=== PATIENT | female | born 1945 | race Caucasian/White ===

== ENCOUNTER 2017-02-05 07:47 | Emergency (ER) | payer MEDICARE ==
[2017-02-05 08:06] LABS: Urine Bilirubin Negative (NEGATIVE); Urine Blood 25 /ul (NEGATIVE); Urine Ketone 15 mg/dL (NEGATIVE); Urine Nitrite Negative (NEGATIVE); Urine Protein Negative (NEGATIVE); Urine Urobilinogen Normal (NORMAL); Urine pH 5.5 pH (5.0-7.0)
[2017-02-05 08:24] LABS: Hematocrit 38.2 % (37.0-47.0); Hemoglobin 11.9 gm/dL (12.5-16.0); Mean Cell Volume 82.3 fl (78-100); Mean Corpuscular Hemoglobin 25.6 pg (27-31); Mean Corpuscular Hgb Conc 31.2 g/dl (32-36); Mean Platelet Volume 11.6 fl (6.0-9.5); Neutrophil # 4.6 K/mm3 (1.3-6.0); Neutrophil % 70.7 % (42-75.0); Platelet Count 224 K/mm3 (150-450); Red Blood Count 4.64 M/mm3 (4.2-5.4); Red Cell Distribution Width 14.2 % (11.5-14.0); White Blood Count 6.5 K/mm3 (4.0-10.5)
[2017-02-05 08:29] LABS: Urine Appearance Clear; Urine Bacteria None Seen; Urine Color Yellow; Urine RBC TRACE /hpf (0-5); Urine WBC None Seen /hpf (0-5)
[2017-02-05 08:37] LABS: Albumin * 3.1 gm/dl (3.4-5.0); Anion Gap 17.3 mmol/L (6.8-13.8); BUN/Creatinine Ratio 24.3 (9.0-21.6); Bilirubin, Total 0.5 mg/dL (0.0-1.1); Ca. Corrected For Albumin 9.6 mg/dL (8.4-10.2); Calcium * 9.2 mg/dL (7.9-10.9); Carbon Dioxide 26.4 mmol/L (24-32.6); Magnesium 1.8 mg/dL (1.2-2.8); Potassium 4.7 mmol/L (3.4-4.6); Total Protein 7.8 gm/dL (6.2-8.2)
--- NOTE | 2017-02-05 09:17 | ERNOTE ---
Medical Problem HPI - General Chief Complaint: General Assessment Time Seen by Provider: 02/05/17 08:09 Source: patient, EMS Exam Limitations: no limitations - Immun/Allergies/Home Medications Immunizations: IMMUNIZATION HX Immunizations Up to Date Yes History of Influenza Vaccine No Hx Pneumococcal Vaccination No Allergies/Adverse Reactions: Allergies No Known Allergies Allergy (Verified 02/05/17 08:02) Home Medications: HOME MEDICATIONS Levothyroxine Sodium [Synthroid] 75 mcg PO DAILY@0700 #60 tablet 05/05/16 [Last Taken Unknown] Lisinopril [Zestril] 10 mg PO BID #60 tablet 05/05/16 [Last Taken Unknown] metFORMIN HCL [Metformin HCl ER] 500 mg PO BIDWM #60 [id number] 05/05/16 [Last Taken Unknown] Atenolol [Tenormin] 50 mg PO DAILY 02/05/17 [Last Taken Unknown] Furosemide [Lasix] 40 mg PO BID 02/05/17 [Last Taken Unknown] Insulin Glargine,Hum.rec.anlog [Lantus] 12 units SC DAILY 02/05/17 [Last Taken Unknown] - History of Present History Narrative: Patient states she has a long-standing history of falls and that when she falls she is unable to get up. She went outside today and stepped on uneven ground and fell an ambulance had to come and bring her into the emergency room. Patient states that she will not use a walker or cane because they make her more likely to fall. Patient denies any complaint of any kind. Timing: other - chronic falling Review of Systems - Review of Systems Constitutional: Present: See HPI EYE: Present: no symptoms reported ENT: Present: no symptoms reported Respiratory: Present: no symptoms reported Cardiology: Present: no symptoms reported Gastrointestinal/Abdominal: Present: no symptoms reported Genitourinary: Present: no symptoms reported Musculoskeletal: Present: no symptoms reported Skin: Present: no symptoms reported Neurological: Present: no symptoms reported Endocrine: Present: no symptoms reported Hematologic/Lymphatic: Present: no symptoms reported Psych: Present: no symptoms reported - Patient's Past Medical History Patient History - Medical: Diabetes Type 2, GERD, Hypothyroidism, Other Patient History - Cardiac/Respiratory: CHF, Hypertension Patient History - Surgical Procedures: Cholecystectomy, T & A, Other - Tonsilectomy Patient History - Other: None - Family History Mother Family History - Medical: , Diabetes Type 2 Family History - Cardiac/Respiratory: History Unknown Father Family History - Medical: History Unknown - Social History Living Situations: home Abuse History: No History of abuse Psych History: No pertinent hx Does anyone smoke in the home?: No Alcohol Use: none Drug Use: none - Immunizations Immunizations Up to Date: Yes Hx Pneumococcal Vaccination: No History of Influenza Vaccine: No Physical Exam - Physical Exam General Appearance: Present: wd/wn, alert, no apparent distress Eye Exam: Normal inspection: bilateral, PERRL: bilateral Ears, Nose, Throat: Present: normal ENT inspection Neck: Present: normal inspection, nontender Respiratory: Present: no respiratory distress, normal breath sounds, no accessory muscle use Cardiovascular/Chest: Present: regular rate, rhythm, no murmur, normal peripheral pulses Gastrointestinal/Abdominal: Present: normal bowel sounds, nontender, nondistended, soft, no organomegaly Rectal Exam: Present: deferred Back Exam: Present: normal inspection, normal range of motion Extremity Exam: Present: normal inspection, non-tender, no edema, normal range of motion Neurological Exam: Present: disoriented to situation - I suspect an underlying dementia Skin Exam: Present: normal color, warm/dry Lymphatic Exam: Present: no adenopathy ED Progress - Results and Orders Patient's Lab Results:: I have reviewed the patient's lab results. - Vital Signs Patient's Vital Signs:: I have reviewed the patient's vital signs. Vital Signs: Vital Signs 02/05/17 02/05/17 07:49 08:25 Temperature 36.7 C 36.2 C L Pulse Rate 84 97 Respiratory 12 12 Rate Blood Pressure 155/74 146/59 O2 Sat by Pulse 100 98 Oximetry - CT/Ultrasound CT/Ultrasound Narrative: CT of the head was reviewed by me - Progress/Reassessment Chief Complaint: General Assessment Plan - Plan Plan: We are making attempts to try to raise the son by phone. It would be beneficial if we had more history about the patient so we can make the determination of whether she has dementia or not. Medically she appears to be stable however her underlying mental status needs to be determined. The patient is medically stable to be sent home and recommend a home health evaluation and patient will be referred back to her family physician as well for ongoing care and assessment for possible early dementia. Departure - Departure Clinical Impression: Recurrent falls, Cellulitis of both lower extremities Disposition: Home self-care Condition: Good Instructions: Fall Prevention in the Home, [id number] Additional Instructions: Call Dr. Murillo for an appointment Referrals: Fan Murillo MD [Primary Care Provider] -
[2017-02-05 10:55] VITALS: BP 157/69
== END 2017-02-05 11:45 | disposition home or self-care (01) ==
LOC: ER 07:47
DX: L03.116 Cellulitis of left lower limb (principal); L03.115 Cellulitis of right lower limb; R29.6 Repeated falls; E11.9 Type 2 diabetes mellitus without complications; Z79.4 Long term (current) use of insulin; E03.9 Hypothyroidism, unspecified; I10 Essential (primary) hypertension; I50.9 Heart failure, unspecified

== ENCOUNTER 2017-07-16 20:02 | Inpatient (IN) | payer MEDICARE ==
--- NOTE | 2017-07-16 21:45 | ERNOTE ---
Neuro HPI ER Record Presenting Symptoms: weakness Time Seen by Provider: 07/16/17 21:15 Source: family Exam Limitations: clinical condition Immunizations: IMMUNIZATION HX Immunizations Up to Date Yes History of Influenza Vaccine No Hx Pneumococcal Vaccination No Allergies/Adverse Reactions: Allergies Allergy/AdvReac Type Severity Reaction Status Date / Time No Known Allergies Allergy Verified 07/16/17 20:20 Home Medications: HOME MEDICATIONS Levothyroxine Sodium [Synthroid] 75 mcg PO DAILY@0700 #60 tablet 05/05/16 [Last Taken Unknown] metFORMIN HCL [Metformin HCl ER] 500 mg PO BIDWM #60 [id number] 05/05/16 [Last Taken Unknown] Insulin Glargine,Hum.rec.anlog [Lantus] 12 units SC DAILY 02/05/17 [Last Taken Unknown] Lisinopril [Zestril] 10 mg PO DAILY 05/20/17 [Last Taken Unknown] - History of Present Illness Narrative: Son states that the patient has been declining for the past week and worse the past 2-3 days. Her cognition has become very slow and somewhat confused. He states that she also has multiple right leg/ foot pressure ulcers and the right lateral heel wound has gotten worse. Onset: gradual onset Severity: moderate - Character of Deficits Baseline Cognition: Present: alert but confused Baseline Gait: Present: unable to walk Associated Symptoms: Reports: altered mental status. Denies: fever/chills, sweating Review of Systems - Review of Systems Constitutional: Present: recent illness - cough. Absent: fever, chills EYE: Present: no symptoms reported ENT: Absent: nasal drainage Respiratory: Present: shortness of breath, cough Cardiology: Present: no symptoms reported Gastrointestinal/Abdominal: Absent: nausea, vomiting Genitourinary: Absent: frequency, dysuria Musculoskeletal: Present: no symptoms reported Skin: Present: lesions - right leg Neurological: Present: no symptoms reported Endocrine: Present: no symptoms reported Hematologic/Lymphatic: Present: easy bruising - Patient's Past Medical History Patient History - Medical: Diabetes Type 2, GERD, Hypothyroidism, Other Patient History - Cardiac/Respiratory: CHF, CVA/Stroke, Hypertension Patient History - Cancer: No Hx of Cancer Patient History - Surgical Procedures: Cholecystectomy, T & A, Other, Orthopedic Patient History - Other: None - Family History Mother Family History - Medical: , Diabetes Type 2 Family History - Cardiac/Respiratory: History Unknown Family History - Cancer: History Unknown Father Family History - Medical: History Unknown Family History - Cardiac/Respiratory: History Unknown Family History - Cancer: History Unknown - Social History Living Situations: home Abuse History: No History of abuse Psych History: No pertinent hx Smoking Status: Never smoker Have you smoked in the past 12 months: No Do you dip or chew tobacco: No Alcohol Use: none Drug Use: none - Immunizations Immunizations Up to Date: Yes Hx Pneumococcal Vaccination: No History of Influenza Vaccine: No Physical Exam - Physical Exam General Appearance: Present: wd/wn, alert, no apparent distress Head Exam: Present: normal inspection, no evidence of injury Neck: Present: normal inspection, nontender, supple Respiratory: Present: no respiratory distress, rales - left lung. Cardiovascular/Chest: Present: regular rate, rhythm, no murmur Gastrointestinal/Abdominal: Present: normal bowel sounds, nontender, nondistended Extremity Exam: Present: no edema, other - pressure sores right leg (see skin) Neurological Exam: Present: alert Skin Exam: Present: other - heel 3 cm x 2 cm pressure ulcer with thick dry black eschar. There is a crack above heel slightly anterior 1.5 cm x 1 cm, and another pressure wound in the mid leg lateral that is 4 cm x 2 cm dry with scaly skin surrounding. Bilateral legs are scaly and peeling. Right leg is somewhat red in color from mid tibia to foot. Toes are somewhat deformed and toenails are distrophic and deformed. ED Progress - Results and Orders Patient's Lab Results:: I have reviewed the patient's lab results. Results and Orders: Laboratory Tests 07/16/17 07/16/17 07/16/17 20:12 21:20 21:50 WBC 10.9 H Hgb 9.9 L Hct 31.3 L Plt Count 275 Neutrophils % 89.5 H Sodium Potassium Chloride Carbon Dioxide Anion Gap BUN Creatinine Est GFR (Non-Af Amer) Random Glucose Lactic Acid, Venous Calcium Total Bilirubin AST ALT Alkaline Phosphatase Troponin I 0.125 H* B-Natriuretic [place]ptide [place] [address] H Total Protein Albumin Urine Color Urine Appearance Urine pH Ur Specific Filion Urine Protein Urine Glucose (UA) Urine Ketones Urine Blood Urine Nitrate Urine Bilirubin Prot Sulfosalicylic Acd Urine Urobilinogen Ur Leukocyte Esterase Urine RBC Urine WBC Ur Epithelial Cells Amorphous Sediment Urine Bacteria Coarse Granular Casts Urine Culture Comments Influenza Type A Ag Negative Influenza Type B Ag Negative 07/16/17 07/16/17 07/16/17 21:50 21:50 22:05 WBC Hgb Hct Plt Count Neutrophils % Sodium 139 Potassium 3.7 D Chloride 102 Carbon Dioxide 26.7 Anion Gap 14.0 H BUN 34 H Creatinine 1.75 H D Est GFR (Non-Af Amer) 30 L D Random Glucose 197 H Lactic Acid, Venous 1.9 Calcium 8.4 Total Bilirubin 0.4 AST 30 ALT 17 L Alkaline Phosphatase 74 Troponin I B-Natriuretic Peptide Total Protein 7.2 Albumin 2.0 L Urine Color Kami Urine Appearance Cloudy Urine pH 6.5 Ur Specific Filion 1.025 Urine Protein 100 H Urine Glucose (UA) 100 H Urine Ketones Negative Urine Blood 250 H Urine Nitrate Negative Urine Bilirubin Negative Prot Sulfosalicylic Acd 3+ H Urine Urobilinogen Normal Ur Leukocyte Esterase Negative Urine RBC 25-50 H Urine WBC 0-5 Ur Epithelial Cells None seen Amorphous Sediment Trace Urine Bacteria Trace Coarse Granular Casts Trace Urine Culture Comments No culture indicated Influenza Type A Ag Influenza Type B Ag - Vital Signs Patient's Vital Signs:: I have reviewed the patient's vital signs. Vital Signs: Vital Signs 07/16/17 07/16/17 20:13 20:50 Temperature 37.2 C Pulse Rate 95 91 Respiratory 19 22 H Rate Blood Pressure 146/72 155/65 O2 Sat by Pulse 85 L 92 Oximetry - EKG EKG: NSR, nonspecific ST T wave changes EKG read: Interp. by me EKG Comments: computer reading states "anterior OK probably recent". There is minimal ST elevation in V3 and no significant elevation in V4. Comparison from 05/02/16 reads old anterior OK. - X-Ray X-Ray #1 X-Ray: chest Interpretation: Interp. by me X-ray Comments: patchy infiltrate throughout the right lung and left lower lobe. - CT/Ultrasound CT/Ultrasound Narrative: CT head: generalized volume loss chronic microvascular angiopathy No midline shift or acute hemorrhage no evidence for acute ischemia Inflammitory changes in the paranasal sinuses - Progress/Reassessment Chief Complaint: Altered Mental Status Progress:: Improved Progress Note-Subjective: 07/17/17 00:21 After troponin was found to be slightly elevated hospitalist asked if I would contact the son to inquire if they would want and invasive procedures done if the did have an OK. I spoke to the patients son Neel and he said he would not want invasive procedures done at this time. Hospitalist notified. Departure Clinical Impression: Dehydration, PAD (peripheral artery disease) Pneumonia Qualifiers: Pneumonia type: due to unspecified organism Laterality: bilateral Lung location : unspecified part of lung Qualified Code(s): J18.9 - Pneumonia, unspecified organism Uncontrolled diabetes mellitus Qualifiers: Diabetes mellitus type: type 2 Diabetes mellitus complication status: with circulatory complication Diabetes mellitus complication detail: with peripheral angiopathy without gangrene Diabetes mellitus resource development manager insulin use: with assisted use Qualified Code(s): E11.51 - Type 2 diabetes mellitus with diabetic peripheral angiopathy without gangrene Cellulitis Qualifiers: Site of cellulitis: extremity Site of cellulitis of extremity: lower extremity Laterality: right Qualified Code(s): L03.115 - Cellulitis of right lower limb CHF (congestive heart failure), NYHA class II Qualifiers: Congestive heart failure type: systolic Congestive heart failure chronicity: acute on chronic Qualified Code(s): I50.23 - Acute on chronic systolic ( congestive) heart failure - Departure Disposition: Still a patient Condition: Fair
[2017-07-16 21:49] LABS: Hematocrit 31.3 % (37.0-47.0); Hemoglobin 9.9 gm/dL (12.5-16.0); Mean Cell Volume 78.1 fl (78-100); Mean Corpuscular Hemoglobin 24.7 pg (27-31); Mean Corpuscular Hgb Conc 31.6 g/dl (32-36); Mean Platelet Volume 10.6 fl (6.0-9.5); Neutrophil # 9.8 K/mm3 (1.3-6.0); Neutrophil % 89.5 % (42-75.0); Platelet Count 275 K/mm3 (150-450); Red Blood Count 4.01 M/mm3 (4.2-5.4); Red Cell Distribution Width 16.1 % (11.5-14.0); White Blood Count 10.9 K/mm3 (4.0-10.5)
[2017-07-16 22:03] LABS: BUN/Creatinine Ratio 19.4 (9.0-21.6); Bilirubin, Total 0.4 mg/dL (0.0-1.1); Ca. Corrected For Albumin 9.7 mg/dL (8.4-10.2); Calcium * 8.4 mg/dL (7.9-10.9); Carbon Dioxide 26.7 mmol/L (24-32.6); Potassium 3.7 mmol/L (3.4-4.6); Total Protein 7.2 gm/dL (6.2-8.2)
[2017-07-16] MEDS ORDERED: NORMAL SALINE 1,000 ML IV ONE (22:12)
[2017-07-16 22:16] LABS: Urine Bilirubin Negative (NEGATIVE); Urine Blood 250 /ul (NEGATIVE); Urine Ketone Negative (NEGATIVE); Urine Nitrite Negative (NEGATIVE); Urine Protein 100 mg/dL (NEGATIVE); Urine Specific Gravity 1.025 SP.GR. (1.005-1.010); Urine Urobilinogen Normal (NORMAL); Urine pH 6.5 pH (5.0-7.0)
[2017-07-16 22:28] LABS: Urine Appearance Cloudy; Urine Color Amber
[2017-07-16 22:29] LABS: Urine Amorphous Sediment TRACE (NONE-FEW); Urine Bacteria TRACE; Urine Coarse Granular Cast TRACE /LPF; Urine RBC 25-50 /hpf (0-5); Urine WBC 0-5 /hpf (0-5)
[2017-07-16 23:26] LABS: BNP * Greater than 35000 pg/mL (5-325); Troponin I 0.125 ng/ml (0.00-0.10)
[2017-07-16] MEDS ORDERED: FUROSEMIDE 10 MG/ML VIAL IV ONE (23:56)
[2017-07-16] MEDS ORDERED: FUROSEMIDE 10 MG/ML VIAL ONE (23:58)
[2017-07-17] MEDS ORDERED: AZITHROMYCIN 250 MG TABLET PO ONE (00:39)
[2017-07-17] MEDS ORDERED: ALBUTEROL SULFATE/IPRATROPIUM 3 ML NEBU IH SCH (01:00)
[2017-07-17] MEDS ORDERED: HEPARIN SODIUM,PORCINE 5,000 UNITS/ML VIAL SC SCH (01:00)
--- NOTE | 2017-07-17 01:00 | HP ---
Chief Complaint - Chief Complaint Date of Service: 07/17/17 Time of Service: 00:23 Chief Complaint: "Coughing, Weakness, AMS". Source of HPI- Pt unreliable due to AMS, Pt's son/POA- Logan Young. History of Present Illness: Mrs. Young is a 71-yr-old WF pt of Dr. Adali Murillo with a PMH of: CVA, DM II, GERD, HTN & Osteoathritis. Pt is unable to provide history due to AMS and therefore son, Logan Young who is also POA provided most of the information. He states that for the last 1 week, his mother has been declining. Her thought process does not seem clear and appears not to follow instructions. She has also been very weak and unable to ambulate much due to pain from the ulcer wound on the RT foot. The wound became open 2-3 weeks ago and has been getting worse and black. 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 He finally chose to bring her to the ED as she wasn 't improving. On arrival to ED, POX was found to be 85% RA and required O2 supplementation and was unable to be weaned off as she kept having desaturations. Laboratory studies showed WBC--> 10,900 with a LT shift, ESR--> 104, BUN/CR--> 34/1.75, BNP--> greater than 35,000, Troponin-->0.125. On physical exam, she has non-pitting BLE, with erythema and an ulcer on RT ankle with eschar tissue. The head CT did not have any acute findings. The CXR showed Bilateral infiltrates suggestive of Pneumonia, but Pulmonary edema also could not be excluded. Pt will need to be admitted inpatient for Pneumonia,CHF exacerbation and Cellulitis. - Patient's Past Medical History Patient History - Medical: Diabetes Type 2, GERD, Hypothyroidism, Other Patient History - Cardiac/Respiratory: CHF, CVA/Stroke, Hypertension Patient History - Cancer: No Hx of Cancer Patient History - Surgical Procedures: Cholecystectomy, T & A, Other, Orthopedic Patient History - Other: None - Family History Mother Family History - Medical: , Diabetes Type 2 Family History - Cardiac/Respiratory: History Unknown Family History - Cancer: History Unknown Father Family History - Medical: History Unknown Family History - Cardiac/Respiratory: History Unknown Family History - Cancer: History Unknown - Social History Living Situations: home Abuse History: No History of abuse Psych History: No pertinent hx Smoking Status: Never smoker Have you smoked in the past 12 months: No Do you dip or chew tobacco: No Alcohol Use: none Drug Use: none - Immunizations Immunizations Up to Date: Yes Hx Pneumococcal Vaccination: No History of Influenza Vaccine: No Review Of Systems (GEN) - Review of Systems Additional Comments: ROS unobtainable. Immunizations: IMMUNIZATION HX Immunizations Up to Date Yes History of Influenza Vaccine No Hx Pneumococcal Vaccination No Allergies/Adverse Reactions: Allergies Allergy/AdvReac Type Severity Reaction Status Date / Time No Known Allergies Allergy Verified 07/16/17 20:20 Home Medications: HOME MEDICATIONS Levothyroxine Sodium [Synthroid] 75 mcg PO DAILY@0700 #60 tablet 05/05/16 [Last Taken Unknown] metFORMIN HCL [Metformin HCl ER] 500 mg PO BIDWM #60 [id number] 05/05/16 [Last Taken Unknown] Insulin Glargine,Hum.rec.anlog [Lantus] 12 units SC DAILY 02/05/17 [Last Taken Unknown] Lisinopril [Zestril] 10 mg PO BID 05/20/17 [Last Taken Unknown] Atenolol [Tenormin] 50 mg PO DAILY 07/17/17 [Last Taken Unknown] Furosemide [Lasix] 40 mg PO BID 07/17/17 [Last Taken Unknown] Exam - Exam Vital Signs: Vital Signs - Last Taken Temp 37.4 C 07/16/17 23:45 Pulse 84 07/17/17 00:17 Resp 20 07/17/17 00:17 BP 137/68 07/17/17 00:17 Pulse Ox 96 07/17/17 00:17 Constitutional: Present: Alert, Elderly, Looks Older than stated age ENT Exam: Present: normal ENT inspection, moist mucous membranes. Absent: nasal drainage Eye Exam: bilateral eye: normal inspection, PERRL Neck: Present: non-tender, full range of motion, normal inspection Back Exam: Present: normal inspection Respiratory: Present: crackles, rhonchi Cardiovascular/Chest: Present: normal peripheral pulses, regular rate, rhythm, no chest tenderness Abdomen: Present: Normal bowel sounds, nontender /Rectal: Present: Exam deferred Extremity: Present: lower extremity edema, other Skin Exam: Present: other - Erythema on BLE, warm and tender to touch. Stage pressure ulcer on outer ankle of RT foot. Lymphatic: Present: no adenopathy Neurologic: Present: alert. Absent: aphasia, facial droop Appearance: Present: impaired insight Eye contact: Absent: cooperative, good eye contact Thoughts: Present: no apparent hallucination Diagnostic Studies: Laboratory Results WBC 10.9 K/mm3 (4.0-10.5) H 07/16/17 21:50 RBC 4.01 M/mm3 (4.2-5.4) L 07/16/17 21:50 Hgb 9.9 gm/dL (12.5-16.0) L 07/16/17 21:50 Hct 31.3 % (37.0-47.0) L 07/16/17 21:50 MCV 78.1 fl (78-100) 07/16/17 21:50 MCH 24.7 pg (27-31) L 07/16/17 21:50 MCHC 31.6 g/dl (32-36) L 07/16/17 21:50 RDW 16.1 % (11.5-14.0) H 07/16/17 21:50 Plt Count 275 K/mm3 (150-450) 07/16/17 21:50 MPV 10.6 fl (6.0-9.5) H 07/16/17 21:50 Immature Gran % (Auto) 0.30 % (0.001-0.429) 07/16/17 21:50 Immature Gran # (Auto) 0.03 K/mm3 (0.000-0.0310) 07/16/17 21:50 Neutrophils % 89.5 % (42-75.0) H 07/16/17 21:50 Lymphocytes % 7.9 % (20-51) L 07/16/17 21:50 Monocytes % 2.1 % (0.0-9) 07/16/17 21:50 Eosinophils % 0.0 % (0.0-3.0) 07/16/17 21:50 Basophils % 0.2 % (0.0-1.0) 07/16/17 21:50 Nucleated RBC % 0.0 k/mm3 (0-1) 07/16/17 21:50 Neutrophils # 9.8 K/mm3 (1.3-6.0) H 07/16/17 21:50 Lymphocytes # 0.9 k/mm3 (1.5-3.5) L 07/16/17 21:50 Monocytes # 0.2 k/mm3 (0.0-1.0) 07/16/17 21:50 Eosinophils # 0.0 k/mm3 (0.0-0.7) 07/16/17 21:50 Absolute Basophils 0.0 k/mm3 (0.0-0.1) 07/16/17 21:50 Sodium 139 mmol/L (132-142) 07/16/17 21:50 Plasma Sodium 141 mmol/L (130-142) 07/16/17 21:50 Potassium 3.7 mmol/L (3.4-4.6) D 07/16/17 21:50 Chloride 102 mmol/L (97-106) 07/16/17 21:50 Carbon Dioxide 26.7 mmol/L (24-32.6) 07/16/17 21:50 Anion Gap 14.0 mmol/L (6.8-13.8) H 07/16/17 21:50 BUN 34 mg/dL (3-23) H 07/16/17 21:50 Creatinine 1.75 mg/dL (0.4-1.4) H D 07/16/17 21:50 Est GFR (Non-Af Amer) 30 mL/min (60-130) L D 07/16/17 21:50 BUN/Creatinine Ratio 19.4 (9.0-21.6) 07/16/17 21:50 Random Glucose 197 mg/dL (70-110) H 07/16/17 21:50 Lactic Acid, Venous 1.9 mmol/L (0.4-1.9) 07/16/17 21:50 Calcium 8.4 mg/dL (7.9-10.9) 07/16/17 21:50 Calcium Adj for Albumin 9.7 mg/dL (8.4-10.2) 07/16/17 21:50 Total Bilirubin 0.4 mg/dL (0.0-1.1) 07/16/17 21:50 AST 30 U/L (0-48) 07/16/17 21:50 ALT 17 U/L (19-67) L 07/16/17 21:50 Alkaline Phosphatase 74 U/L (50-170) 07/16/17 21:50 Troponin I 0.125 ng/ml (0.00-0.10) H* 07/16/17 21:20 B-Natriuretic Peptide Greater than 31341 pg/mL (5-325) H 07/16/17 21:20 Total Protein 7.2 gm/dL (6.2-8.2) 07/16/17 21:50 Albumin 2.0 gm/dl (3.4-5.0) L 07/16/17 21:50 Urine Color Kami 07/16/17 22:05 Urine Appearance Cloudy 07/16/17 22:05 Urine pH 6.5 pH (5.0-7.0) 07/16/17 22:05 Ur Specific Victoria 1.025 SP.GR. (1.005-1.010) 07/16/17 22:05 Urine Protein 100 mg/dL (NEGATIVE) H 07/16/17 22:05 Urine Glucose (UA) 100 mg/dL (NEGATIVE) H 07/16/17 22:05 Urine Ketones Negative mg/dL (NEGATIVE) 07/16/17 22:05 Urine Blood 250 /ul (NEGATIVE) H 07/16/17 22:05 Urine Nitrate Negative (NEGATIVE) 07/16/17 22:05 Urine Bilirubin Negative mg/dl (NEGATIVE) 07/16/17 22:05 Prot Sulfosalicylic Acd 3+ mg/dL (0) H 07/16/17 22:05 Urine Urobilinogen Normal EU/dl (NORMAL) 07/16/17 22:05 Ur Leukocyte Esterase Negative /ul (NEGATIVE) 07/16/17 22:05 Urine RBC 25-50 /hpf (0-5) H 07/16/17 22:05 Urine WBC 0-5 /hpf (0-5) 07/16/17 22:05 Ur Epithelial Cells None seen /hpf (0-5) 07/16/17 22:05 Amorphous Sediment Trace (NONE-FEW) 07/16/17 22:05 Urine Bacteria Trace (NONE) 07/16/17 22:05 Coarse Granular Casts Trace /LPF (NONE) 07/16/17 22:05 Urine Culture Comments No culture indicated 07/16/17 22:05 Influenza Type A Ag Negative (NEGATIVE) 07/16/17 20:12 Influenza Type B Ag Negative (NEGATIVE) 07/16/17 20:12 Assessment/Plan - Assessment/Plan (1) Pneumonia Assessment: Pt reported to have a cough and had desaturations to the mid 80's requiring 02 supplementation. The CXR showed galilea. infitrate concerning for pneumonia. LT shift noted on CBC. Influenza screen was negative. will add Strep. Pneumo and Legionella ag to check for other pathogen associated with CAP. Blood and sputum cultures are pending. She has a CURB -65 score of 2 which calls for inpatient care. Firstline option of Antibiotics are Azithromycin& Rocephin and she received these however, due to concern for Cellulitis/osteomyelitis, she will need Vanco and therefore may not need to continue the betalactam and macrolide Ax. Nursing will push Cornet q 2, encourage early ambulation. Monitor CBC in am. Problem: Acute Qualifiers: Pneumonia type: due to unspecified organism Laterality: bilateral Lung location: unspecified part of lung Qualified Code(s): J18.9 - Pneumonia, unspecified organism (2) Cellulitis Assessment: Pt noted to have erythema on BLE, warm and tender to touch. She has a skin breach with an un-stagable ulcer on RT ankle with eschar tissue. ESR is elevated. Will need imaging to determine if there is deep tissue infections/ osteomyletis. Will obtain RT foot X-ray. Will cover with Vancomycin and due to sloughing the skin, there is concern for deep infection and therefore could add Zosyn too. Problem: Acute Qualifiers: Site of cellulitis of extremity: lower extremity (3) Acute exacerbation of CHF (congestive heart failure) Assessment: Pt noted to have fluid overload signs; swelling on BLE, BNP--> greater than 35, 000, Pulm. edema on Xray and Enlarged heart. Given Lasix 40 mg at the ED. Will monitor fluid volume status, kidney function and strict I/O to determine daily diuretic doses. May also need an Echocardiogram to assess left & rt ventricular systolic function and EF Will place on Telemetry monitoring to determine other causes of HF e.g arrythmias.. Problem: Acute Qualifiers: Congestive heart failure type: combined Qualified Code(s): I50.43 - Acute on chronic combined systolic (congestive) and diastolic (congestive) heart failure (4) Acute kidney injury Assessment: Is likely pre-renal due to Acute Heart Failure- has signs of third space shift and will give diuretics to help pull fluid into intravascular space. Monitor BMP in am. She likely has CKD III Laboratory Tests 05/02/16 05/25/16 02/05/17 12:15 13:50 08:20 Est GFR (Non-Af Amer) 41 L 52 L D 49 L 07/16/17 21:50 Est GFR (Non-Af Amer) 30 L D Problem: Acute (5) HTN (hypertension) Assessment: Hold Lisinopril due to JANICE. Problem: Chronic (6) Unstageable pressure ulcer of ankle Assessment: RT ankle has ulcer with Eschar tissue. Will consult Wound care/or surgery as treatment should be aimed toward removing necrotic debris and maintaining moist wound bed to promote healing and formation of granulation tissue. Nursing will promote mobility and reposition q 2 hrs. . Problem: Acute Qualifiers: Laterality: right Qualified Code(s): L89.510 - Pressure ulcer of right ankle, unstageable (7) Elevated troponin Assessment: Noted to have Troponin of 0.125. It is likely due to demand ischemia from Acute Heart failure or CKD. Could also be due to ACS/FL and ERP spoke to the son/LAURYN marsh if that were to be the case and if he wanted to persue invasive treatment vs conservative/medical mgt. He declined the invasive option. Will mgt pt with Aspirin and BB. Problem: Acute (8) Diabetes Assessment: Continue with Lantus, will add start SSI for better control of blood sugars during infection phase .Hold Metformin due to JANICE and in the event of imaging studies req. contrast. Continue accuchcks ACHS and Consistent carb diet. Problem: Chronic Qualifiers: Diabetes mellitus type: type 2 (9) CVA (cerebral vascular accident) Problem: Chronic (10) GERD (gastroesophageal reflux disease) Problem: Chronic
[2017-07-17] MEDS ORDERED: VANCOMYCIN HCL 1 GM in DEXTROSE 5 % IN WATER 250 ML IV SCH ×2 (01:30)
[2017-07-17] MEDS ORDERED: VANCOMYCIN HCL 1 GM in NORMAL SALINE 250 ML IV SCH (02:00)
[2017-07-17] MEDS ORDERED: AZITHROMYCIN 250 MG TABLET ONE (03:19)
[2017-07-17] MEDS ORDERED: ALBUTEROL SULFATE 2.5 MG/0.5 ML VIAL.NEB IH ONE (05:30)
[2017-07-17] MEDS ORDERED: ALBUTEROL SULFATE/IPRATROPIUM 3 ML NEBU IH ONE (05:56)
[2017-07-17] MEDS: ALBUTEROL SULFATE/IPRATROPIUM 3 ML NEBU IH SCH ×3 (05:59→18:12)
[2017-07-17 06:04] LABS: Hematocrit 32.9 % (37.0-47.0); Hemoglobin 10.3 gm/dL (12.5-16.0); Mean Cell Volume 78.3 fl (78-100); Mean Corpuscular Hemoglobin 24.5 pg (27-31); Mean Corpuscular Hgb Conc 31.3 g/dl (32-36); Mean Platelet Volume 10.3 fl (6.0-9.5); Neutrophil # 5.4 K/mm3 (1.3-6.0); Neutrophil % 82.9 % (42-75.0); Platelet Count 270 K/mm3 (150-450); Red Cell Distribution Width 16.2 % (11.5-14.0); White Blood Count 6.6 K/mm3 (4.0-10.5)
[2017-07-17 06:16] LABS: Anion Gap 12.4 mmol/L (6.8-13.8); BUN/Creatinine Ratio 16.8 (9.0-21.6); Calcium * 8.5 mg/dL (7.9-10.9); Carbon Dioxide 29.1 mmol/L (24-32.6); Estimated Creat Clear 20.4; Potassium 3.5 mmol/L (3.4-4.6); Troponin I 0.065 ng/ml (0.00-0.10)
[2017-07-17] MEDS: INSULIN LISPRO 100 UNITS/ML VIAL SC SCH ×4 (07:31→21:07)
[2017-07-17] MEDS ORDERED: FUROSEMIDE 10 MG/ML VIAL IV ONE ×2 (08:39→19:33)
[2017-07-17] MEDS ORDERED: ALBUTEROL SULFATE/IPRATROPIUM 3 ML NEBU IH PRN (08:40)
[2017-07-17 08:58] LABS: Hemoglobin A1C 10.1 % (4.00-6.0)
[2017-07-17] MEDS ORDERED: METFORMIN HCL 500 MG PO SCH (09:00)
[2017-07-17] MEDS ORDERED: VANCOMYCIN HCL 750 MG in NORMAL SALINE 250 ML IV SCH (09:00)
[2017-07-17] MEDS: LEVOTHYROXINE SODIUM 75 MCG TABLET PO SCH (09:39)
[2017-07-17] MEDS: ATENOLOL 50 MG TABLET PO SCH (09:39)
[2017-07-17] MEDS: FUROSEMIDE 40 MG TABLET PO SCH ×2 (09:39→21:03)
[2017-07-17] MEDS: ASPIRIN 81 MG TABLET.DR PO SCH (09:39)
[2017-07-17] MEDS: NYSTATIN 30 APPL TUBE TP SCH ×3 (09:40→17:44)
[2017-07-17] MEDS: LISINOPRIL 10 MG TABLET PO SCH ×2 (09:40→21:04)
[2017-07-17] MEDS: INSULIN GLARGINE,HUM.REC.ANLOG 100 UNITS/ML VIAL SC SCH (09:40)
[2017-07-17] MEDS ORDERED: AZITHROMYCIN 250 MG TABLET PO SCH ×2 (10:30→21:00)
[2017-07-17] MEDS: ENOXAPARIN SODIUM 30 MG/0.3 ML SYRG SC SCH (12:29)
[2017-07-17] MEDS: VANCOMYCIN HCL 750 MG in NORMAL SALINE 250 ML IV SCH (16:24)
[2017-07-17] MEDS: metroNIDAZOLE/SODIUM CHLORIDE 500 MG/100 ML BAG IV SCH (18:49)
[2017-07-17] MEDS: NYSTATIN 15 APPL BTL TP SCH (21:15)
[2017-07-17] MEDS: cefTRIAXone SODIUM 1,000 MG in DEXTROSE 5 % IN WATER 50 ML IV SCH ×2 (22:32)
[2017-07-18] MEDS: ALBUTEROL SULFATE/IPRATROPIUM 3 ML NEBU IH SCH ×4 (01:01→18:15)
[2017-07-18] MEDS ORDERED: ACETAMINOPHEN 325 MG SUPP.RECT RC PRN (01:09)
--- NOTE | 2017-07-18 01:09 | PN ---
Progess Note - Interim Date: 07/18/17 Time: 01:00 Narrative: 07/18/17 01:00 A-fib RVR rate 140-160 sustained, pt had refused her atenolol earlier. Metoprolol 5mg x3 doses and re-eval. pt tolerated only one dose due to drop in blood pressure after first dose BP 64/37 and HR 120's. Hypoxic SPo2-->86-89% on 4 L nasal cannula, neb treatment and switched to venturi mask. On venti mask 50 % at 15L pt Spo2---> 88%-90%. Will obtain ABG for baseline and plan for Bipap. If or when BP improved, may give additional dose of Lasix considering lungs filed with crackles and rhonchi. Pt with history dementia and stated her legs hurt. case was discussed with Dr Roper and agreeable with plan. ABG: PH 7.47. Epd632, PO 67, will hold off on the bipap for now: Spo2 94% on venti-mask Later entry 21:00 Misc: Pt had poor oral intake and total urine output 800ml urine on 1st shift. Per Dr silver give Additional dose Lasix 120mg x1, it was held due to hypotension BP 84/36--->104/43--->107/48. 07/18/17 03:42 A-fib converted to NSR, obtain EKG to confirm.
[2017-07-18] MEDS: METOPROLOL TARTRATE 1 MG/ML AMPUL IV SCH ×4 (01:10→03:21)
[2017-07-18] MEDS: metroNIDAZOLE/SODIUM CHLORIDE 500 MG/100 ML BAG IV SCH ×3 (02:00→19:15)
[2017-07-18 05:59] LABS: Hematocrit 27.2 % (37.0-47.0); Hemoglobin 8.6 gm/dL (12.5-16.0); Mean Cell Volume 76.2 fl (78-100); Mean Corpuscular Hemoglobin 24.1 pg (27-31); Mean Corpuscular Hgb Conc 31.6 g/dl (32-36); Mean Platelet Volume 10.5 fl (6.0-9.5); Neutrophil # 4.1 K/mm3 (1.3-6.0); Platelet Count 249 K/mm3 (150-450); Red Blood Count 3.57 M/mm3 (4.2-5.4); Red Cell Distribution Width 16.1 % (11.5-14.0); White Blood Count 5.3 K/mm3 (4.0-10.5)
[2017-07-18 06:15] LABS: Albumin * 1.5 gm/dl (3.4-5.0); Anion Gap 13.3 mmol/L (6.8-13.8); BUN/Creatinine Ratio 18.8 (9.0-21.6); Bilirubin, Total 0.2 mg/dL (0.0-1.1); Ca. Corrected For Albumin 9.6 mg/dL (8.4-10.2); Calcium * 7.9 mg/dL (7.9-10.9); Carbon Dioxide 29.5 mmol/L (24-32.6); Potassium 2.8 mmol/L (3.4-4.6); Total Protein 5.8 gm/dL (6.2-8.2)
[2017-07-18] MEDS: INSULIN LISPRO 100 UNITS/ML VIAL SC SCH ×4 (06:49→22:09)
[2017-07-18] MEDS: LEVOTHYROXINE SODIUM 75 MCG TABLET PO SCH (06:50)
[2017-07-18] MEDS ORDERED: NORMAL SALINE 1,000 ML IV PRN (08:17)
[2017-07-18] MEDS: NYSTATIN 15 APPL BTL TP SCH ×2 (08:27→21:49)
[2017-07-18] MEDS: ASPIRIN 81 MG TABLET.DR PO SCH (08:27)
[2017-07-18] MEDS: INSULIN GLARGINE,HUM.REC.ANLOG 100 UNITS/ML VIAL SC SCH (08:28)
[2017-07-18] MEDS: ATENOLOL 50 MG TABLET PO SCH (08:29)
[2017-07-18] MEDS: LISINOPRIL 10 MG TABLET PO SCH ×2 (08:29→21:51)
[2017-07-18] MEDS: FUROSEMIDE 40 MG TABLET PO SCH ×2 (08:41→21:51)
--- NOTE | 2017-07-18 08:59 | PN ---
Subjective - Date and Time Seen Date: 07/18/17 Time: 08:48 Subjective Narrative: She is more awake but has been refusing all oral meds and have poor oral intake During the night she went into A. fib with rapid ventricular response. She was given 5 mg IV Lopressor converted; back to sinus but the blood pressure has been low for urine output. And BUN/creatinine has gone up with low K; she is now on Ventimask with O2 sat over 90 Chest x-ray is essentially unchanged showing bilateral lung infiltrates Objective - Review of Systems Generalized/Overall Review: Reports: Weakness Respiratory: Reports: Cough, Shortness of Breath Cardiac: Reports: No Symptoms Reported Abdominal: Reports: No Symptoms Reported Genitourinary Symptoms: Reports: Incontinent - Vitals Vitals: Last Vital Signs Temp 37.4 C 07/18/17 06:56 Pulse 77 07/18/17 08:41 Resp 20 07/18/17 06:56 BP 88/42 07/18/17 08:41 Pulse Ox 96 07/18/17 06:56 - Abnormal Lab Findings Abnormal Lab Findings: Abnormal Lab Results 07/17/17 07/17/17 07/17/17 Range/Units 05:00 05:54 05:54 RBC (4.2-5.4) M/mm3 Hgb (12.5-16.0) gm/dL Hct (37.0-47.0) % MCV (78-100) fl MCH (27-31) pg MCHC (32-36) g/dl RDW (11.5-14.0) % MPV (6.0-9.5) fl Neutrophils % (42-75.0) % Lymphocytes # (1.5-3.5) k/mm3 pO2 (83.0-108.0) mmHg Total CO2 (19.0-24.0) mmol/L ABG pH (7.35-7.45) Sodium (132-142) mmol/L Plasma Sodium (130-142) mmol/L Potassium (3.4-4.6) mmol/L BUN (3-23) mg/dL Creatinine (0.4-1.4) mg/dL Est GFR (Non-Af Amer) (60-130) mL/min Random Glucose (70-110) mg/dL Hemoglobin A1c 10.1 H (4.00-6.0) % ALT (19-67) U/L C-Reactive Prot, Quant 26.7 H (0.0-0.9) mg/dL Total Protein (6.2-8.2) gm/dL Albumin (3.4-5.0) gm/dl Procalcitonin 2.70 H (0.05-0.50) ng/mL 07/18/17 07/18/17 07/18/17 Range/Units 01:45 05:57 05:57 RBC 3.57 L (4.2-5.4) M/mm3 Hgb 8.6 L (12.5-16.0) gm/dL Hct 27.2 L (37.0-47.0) % MCV 76.2 L (78-100) fl MCH 24.1 L (27-31) pg MCHC 31.6 L (32-36) g/dl RDW 16.1 H (11.5-14.0) % MPV 10.5 H (6.0-9.5) fl Neutrophils % 77.0 H (42-75.0) % Lymphocytes # 1.1 L (1.5-3.5) k/mm3 pO2 67.9 L (83.0-108.0) mmHg Total CO2 26.0 H (19.0-24.0) mmol/L ABG pH 7.47 H (7.35-7.45) Sodium 145 H (132-142) mmol/L Plasma Sodium 145 H (130-142) mmol/L Potassium 2.8 L (3.4-4.6) mmol/L BUN 48 H (3-23) mg/dL Creatinine 2.56 H D (0.4-1.4) mg/dL Est GFR (Non-Af Amer) 20 L D (60-130) mL/min Random Glucose 111 H (70-110) mg/dL Hemoglobin A1c (4.00-6.0) % ALT 17 L (19-67) U/L C-Reactive Prot, Quant (0.0-0.9) mg/dL Total Protein 5.8 L (6.2-8.2) gm/dL Albumin 1.5 L (3.4-5.0) gm/dl Procalcitonin (0.05-0.50) ng/mL - Exam Constitutional: Present: Alert, No distress, Somnolent Respiratory: Present: rales Cardiovascular/Chest: Present: regular rate, rhythm Abdomen: Present: soft, nontender Extremity: Present: other - Both lower leg with redness tenderness dry skin and scaling skin Cauti Physician Documentation - Urinary Catheter Management Urethral (June) Date of Insertion: 07/17/17 Time of Insertion: 12:45 Assessment/Plan - Problems/Diagnosis (1) Cellulitis Problem: Acute Qualifiers: Site of cellulitis of extremity: lower extremity (2) Dehydration Problem: Acute Narrative: I will start a slow IV hydration (3) Pneumonia Problem: Acute Qualifiers: Pneumonia type: due to unspecified organism Laterality: bilateral Lung location: unspecified part of lung Qualified Code(s): J18.9 - Pneumonia, unspecified organism (4) Acute exacerbation of CHF (congestive heart failure) Problem: Acute Qualifiers: Congestive heart failure type: combined Qualified Code(s): I50.43 - Acute on chronic combined systolic (congestive) and diastolic (congestive) heart failure
[2017-07-18] MEDS: POTASSIUM CHLORIDE 40 MEQ in NORMAL SALINE 1,000 ML IV SCH ×2 (09:21→21:52)
[2017-07-18] MEDS: ENOXAPARIN SODIUM 30 MG/0.3 ML SYRG SC SCH (10:30)
--- NOTE | 2017-07-18 14:47 | ECHO ---
This report is available in the EMR
[2017-07-18] MEDS: VANCOMYCIN HCL 750 MG in NORMAL SALINE 250 ML IV SCH (16:55)
[2017-07-18 18:13] LABS: Albumin * 1.5 gm/dl (3.4-5.0); Anion Gap 13.8 mmol/L (6.8-13.8); Bilirubin, Total 0.2 mg/dL (0.0-1.1); Ca. Corrected For Albumin 9.2 mg/dL (8.4-10.2); Calcium * 7.5 mg/dL (7.9-10.9); Carbon Dioxide 28.6 mmol/L (24-32.6); Potassium 3.4 mmol/L (3.4-4.6); Total Protein 5.8 gm/dL (6.2-8.2)
[2017-07-18 18:24] LABS: BUN/Creatinine Ratio 22.1 (9.0-21.6)
[2017-07-18] MEDS: cefTRIAXone SODIUM 1,000 MG in DEXTROSE 5 % IN WATER 50 ML IV SCH ×2 (22:20)
[2017-07-19] MEDS: ALBUTEROL SULFATE/IPRATROPIUM 3 ML NEBU IH SCH ×4 (00:08→18:10)
[2017-07-19] MEDS: metroNIDAZOLE/SODIUM CHLORIDE 500 MG/100 ML BAG IV SCH ×3 (03:18→21:21)
[2017-07-19 05:39] LABS: Hematocrit 28.8 % (37.0-47.0); Hemoglobin 8.9 gm/dL (12.5-16.0); Mean Cell Volume 78.3 fl (78-100); Mean Corpuscular Hemoglobin 24.2 pg (27-31); Mean Corpuscular Hgb Conc 30.9 g/dl (32-36); Mean Platelet Volume 10.7 fl (6.0-9.5); Platelet Count 264 K/mm3 (150-450); Red Blood Count 3.68 M/mm3 (4.2-5.4); Red Cell Distribution Width 16.4 % (11.5-14.0); White Blood Count 5.3 K/mm3 (4.0-10.5)
[2017-07-19 05:42] LABS: Total Cells Counted 100
[2017-07-19 05:55] LABS: Albumin * 1.6 gm/dl (3.4-5.0); Anion Gap 10.2 mmol/L (6.8-13.8); BUN/Creatinine Ratio 20.5 (9.0-21.6); Bilirubin, Total 0.2 mg/dL (0.0-1.1); Ca. Corrected For Albumin 9.4 mg/dL (8.4-10.2); Calcium * 7.8 mg/dL (7.9-10.9); Carbon Dioxide 31.3 mmol/L (24-32.6); Potassium 3.5 mmol/L (3.4-4.6); Total Protein 6.4 gm/dL (6.2-8.2)
[2017-07-19 05:57] LABS: Band 5 % (0-2.0); Lymphocyte 13 % (20-51); Monocyte 4 % (0-9); Neutrophil 78 % (42-75); Neutrophil # 4.1 K/mm3 (1.3-6.0)
[2017-07-19 05:58] LABS: Hypochromia 1+; Microcytosis 1+; Platelet Estimate Normal (NORMAL); Target Cells 1+
[2017-07-19] MEDS: INSULIN LISPRO 100 UNITS/ML VIAL SC SCH ×4 (06:44→21:22)
[2017-07-19] MEDS ORDERED: HYDROPHILIC OINTMENT 454 APPL JAR TP SCH (06:45)
[2017-07-19] MEDS: LEVOTHYROXINE SODIUM 75 MCG TABLET PO SCH (06:47)
[2017-07-19] MEDS: ASPIRIN 81 MG TABLET.DR PO SCH (09:18)
[2017-07-19] MEDS: ATENOLOL 50 MG TABLET PO SCH (09:19)
[2017-07-19] MEDS: LISINOPRIL 10 MG TABLET PO SCH ×2 (09:19→21:32)
[2017-07-19] MEDS: INSULIN GLARGINE,HUM.REC.ANLOG 100 UNITS/ML VIAL SC SCH (09:21)
[2017-07-19] MEDS: HYDROPHILIC OINTMENT 454 APPL JAR TP SCH ×2 (09:22→21:11)
--- NOTE | 2017-07-19 09:25 | PN ---
Subjective - Date and Time Seen Date: 07/19/17 Time: 09:09 Subjective Narrative: No new complain deny having any pain comfortable more responsive and not short of breath but continued to have poor oral intake Objective - Review of Systems Generalized/Overall Review: Reports: Weakness EENTM: Reports: No Symptoms Reported Respiratory: Reports: Cough Cardiac: Reports: No Symptoms Reported Abdominal: Reports: No Symptoms Reported Genitourinary Symptoms: Reports: Incontinent Skin: Reports: No Symptoms Reported - Vitals Vitals: Last Vital Signs Temp 36.7 C 07/19/17 06:41 Pulse 84 07/19/17 06:41 Resp 20 07/19/17 06:41 BP 149/61 07/19/17 06:41 Pulse Ox 94 07/19/17 06:41 - Abnormal Lab Findings Abnormal Lab Findings: Abnormal Lab Results 07/18/17 07/19/17 07/19/17 Range/Units 17:58 05:35 05:35 RBC 3.68 L (4.2-5.4) M/mm3 Hgb 8.9 L (12.5-16.0) gm/dL Hct 28.8 L (37.0-47.0) % MCH 24.2 L (27-31) pg MCHC 30.9 L (32-36) g/dl RDW 16.4 H (11.5-14.0) % MPV 10.7 H (6.0-9.5) fl Neutrophils % (Manual) 78 H (42-75) % Band Neuts % (Manual) 5 H (0-2.0) % Lymphocytes % (Manual) 13 L (20-51) % Lymphocytes # (Manual) 0.7 L (1.5-3.5) k/mm3 Sodium 146 H 145 H (132-142) mmol/L Plasma Sodium 147 H 145 H (130-142) mmol/L Chloride 107 H 107 H (97-106) mmol/L BUN 58 H 49 H (3-23) mg/dL Creatinine 2.62 H 2.39 H (0.4-1.4) mg/dL Est GFR (Non-Af Amer) 19 L 21 L (60-130) mL/min BUN/Creatinine Ratio 22.1 H (9.0-21.6) Random Glucose 136 H (70-110) mg/dL Calcium 7.5 L 7.8 L (7.9-10.9) mg/dL AST 53 H 52 H (0-48) U/L Total Protein 5.8 L (6.2-8.2) gm/dL Albumin 1.5 L 1.6 L (3.4-5.0) gm/dl - Exam Constitutional: Present: Alert, Oriented x3 Respiratory: Present: crackles, rales Cardiovascular/Chest: Present: regular rate, rhythm Abdomen: Present: soft, nontender Extremity: Present: other - legs look better less redness Eye contact: Present: good eye contact Cauti Physician Documentation - Urinary Catheter Management Urethral (June) Date of Insertion: 07/18/17 Time of Insertion: 10:10 Assessment/Plan - Problems/Diagnosis (1) Cellulitis Problem: Acute Qualifiers: Site of cellulitis of extremity: lower extremity (2) Dehydration Problem: Acute Narrative: Continue slow hydration with 1/2 saline (3) Pneumonia Problem: Acute Qualifiers: Pneumonia type: due to unspecified organism Laterality: bilateral Lung location: unspecified part of lung Qualified Code(s): J18.9 - Pneumonia, unspecified organism (4) Acute exacerbation of CHF (congestive heart failure) Problem: Acute Qualifiers: Congestive heart failure type: combined Qualified Code(s): I50.43 - Acute on chronic combined systolic (congestive) and diastolic (congestive) heart failure
[2017-07-19 09:30] LABS: CRP 21.7 mg/dL (0.0-0.9)
[2017-07-19] MEDS: NYSTATIN 15 APPL BTL TP SCH ×2 (09:30→21:12)
[2017-07-19] MEDS: ENOXAPARIN SODIUM 30 MG/0.3 ML SYRG SC SCH (10:32)
[2017-07-19] MEDS: POTASSIUM CHLORIDE 20 MEQ in 0.5 NORMAL SALINE 1,000 ML IV SCH (10:53)
[2017-07-19] MEDS: VANCOMYCIN HCL 750 MG in NORMAL SALINE 250 ML IV SCH (16:32)
[2017-07-19] MEDS: cefTRIAXone SODIUM 1,000 MG in DEXTROSE 5 % IN WATER 50 ML IV SCH ×2 (22:29)
[2017-07-20] MEDS: metroNIDAZOLE/SODIUM CHLORIDE 500 MG/100 ML BAG IV SCH ×3 (02:02→20:23)
[2017-07-20 05:06] LABS: Hematocrit 28.7 % (37.0-47.0); Hemoglobin 8.8 gm/dL (12.5-16.0); Mean Cell Volume 78.2 fl (78-100); Mean Corpuscular Hgb Conc 30.7 g/dl (32-36); Mean Platelet Volume 10.7 fl (6.0-9.5); Red Blood Count 3.67 M/mm3 (4.2-5.4); Red Cell Distribution Width 16.5 % (11.5-14.0); White Blood Count 4.8 K/mm3 (4.0-10.5)
[2017-07-20 05:09] LABS: Total Cells Counted 100
[2017-07-20 05:21] LABS: Albumin * 1.6 gm/dl (3.4-5.0); Anion Gap 11.3 mmol/L (6.8-13.8); BUN/Creatinine Ratio 23.1 (9.0-21.6); Bilirubin, Total 0.2 mg/dL (0.0-1.1); Ca. Corrected For Albumin 9.3 mg/dL (8.4-10.2); Calcium * 7.7 mg/dL (7.9-10.9); Carbon Dioxide 27.7 mmol/L (24-32.6); Total Protein 6.2 gm/dL (6.2-8.2)
[2017-07-20 05:25] LABS: Atypical (Reactive) Lymph 2 % (0-2); Lymphocyte 27 % (20-51); Monocyte 6 % (0-9); Neutrophil 65 % (42-75); Neutrophil # 3.1 K/mm3 (1.3-6.0); Target Cells 2+
[2017-07-20 05:26] LABS: Microcytosis 1+
[2017-07-20 05:28] LABS: Platelet Count 250 K/mm3 (150-450)
[2017-07-20] MEDS: ALBUTEROL SULFATE/IPRATROPIUM 3 ML NEBU IH SCH ×4 (06:14→18:12)
[2017-07-20] MEDS: INSULIN LISPRO 100 UNITS/ML VIAL SC SCH ×4 (07:25→21:05)
[2017-07-20] MEDS: LEVOTHYROXINE SODIUM 75 MCG TABLET PO SCH (07:26)
[2017-07-20] MEDS: HYDROPHILIC OINTMENT 454 APPL JAR TP SCH ×2 (08:59→22:40)
[2017-07-20] MEDS: ATENOLOL 50 MG TABLET PO SCH (08:59)
[2017-07-20] MEDS: INSULIN GLARGINE,HUM.REC.ANLOG 100 UNITS/ML VIAL SC SCH (09:00)
[2017-07-20] MEDS: NYSTATIN 15 APPL BTL TP SCH ×2 (09:00→22:40)
[2017-07-20] MEDS: ASPIRIN 81 MG TABLET.DR PO SCH (09:00)
[2017-07-20] MEDS: LISINOPRIL 10 MG TABLET PO SCH ×2 (09:01→20:26)
[2017-07-20] MEDS: POTASSIUM CHLORIDE 20 MEQ in 0.5 NORMAL SALINE 1,000 ML IV SCH (11:47)
[2017-07-20] MEDS: ENOXAPARIN SODIUM 30 MG/0.3 ML SYRG SC SCH (11:47)
[2017-07-20] MEDS ORDERED: VANCOMYCIN HCL LEVEL XX ONE (15:30)
[2017-07-20] MEDS: VANCOMYCIN HCL 750 MG in NORMAL SALINE 250 ML IV SCH (18:30)
[2017-07-20] MEDS: cefTRIAXone SODIUM 1,000 MG in DEXTROSE 5 % IN WATER 50 ML IV SCH ×2 (22:40)
[2017-07-21] MEDS: ALBUTEROL SULFATE/IPRATROPIUM 3 ML NEBU IH SCH ×4 (00:01→19:25)
[2017-07-21] MEDS: metroNIDAZOLE/SODIUM CHLORIDE 500 MG/100 ML BAG IV SCH ×3 (03:06→19:29)
[2017-07-21] MEDS: LEVOTHYROXINE SODIUM 75 MCG TABLET PO SCH (08:07)
[2017-07-21] MEDS: INSULIN LISPRO 100 UNITS/ML VIAL SC SCH ×4 (08:08→21:15)
[2017-07-21] MEDS: HYDROPHILIC OINTMENT 454 APPL JAR TP SCH ×2 (10:10→21:06)
[2017-07-21] MEDS: ATENOLOL 50 MG TABLET PO SCH (10:12)
[2017-07-21] MEDS: ASPIRIN 81 MG TABLET.DR PO SCH (10:12)
[2017-07-21] MEDS: NYSTATIN 15 APPL BTL TP SCH ×2 (10:12→21:07)
[2017-07-21] MEDS: LISINOPRIL 10 MG TABLET PO SCH ×2 (10:12→21:06)
[2017-07-21] MEDS: INSULIN GLARGINE,HUM.REC.ANLOG 100 UNITS/ML VIAL SC SCH (10:13)
[2017-07-21] MEDS: POTASSIUM CHLORIDE 20 MEQ in 0.5 NORMAL SALINE 1,000 ML IV SCH (11:52)
[2017-07-21] MEDS: ENOXAPARIN SODIUM 30 MG/0.3 ML SYRG SC SCH (11:54)
[2017-07-21] MEDS: VANCOMYCIN HCL 750 MG in NORMAL SALINE 250 ML IV SCH (16:56)
[2017-07-21] MEDS: HYDROcodone/ACETAMINOPHEN 1 EACH TABLET PO PRN (21:06)
[2017-07-21] MEDS: cefTRIAXone SODIUM 1,000 MG in DEXTROSE 5 % IN WATER 50 ML IV SCH ×2 (23:55)
[2017-07-22] MEDS: ALBUTEROL SULFATE/IPRATROPIUM 3 ML NEBU IH SCH ×4 (00:01→19:15)
[2017-07-22] MEDS: metroNIDAZOLE/SODIUM CHLORIDE 500 MG/100 ML BAG IV SCH ×3 (03:06→20:18)
[2017-07-22] MEDS: LEVOTHYROXINE SODIUM 75 MCG TABLET PO SCH (07:43)
[2017-07-22] MEDS: INSULIN LISPRO 100 UNITS/ML VIAL SC SCH ×4 (07:44→20:24)
[2017-07-22] MEDS: NYSTATIN 15 APPL BTL TP SCH ×2 (09:46→20:18)
[2017-07-22] MEDS: HYDROPHILIC OINTMENT 454 APPL JAR TP SCH ×2 (09:46→20:18)
[2017-07-22] MEDS: ASPIRIN 81 MG TABLET.DR PO SCH (09:47)
[2017-07-22] MEDS: LISINOPRIL 10 MG TABLET PO SCH ×2 (09:47→20:18)
[2017-07-22] MEDS: INSULIN GLARGINE,HUM.REC.ANLOG 100 UNITS/ML VIAL SC SCH (09:47)
[2017-07-22] MEDS: ATENOLOL 50 MG TABLET PO SCH (09:47)
[2017-07-22] MEDS: POTASSIUM CHLORIDE 20 MEQ in 0.5 NORMAL SALINE 1,000 ML IV SCH (10:37)
[2017-07-22] MEDS: ENOXAPARIN SODIUM 30 MG/0.3 ML SYRG SC SCH (10:39)
[2017-07-22] MEDS: HYDROcodone/ACETAMINOPHEN 1 EACH TABLET PO PRN ×2 (13:41→23:21)
--- NOTE | 2017-07-22 14:14 | PN ---
Subjective - Date and Time Seen Date: 07/20/17 Time: 10:00 Subjective Narrative: Patient looks comfortable, not on oxygen[no complaints as she has a history of dementia]. Does have a June's. History of ulcers on both legs and is currently wearing Tubigrip's. Objective - Review of Systems Generalized/Overall Review: Denies: Weakness, Chills, Fever - Vitals Vitals: Vital Signs 07/20/17 06:59 Temperature 36.4 C L Pulse Rate 78 Respiratory 18 Rate Blood Pressure 126/54 O2 Sat by Pulse 93% Oximetry RA - Abnormal Lab Findings Abnormal Lab Findings: Laboratory Tests 07/20/17 05:03 WBC 4.8 Hgb 8.8 L Hct 28.7 L Plt Count 250 07/20/17 05:03 Plasma Sodium 143 H Potassium 4.0 Chloride 107 H Carbon Dioxide 27.7 BUN 48 H Creatinine 2.08 H Est GFR (Non-Af Amer) 25 L Random Glucose 142 H D Calcium Adj for Albumin 9.3 Total Bilirubin 0.2 AST 41 ALT 18 L Alkaline Phosphatase 60 Total Protein 6.2 Albumin 1.6 L - Exam Constitutional: Present: Elderly, Thin and frail - alert, confused, in NAD. ENT Exam: Present: hearing grossly normal, dry mucous membranes Respiratory: Present: decreased breath sounds - in both bases.. Absent: accessory muscle use Cardiovascular/Chest: Present: regular rate, rhythm, systolic murmur Abdomen: Present: Normal bowel sounds, soft, nontender Extremity: Present: other - multiple wounds on both legs in various stages of healing. Skin Exam: Present: warm/dry, pallor Appearance: Present: impaired insight, impaired recent memory, impaired remote memory Cauti Physician Documentation - Urinary Catheter Management Urethral (June) Date of Insertion: 07/22/17 Time of Insertion: 06:42 Date of Removal: 07/20/17 Time of Removal: 17:35 Assessment/Plan - Problems/Diagnosis (1) Cellulitis Problem: Acute Qualifiers: Site of cellulitis: extremity Site of cellulitis of extremity: lower extremity Laterality: right Qualified Code(s): L03.115 - Cellulitis of right lower limb Narrative: of lower extremities. On CTX IV , vancomycin IVand flagyl IV with gradual improvement. (2) Acute exacerbation of CHF (congestive heart failure) Problem: Acute Qualifiers: Congestive heart failure type: combined Qualified Code(s): I50.43 - Acute on chronic combined systolic (congestive) and diastolic (congestive) heart failure (3) Dehydration Problem: Acute
--- NOTE | 2017-07-22 14:22 | PN ---
Subjective - Date and Time Seen Date: 07/21/17 Time: 11:10 Subjective Narrative: Patient continues to be confused, and alert and in no distress. Has pain while moving her lower extremities. Objective - Review of Systems Generalized/Overall Review: Reports: Weakness Respiratory: Denies: Cough, Shortness of Breath Cardiac: Reports: Edema Musculoskeletal Complaints: Reports: Other - pain in lower extremities. - Vitals Vitals: Vital Signs 07/21/17 06:58 Temperature 36.8 C Pulse Rate 73 Resp. Rate. 18 Blood Pressure 151/78 O2 Sat 95% RA - Exam Constitutional: Present: Elderly - alert, not oriented X3 , in NAD. ENT Exam: Present: hearing grossly normal, dry mucous membranes Neck: Present: supple, trachea midline Respiratory: Present: no accessory muscle use, rales - bilaterally Cardiovascular/Chest: Present: regular rate, rhythm, systolic murmur Abdomen: Present: Normal bowel sounds, soft, nontender, nondistended Extremity: Present: lower extremity edema - 1+, dry skin present, 1 inch ulcer present on right heel, covered by black eschar, painful. Several ulcers present on lower extremities in various stages of healing. Erythema and redness present on both lower extremities. Cauti Physician Documentation - Urinary Catheter Management Urethral (June) Date of Insertion: 07/22/17 Time of Insertion: 06:42 Date of Removal: 07/20/17 Time of Removal: 17:35 Assessment/Plan - Problems/Diagnosis (1) Cellulitis Problem: Acute Qualifiers: Site of cellulitis: extremity Site of cellulitis of extremity: lower extremity Laterality: right Qualified Code(s): L03.115 - Cellulitis of right lower limb Narrative: Cellulitis of both lower extremities: Currently on CTX IV, vancomycin IV and metronidazole IV. (2) Acute exacerbation of CHF (congestive heart failure) Problem: Acute Qualifiers: Congestive heart failure type: combined Qualified Code(s): I50.43 - Acute on chronic combined systolic (congestive) and diastolic (congestive) heart failure Narrative: B UN/CR deteriorated after patient received furosemide. (3) Dehydration Problem: Acute
[2017-07-22] MEDS: VANCOMYCIN HCL 750 MG in NORMAL SALINE 250 ML IV SCH (18:29)
[2017-07-22] MEDS: cefTRIAXone SODIUM 1,000 MG in DEXTROSE 5 % IN WATER 50 ML IV SCH ×2 (23:22)
[2017-07-23] MEDS: ALBUTEROL SULFATE/IPRATROPIUM 3 ML NEBU IH SCH ×4 (00:13→18:26)
[2017-07-23] MEDS: metroNIDAZOLE/SODIUM CHLORIDE 500 MG/100 ML BAG IV SCH ×3 (03:31→19:32)
[2017-07-23 05:56] LABS: Hematocrit 26.5 % (37.0-47.0); Hemoglobin 8.4 gm/dL (12.5-16.0); Mean Cell Volume 76.4 fl (78-100); Mean Corpuscular Hemoglobin 24.2 pg (27-31); Mean Corpuscular Hgb Conc 31.7 g/dl (32-36); Mean Platelet Volume 10.3 fl (6.0-9.5); Platelet Count 319 K/mm3 (150-450); Red Blood Count 3.47 M/mm3 (4.2-5.4); Red Cell Distribution Width 16.8 % (11.5-14.0); White Blood Count 4.9 K/mm3 (4.0-10.5)
[2017-07-23 05:58] LABS: Total Cells Counted 100
[2017-07-23 06:12] LABS: Eosinophil 6 % (0-3); Lymphocyte 27 % (20-51); Monocyte 7 % (0-9); Neutrophil 60 % (42-75); Neutrophil # 2.9 K/mm3 (1.3-6.0)
[2017-07-23 06:15] LABS: Albumin * 1.5 gm/dl (3.4-5.0); Anion Gap 12.6 mmol/L (6.8-13.8); BUN/Creatinine Ratio 17.2 (9.0-21.6); Bilirubin, Total 0.2 mg/dL (0.0-1.1); Ca. Corrected For Albumin 9.1 mg/dL (8.4-10.2); Calcium * 7.4 mg/dL (7.9-10.9); Carbon Dioxide 23.3 mmol/L (24-32.6); Dohle Bodies 1+; Hypochromia Trace; Microcytosis 2+; Platelet Estimate Normal (NORMAL); Potassium 4.9 mmol/L (3.4-4.6); Target Cells Trace; Total Protein 5.7 gm/dL (6.2-8.2)
[2017-07-23] MEDS: INSULIN LISPRO 100 UNITS/ML VIAL SC SCH ×3 (06:48→17:06)
[2017-07-23] MEDS: LEVOTHYROXINE SODIUM 75 MCG TABLET PO SCH (06:49)
[2017-07-23] MEDS: HYDROPHILIC OINTMENT 454 APPL JAR TP SCH ×2 (08:37→22:46)
[2017-07-23] MEDS: INSULIN GLARGINE,HUM.REC.ANLOG 100 UNITS/ML VIAL SC SCH (08:37)
[2017-07-23] MEDS: ASPIRIN 81 MG TABLET.DR PO SCH (08:37)
[2017-07-23] MEDS: NYSTATIN 15 APPL BTL TP SCH ×2 (08:38→22:47)
[2017-07-23] MEDS: LISINOPRIL 10 MG TABLET PO SCH ×2 (08:38→22:49)
[2017-07-23] MEDS: ATENOLOL 50 MG TABLET PO SCH (08:38)
[2017-07-23] MEDS: ENOXAPARIN SODIUM 30 MG/0.3 ML SYRG SC SCH (10:35)
[2017-07-23] MEDS: POTASSIUM CHLORIDE 20 MEQ in 0.5 NORMAL SALINE 1,000 ML IV SCH (10:58)
--- NOTE | 2017-07-23 12:07 | PN ---
Subjective - Date and Time Seen Date: 07/22/17 Time: 12:07 Subjective Narrative: Patient sitting in chair. C/O pain in her lower extremities when moved. Undergoing PT/OT. Able to walk about 4-5 steps. Objective - Review of Systems Respiratory: Denies: Cough, Shortness of Breath Cardiac: Reports: Edema - Vitals Vitals: Vital Signs 07/22/17 07:30 Temperature 36.5 C Pulse Rate 69 Resp Rate. 16 Blood Pressure 150/67 O2 Sat 94% RA This - Exam Constitutional: Present: Elderly - Alert, confused, no acute distress. ENT Exam: Present: hearing grossly normal Neck: Present: supple, trachea midline Respiratory: Present: no accessory muscle use, decreased breath sounds, crackles - bilaterally Cardiovascular/Chest: Present: regular rate, rhythm, systolic murmur Abdomen: Present: Normal bowel sounds, soft, nontender Extremity: Present: other - 1+ edema present; redness and erythema present. One -inch black eschar present on right heel, painful and tender. Other ulcers present on both lower extremities in various stages of healing. Skin Exam: Present: warm/dry, pallor Cauti Physician Documentation - Urinary Catheter Management Urethral (June) Date of Insertion: 07/22/17 Time of Insertion: 06:42 Date of Removal: 07/20/17 Time of Removal: 17:35 Assessment/Plan - Problems/Diagnosis (1) Cellulitis Problem: Acute Qualifiers: Site of cellulitis: extremity Site of cellulitis of extremity: lower extremity Laterality: right Qualified Code(s): L03.115 - Cellulitis of right lower limb Narrative: lower extremities: On CTX IV, vancomycin IV and metronidazole IV. (2) Acute exacerbation of CHF (congestive heart failure) Problem: Acute Qualifiers: Congestive heart failure type: combined Qualified Code(s): I50.43 - Acute on chronic combined systolic (congestive) and diastolic (congestive) heart failure Narrative: Check labs on 07/23/17. Currently patient not requiring O2 and in no respiratory distress. EF approximately 40% on echo done on 06/2017. (3) Dehydration Problem: Acute Narrative: Getting IV fluids at 50 mL an hour. (4) Anemia Problem: Acute Narrative: Obtain serum iron/TIBC and B12 levels in a.m.
[2017-07-23] MEDS: VANCOMYCIN HCL 750 MG in NORMAL SALINE 250 ML IV SCH (15:01)
--- NOTE | 2017-07-23 15:19 | PN ---
Subjective - Date and Time Seen Date: 07/23/17 Objective - Review of Systems Generalized/Overall Review: Denies: Weakness Respiratory: Denies: Cough, Shortness of Breath Cardiac: Reports: Edema Musculoskeletal Complaints: Reports: Other - pain in lower extremities. - Vitals Vitals: Last Vital Signs Temp 36.8 C 07/23/17 11:02 Pulse 73 07/23/17 13:12 Resp 20 07/23/17 13:12 BP 149/78 07/23/17 11:02 Pulse Ox 97 07/23/17 13:02 - Abnormal Lab Findings Abnormal Lab Findings: Laboratory Tests 07/23/17 05:51 WBC 4.9 Hgb 8.4 L Hct 26.5 L Plt Count 319 07/23/17 05:51 Plasma Sodium 140 Potassium 4.9 H D Chloride 108 H Carbon Dioxide 23.3 L BUN 28 H Creatinine 1.63 H D Est GFR (Non-Af Amer) 33 L D Random Glucose 165 H Calcium Adj for Albumin 9.1 Total Bilirubin 0.2 AST 36 ALT 18 L Alkaline Phosphatase 61 B-Natriuretic Peptide 93132 H Total Protein 5.7 L Albumin 1.5 L - Exam Constitutional: Present: Elderly - alert, chronically ill looking, in NAD. ENT Exam: Present: hearing grossly normal, moist mucous membranes Respiratory: Present: no accessory muscle use, crackles - in both lungs. Cardiovascular/Chest: Present: regular rate, rhythm, systolic murmur. Absent: tachycardia Abdomen: Present: Normal bowel sounds, soft, nontender, nondistended Extremity: Present: other - 1+ edema, redness imroving, 1 inch eschar present on the right heel. Eye contact: Present: cooperative, normal speech Cauti Physician Documentation - Urinary Catheter Management Urethral (June) Date of Insertion: 07/22/17 Time of Insertion: 06:42 Date of Removal: 07/20/17 Time of Removal: 17:35 Assessment/Plan Plan Narrative: 1. Cellulitis of lower extremities: On CTX IV daily vancomycin IV daily and metronidazole IV daily. Start multivitamin and vitamin D daily. Continue PT and OT. 2. CHF with EF of 40% [ Echo 06/2017]. Reviewed medications. D/C atenolol. Start metoprolol ER 25 mg PO BID. continue lisinopril 10 mg twice a day. 3. Anemia: Obtain serum iron/TIBC and B12 levels. - Problems/Diagnosis (1) Cellulitis Problem: Acute Qualifiers: Site of cellulitis: extremity Site of cellulitis of extremity: lower extremity Laterality: right Qualified Code(s): L03.115 - Cellulitis of right lower limb (2) Acute exacerbation of CHF (congestive heart failure) Problem: Acute Qualifiers: Congestive heart failure type: combined Qualified Code(s): I50.43 - Acute on chronic combined systolic (congestive) and diastolic (congestive) heart failure (3) Dehydration Problem: Acute (4) Anemia Problem: Acute
[2017-07-23] MEDS: SACCHAROMYCES BOULARDII 250 MG CAPSULE PO SCH ×2 (16:21→22:47)
[2017-07-23] MEDS: HYDROcodone/ACETAMINOPHEN 1 EACH TABLET PO PRN ×2 (16:21→22:44)
[2017-07-23] MEDS: METOPROLOL SUCCINATE 25 MG TABLET.SA PO SCH (22:48)
[2017-07-23] MEDS: cefTRIAXone SODIUM 1,000 MG in DEXTROSE 5 % IN WATER 50 ML IV SCH ×2 (22:56)
[2017-07-24] MEDS: ALBUTEROL SULFATE/IPRATROPIUM 3 ML NEBU IH SCH ×5 (00:36→18:40)
[2017-07-24] MEDS: metroNIDAZOLE/SODIUM CHLORIDE 500 MG/100 ML BAG IV SCH ×2 (03:08→10:04)
[2017-07-24 06:28] LABS: Iron 30 mcg/dL (35-120); Transferrin Sat. (% Sat.) 23 % (15-55)
[2017-07-24] MEDS: INSULIN LISPRO 100 UNITS/ML VIAL SC SCH ×3 (07:42→17:24)
[2017-07-24] MEDS: LEVOTHYROXINE SODIUM 75 MCG TABLET PO SCH (07:43)
[2017-07-24] MEDS ORDERED: FUROSEMIDE 10 MG/ML VIAL IV ONE (09:59)
[2017-07-24] MEDS: LISINOPRIL 10 MG TABLET PO SCH ×2 (10:02→21:31)
[2017-07-24] MEDS: ASPIRIN 81 MG TABLET.DR PO SCH (10:02)
[2017-07-24] MEDS: HYDROPHILIC OINTMENT 454 APPL JAR TP SCH ×2 (10:02→21:30)
[2017-07-24] MEDS: METOPROLOL SUCCINATE 25 MG TABLET.SA PO SCH ×2 (10:03→21:31)
[2017-07-24] MEDS: NYSTATIN 15 APPL BTL TP SCH ×2 (10:03→21:31)
[2017-07-24] MEDS: INSULIN GLARGINE,HUM.REC.ANLOG 100 UNITS/ML VIAL SC SCH (10:12)
[2017-07-24] MEDS: SACCHAROMYCES BOULARDII 250 MG CAPSULE PO SCH ×2 (10:19→21:31)
--- NOTE | 2017-07-24 11:25 | PN ---
Subjective - Date and Time Seen Date: 07/24/17 Time: 11:21 Subjective Narrative: She is not short of breath she is having some leg pain Objective - Review of Systems Generalized/Overall Review: Reports: Weakness EENTM: Reports: No Symptoms Reported Respiratory: Reports: No Symptoms Reported Cardiac: Reports: No Symptoms Reported Abdominal: Reports: No Symptoms Reported Genitourinary Symptoms: Reports: Incontinent - Vitals Vitals: Last Vital Signs Temp 36.8 C 07/24/17 07:36 Pulse 82 07/24/17 10:18 Resp 18 07/24/17 07:36 BP 152/68 07/24/17 10:18 Pulse Ox 94 07/24/17 07:36 - Abnormal Lab Findings Abnormal Lab Findings: Abnormal Lab Results 07/24/17 Range/Units 05:33 Iron 30 L (35-120) mcg/dL TIBC 129 L (260-445) mcg/dL - Exam Constitutional: Present: Alert, Cooperative, No distress Respiratory: Present: rales Cardiovascular/Chest: Present: regular rate, rhythm Abdomen: Present: soft, nontender Extremity: Present: other - Right heel nonstageable pressure ulcer Cauti Physician Documentation - Urinary Catheter Management Urethral (June) Date of Insertion: 07/22/17 Time of Insertion: 06:42 Date of Removal: 07/20/17 Time of Removal: 17:35 Assessment/Plan - Problems/Diagnosis (1) Cellulitis Problem: Acute Qualifiers: Site of cellulitis of extremity: lower extremity (2) Dehydration Problem: Resolved (3) Pneumonia Problem: Acute Qualifiers: Pneumonia type: due to unspecified organism Laterality: bilateral Lung location: unspecified part of lung Qualified Code(s): J18.9 - Pneumonia, unspecified organism (4) Acute exacerbation of CHF (congestive heart failure) Problem: Acute Qualifiers: Congestive heart failure type: combined Qualified Code(s): I50.43 - Acute on chronic combined systolic (congestive) and diastolic (congestive) heart failure Narrative: have been gaing weight and increasing BNP CXR showing worsening of CHF will give IV lasix
[2017-07-24] MEDS: CHOLECALCIFEROL 1,000 UNIT CAPSULE PO SCH (12:02)
[2017-07-24] MEDS: MULTIVITAMIN/IRON/FOLIC ACID 1 TAB TABLET PO SCH (12:02)
[2017-07-24] MEDS: ENOXAPARIN SODIUM 30 MG/0.3 ML SYRG SC SCH (12:02)
[2017-07-25] MEDS: ALBUTEROL SULFATE/IPRATROPIUM 3 ML NEBU IH SCH ×4 (01:11→18:28)
[2017-07-25 06:01] LABS: Hematocrit 26.8 % (37.0-47.0); Hemoglobin 8.4 gm/dL (12.5-16.0); Mean Cell Volume 76.8 fl (78-100); Mean Corpuscular Hemoglobin 24.1 pg (27-31); Mean Corpuscular Hgb Conc 31.3 g/dl (32-36); Mean Platelet Volume 10.7 fl (6.0-9.5); Neutrophil # 2.2 K/mm3 (1.3-6.0); Neutrophil % 48.1 % (42-75.0); Platelet Count 428 K/mm3 (150-450); Red Blood Count 3.49 M/mm3 (4.2-5.4); Red Cell Distribution Width 17.5 % (11.5-14.0); White Blood Count 4.6 K/mm3 (4.0-10.5)
[2017-07-25 06:31] LABS: Albumin * 1.7 gm/dl (3.4-5.0); BUN/Creatinine Ratio 11.7 (9.0-21.6); Bilirubin, Total 0.3 mg/dL (0.0-1.1); Ca. Corrected For Albumin 9.5 mg/dL (8.4-10.2); Carbon Dioxide 26.7 mmol/L (24-32.6); Potassium 4.7 mmol/L (3.4-4.6)
[2017-07-25] MEDS: LEVOTHYROXINE SODIUM 75 MCG TABLET PO SCH (08:05)
[2017-07-25] MEDS ORDERED: FUROSEMIDE 10 MG/ML VIAL IV ONE (08:33)
--- NOTE | 2017-07-25 08:39 | PN ---
Subjective - Date and Time Seen Date: 07/25/17 Time: 08:35 Subjective Narrative: Breathing better more alert eating better; able to walk with help Objective - Review of Systems Generalized/Overall Review: Reports: Weakness EENTM: Reports: No Symptoms Reported Respiratory: Reports: No Symptoms Reported Cardiac: Reports: No Symptoms Reported Abdominal: Reports: No Symptoms Reported Genitourinary Symptoms: Reports: Incontinent - Vitals Vitals: Last Vital Signs Temp 36.3 C L 07/25/17 07:23 Pulse 76 07/25/17 07:23 Resp 16 07/25/17 07:23 BP 158/83 07/25/17 07:23 Pulse Ox 94 07/25/17 07:23 - Abnormal Lab Findings Abnormal Lab Findings: Abnormal Lab Results 07/25/17 07/25/17 Range/Units 05:51 05:51 RBC 3.49 L (4.2-5.4) M/mm3 Hgb 8.4 L (12.5-16.0) gm/dL Hct 26.8 L (37.0-47.0) % MCV 76.8 L (78-100) fl MCH 24.1 L (27-31) pg MCHC 31.3 L (32-36) g/dl RDW 17.5 H (11.5-14.0) % MPV 10.7 H (6.0-9.5) fl Immature Gran % (Auto) 0.90 H (0.001-0.429) % Immature Gran # (Auto) 0.04 H (0.000-0.0310) K/mm3 Monocytes % 14.8 H (0.0-9) % Eosinophils % 7.2 H (0.0-3.0) % Basophils % 1.1 H (0.0-1.0) % Lymphocytes # 1.28 L (1.5-3.5) k/mm3 Potassium 4.7 H (3.4-4.6) mmol/L Chloride 109 H (97-106) mmol/L Creatinine 1.79 H (0.4-1.4) mg/dL Est GFR (Non-Af Amer) 30 L (60-130) mL/min Random Glucose 166 H (70-110) mg/dL ALT 16 L (19-67) U/L B-Natriuretic Peptide 54665 H (5-325) pg/mL Total Protein 6.0 L (6.2-8.2) gm/dL Albumin 1.7 L (3.4-5.0) gm/dl - Exam Constitutional: Present: Alert, Cooperative, No distress Respiratory: Present: no respiratory distress, rales Cardiovascular/Chest: Present: regular rate, rhythm Abdomen: Present: soft, nontender Extremity: Present: no pedal edema, leg pain Cauti Physician Documentation - Urinary Catheter Management Urethral (June) Date of Insertion: 07/22/17 Time of Insertion: 06:42 Date of Removal: 07/20/17 Time of Removal: 17:35 Assessment/Plan - Problems/Diagnosis (1) Cellulitis Problem: Chronic Qualifiers: Site of cellulitis of extremity: lower extremity (2) Dehydration Problem: Resolved (3) Pneumonia Problem: Resolved Qualifiers: Pneumonia type: due to unspecified organism Laterality: bilateral Lung location: unspecified part of lung Qualified Code(s): J18.9 - Pneumonia, unspecified organism (4) Acute exacerbation of CHF (congestive heart failure) Problem: Acute Qualifiers: Congestive heart failure type: combined Qualified Code(s): I50.43 - Acute on chronic combined systolic (congestive) and diastolic (congestive) heart failure Narrative: Pro-calcitonin was very high now down to normal antibiotics were discontinued Chest x-ray showed worsening of CHF and BNP went up to the 12,000 indicating worsening up CHF She had a good urine output with IV Lasix We will continue to give IV Lasix on day-to-day basis and will add Aldactone
[2017-07-25] MEDS ORDERED: FUROSEMIDE 40 MG, FUROSEMIDE 20 MG IV ONE ×2 (08:45)
[2017-07-25] MEDS: INSULIN LISPRO 100 UNITS/ML VIAL SC SCH ×3 (08:51→16:45)
[2017-07-25] MEDS: SPIRONOLACTONE 25 MG TABLET PO SCH ×2 (08:52→09:12)
[2017-07-25] MEDS: SACCHAROMYCES BOULARDII 250 MG CAPSULE PO SCH ×2 (08:53→20:44)
[2017-07-25] MEDS: ASPIRIN 81 MG TABLET.DR PO SCH (08:54)
[2017-07-25] MEDS: METOPROLOL SUCCINATE 25 MG TABLET.SA PO SCH ×2 (08:54→20:44)
[2017-07-25] MEDS: LISINOPRIL 10 MG TABLET PO SCH ×2 (08:54→20:44)
[2017-07-25] MEDS: INSULIN GLARGINE,HUM.REC.ANLOG 100 UNITS/ML VIAL SC SCH (08:55)
[2017-07-25] MEDS: NYSTATIN 15 APPL BTL TP SCH ×2 (08:55→20:46)
[2017-07-25] MEDS: HYDROPHILIC OINTMENT 454 APPL JAR TP SCH ×2 (08:55→20:43)
[2017-07-25] MEDS: ENOXAPARIN SODIUM 30 MG/0.3 ML SYRG SC SCH (11:38)
[2017-07-25] MEDS: MULTIVITAMIN/IRON/FOLIC ACID 1 TAB TABLET PO SCH (11:39)
[2017-07-25] MEDS: CHOLECALCIFEROL 1,000 UNIT CAPSULE PO SCH (11:39)
[2017-07-25] MEDS: HYDROcodone/ACETAMINOPHEN 1 EACH TABLET PO PRN (14:18)
[2017-07-26] MEDS: ALBUTEROL SULFATE/IPRATROPIUM 3 ML NEBU IH SCH ×4 (00:11→18:27)
[2017-07-26 06:02] LABS: Hematocrit 26.2 % (37.0-47.0); Hemoglobin 8.2 gm/dL (12.5-16.0); Mean Cell Volume 77.3 fl (78-100); Mean Corpuscular Hemoglobin 24.2 pg (27-31); Mean Corpuscular Hgb Conc 31.3 g/dl (32-36); Neutrophil % 42.4 % (42-75.0); Platelet Count 462 K/mm3 (150-450); Red Blood Count 3.39 M/mm3 (4.2-5.4); Red Cell Distribution Width 17.7 % (11.5-14.0); White Blood Count 4.8 K/mm3 (4.0-10.5)
[2017-07-26 06:24] LABS: Albumin * 1.8 gm/dl (3.4-5.0); Anion Gap 10.8 mmol/L (6.8-13.8); BUN/Creatinine Ratio 14.7 (9.0-21.6); Bilirubin, Total 0.3 mg/dL (0.0-1.1); Ca. Corrected For Albumin 9.6 mg/dL (8.4-10.2); Calcium * 8.2 mg/dL (7.9-10.9); Carbon Dioxide 26.9 mmol/L (24-32.6); Potassium 4.7 mmol/L (3.4-4.6); Total Protein 6.2 gm/dL (6.2-8.2)
[2017-07-26] MEDS: INSULIN LISPRO 100 UNITS/ML VIAL SC SCH ×3 (07:32→17:43)
[2017-07-26] MEDS: LEVOTHYROXINE SODIUM 75 MCG TABLET PO SCH (07:38)
[2017-07-26] MEDS ORDERED: METOLAZONE 5 MG TABLET PO ONE (08:47)
[2017-07-26] MEDS ORDERED: FUROSEMIDE 10 MG/ML VIAL IV ONE (08:47)
[2017-07-26] MEDS ORDERED: FUROSEMIDE 40 MG TABLET PO SCH (09:00)
[2017-07-26] MEDS: SACCHAROMYCES BOULARDII 250 MG CAPSULE PO SCH ×2 (09:19→21:39)
[2017-07-26] MEDS: LISINOPRIL 10 MG TABLET PO SCH ×2 (09:19→21:40)
[2017-07-26] MEDS: METOPROLOL SUCCINATE 25 MG TABLET.SA PO SCH ×2 (09:20→21:40)
[2017-07-26] MEDS: ASPIRIN 81 MG TABLET.DR PO SCH (09:20)
[2017-07-26] MEDS: SPIRONOLACTONE 25 MG TABLET PO SCH (09:21)
[2017-07-26] MEDS: INSULIN GLARGINE,HUM.REC.ANLOG 100 UNITS/ML VIAL SC SCH (09:21)
[2017-07-26] MEDS: NYSTATIN 15 APPL BTL TP SCH ×2 (09:22→21:41)
[2017-07-26] MEDS: HYDROPHILIC OINTMENT 454 APPL JAR TP SCH ×2 (09:22→21:39)
[2017-07-26] MEDS: IRON SUCROSE COMPLEX 100 MG in NORMAL SALINE 100 ML IV SCH (09:55)
--- NOTE | 2017-07-26 09:57 | PN ---
Subjective - Date and Time Seen Date: 07/26/17 Time: 09:53 Subjective Narrative: She is not short of breath and not coughing Objective - Review of Systems Generalized/Overall Review: Reports: Weakness Respiratory: Reports: No Symptoms Reported Cardiac: Reports: No Symptoms Reported Abdominal: Reports: No Symptoms Reported Genitourinary Symptoms: Reports: Incontinent, Retention Neurological: Reports: No Symptoms Reported - Vitals Vitals: Last Vital Signs Temp 36.9 C 07/26/17 07:07 Pulse 77 07/26/17 09:34 Resp 18 07/26/17 07:07 BP 133/65 07/26/17 09:34 Pulse Ox 94 07/26/17 07:07 - Abnormal Lab Findings Abnormal Lab Findings: Abnormal Lab Results 07/26/17 07/26/17 Range/Units 05:58 05:58 RBC 3.39 L (4.2-5.4) M/mm3 Hgb 8.2 L (12.5-16.0) gm/dL Hct 26.2 L (37.0-47.0) % MCV 77.3 L (78-100) fl MCH 24.2 L (27-31) pg MCHC 31.3 L (32-36) g/dl RDW 17.7 H (11.5-14.0) % Plt Count 462 H (150-450) K/mm3 MPV 10.0 H (6.0-9.5) fl Immature Gran % (Auto) 0.80 H (0.001-0.429) % Immature Gran # (Auto) 0.04 H (0.000-0.0310) K/mm3 Monocytes % 15.3 H (0.0-9) % Eosinophils % 5.3 H (0.0-3.0) % Basophils % 1.5 H (0.0-1.0) % Potassium 4.7 H (3.4-4.6) mmol/L Chloride 107 H (97-106) mmol/L BUN 28 H (3-23) mg/dL Creatinine 1.90 H (0.4-1.4) mg/dL Est GFR (Non-Af Amer) 28 L (60-130) mL/min Random Glucose 125 H (70-110) mg/dL ALT 14 L (19-67) U/L B-Natriuretic Peptide 25613 H (5-325) pg/mL Albumin 1.8 L (3.4-5.0) gm/dl - Exam Constitutional: Present: Alert, Cooperative, No distress, Elderly Respiratory: Present: rales Cardiovascular/Chest: Present: regular rate, rhythm Abdomen: Present: soft, nontender Extremity: Present: no pedal edema Cauti Physician Documentation - Urinary Catheter Management Urethral (June) Date of Insertion: 07/22/17 Time of Insertion: 06:42 Date of Removal: 07/20/17 Time of Removal: 17:35 Assessment/Plan - Problems/Diagnosis (1) Cellulitis Problem: Chronic Qualifiers: Site of cellulitis of extremity: lower extremity (2) Dehydration Problem: Resolved (3) Pneumonia Problem: Resolved Qualifiers: Pneumonia type: due to unspecified organism Laterality: bilateral Lung location: unspecified part of lung Qualified Code(s): J18.9 - Pneumonia, unspecified organism (4) Acute exacerbation of CHF (congestive heart failure) Problem: Acute Qualifiers: Congestive heart failure type: combined Qualified Code(s): I50.43 - Acute on chronic combined systolic (congestive) and diastolic (congestive) heart failure Narrative: Chest x-ray showed improving CHF BNP is still very high but gradually improving Will give more IV diuretic Possible discharge tomorrow
[2017-07-26] MEDS: CHOLECALCIFEROL 1,000 UNIT CAPSULE PO SCH (11:55)
[2017-07-26] MEDS: MULTIVITAMIN/IRON/FOLIC ACID 1 TAB TABLET PO SCH (11:55)
[2017-07-26] MEDS: ENOXAPARIN SODIUM 30 MG/0.3 ML SYRG SC SCH (11:55)
[2017-07-27] MEDS: ALBUTEROL SULFATE/IPRATROPIUM 3 ML NEBU IH SCH ×2 (02:01→06:09)
[2017-07-27] MEDS: HYDROcodone/ACETAMINOPHEN 1 EACH TABLET PO PRN (04:42)
[2017-07-27 05:56] LABS: Hematocrit 27.1 % (37.0-47.0); Hemoglobin 8.4 gm/dL (12.5-16.0); Mean Cell Volume 77.4 fl (78-100); Mean Platelet Volume 9.9 fl (6.0-9.5); Neutrophil # 2.4 K/mm3 (1.3-6.0); Neutrophil % 46.4 % (42-75.0); Platelet Count 476 K/mm3 (150-450); Red Cell Distribution Width 18.3 % (11.5-14.0); White Blood Count 5.1 K/mm3 (4.0-10.5)
[2017-07-27 06:19] LABS: Anion Gap 9.9 mmol/L (6.8-13.8); BUN/Creatinine Ratio 14.4 (9.0-21.6); Ca. Corrected For Albumin 9.8 mg/dL (8.4-10.2); Carbon Dioxide 30.6 mmol/L (24-32.6); Potassium 4.5 mmol/L (3.4-4.6)
[2017-07-27 06:20] LABS: Bilirubin, Total 0.3 mg/dL (0.0-1.1); Calcium * 8.5 mg/dL (7.9-10.9); Total Protein 6.6 gm/dL (6.2-8.2)
[2017-07-27] MEDS: INSULIN LISPRO 100 UNITS/ML VIAL SC SCH ×2 (06:30→11:38)
[2017-07-27] MEDS: LEVOTHYROXINE SODIUM 75 MCG TABLET PO SCH (06:31)
--- NOTE | 2017-07-27 08:04 | DS ---
(1) Cellulitis Problem: Chronic Qualifiers: Site of cellulitis of extremity: lower extremity (2) Dehydration Problem: Resolved (3) Pneumonia Problem: Resolved Qualifiers: Pneumonia type: due to unspecified organism Laterality: bilateral Lung location: unspecified part of lung Qualified Code(s): J18.9 - Pneumonia, unspecified organism (4) Acute exacerbation of CHF (congestive heart failure) Problem: Acute Qualifiers: Congestive heart failure type: combined Qualified Code(s): I50.43 - Acute on chronic combined systolic (congestive) and diastolic (congestive) heart failure Description of Stay: 71-year-old white female chronically ill patient was admitted because of weakness and shortness of breath chest x-ray show pneumonia and congestive heart failure with markedly elevated BNP and markedly elevated pro-calcitonin. All culture was negative. Nasal swab tested positive for MRSA. She was treated with vancomycin and Rocephin and Flagyl IV. She was septic looking with bilateral leg cellulitis and bilateral pneumonia she was initially treated also with some IV Lasix. She became hypotensive and BUN/creatinine went up. She was rehydrated slowly and became more stable she gradually improved with pro -calcitonin down to normal and chest x-ray show improvement of the pneumonic infiltrate but it also showed worsening of the CHF with markedly elevated BNP. I gave more IV Lasix and Aldactone and Zaroxolyn she diuresis well and chest x- ray show marked improvement of the CHF and significant weight loss and urine output. On the day of discharge she is more alert breathing better. She would be referred to urologist because of the urinary retention. She will follow-up with me at the wound clinic in 1 week Procedures Performed: none Discharge Location: Home Disposition: Home self-care Condition: Fair Discharge Activity: Activity as tolerated Discharge Diet: Consistent carbs, Low salt Additional Patient Instructions (free text): -Please make TCM appointment unless skilled nursing discharge. Thank you! Brianna @ [phone]. [facility], please call and fax discharge orders to them. Follow up with Dr. Murillo in one week at the wound clinic Prescriptions (Any new or edited meds): Spironolactone [Aldactone] 25 mg PO DAILY #30 tablet Complete Home Medications List: Complete Home Medication List: Levothyroxine Sodium [Synthroid] 75 mcg PO DAILY@0700 #60 tablet 05/05/16 Insulin Glargine,Hum.rec.anlog [Lantus] 12 units SC DAILY 02/05/17 Lisinopril [Zestril] 10 mg PO BID 05/20/17 Aspirin [Aspirin Enteric Coated] 81 mg PO DAILY tablet. 07/27/17 Multivitamin/Iron/Folic Acid [Certagen] 1 tab PO DAILY@1200 tablet 07/27/17 Saccharomyces Boulardii [Florastor] 250 mg PO BID capsule 07/27/17 Spironolactone [Aldactone] 25 mg PO DAILY #30 tablet 07/27/17
[2017-07-27] MEDS: SPIRONOLACTONE 25 MG TABLET PO SCH (08:45)
[2017-07-27] MEDS: HYDROPHILIC OINTMENT 454 APPL JAR TP SCH (08:45)
[2017-07-27] MEDS: SACCHAROMYCES BOULARDII 250 MG CAPSULE PO SCH (08:46)
[2017-07-27] MEDS: ASPIRIN 81 MG TABLET.DR PO SCH (08:46)
[2017-07-27] MEDS: INSULIN GLARGINE,HUM.REC.ANLOG 100 UNITS/ML VIAL SC SCH (08:46)
[2017-07-27] MEDS: NYSTATIN 15 APPL BTL TP SCH (08:47)
[2017-07-27] MEDS: LISINOPRIL 10 MG TABLET PO SCH (08:47)
[2017-07-27] MEDS: METOPROLOL SUCCINATE 25 MG TABLET.SA PO SCH (08:47)
[2017-07-27] MEDS: IRON SUCROSE COMPLEX 100 MG in NORMAL SALINE 100 ML IV SCH (08:48)
[2017-07-27 11:20] VITALS: BP 127/54
[2017-07-27] MEDS: ENOXAPARIN SODIUM 30 MG/0.3 ML SYRG SC SCH (11:31)
[2017-07-27] MEDS: CHOLECALCIFEROL 1,000 UNIT CAPSULE PO SCH (11:31)
[2017-07-27] MEDS: MULTIVITAMIN/IRON/FOLIC ACID 1 TAB TABLET PO SCH (11:31)
== END 2017-07-27 12:00 | disposition home health service (06) | DRG 291 ==
LOC: ER 20:02 → MS 23:20
PROVIDERS: ADMIT Nurse Practitioner; ATTEND Internal Medicine
PROC: 4A033R1 Measurement of Arterial Saturation, Peripheral, Percutaneous Approach (ICD-10-PCS; principal; 2017-07-16)
PROC: B246ZZZ Ultrasonography of Right and Left Heart (ICD-10-PCS; 2017-07-17)
DX: I50.43 Acute on chronic combined systolic (congestive) and diastolic (congestive) heart failure (principal); J18.9 Pneumonia, unspecified organism; I42.9 Cardiomyopathy, unspecified; L03.115 Cellulitis of right lower limb; L03.116 Cellulitis of left lower limb; L89.510 Pressure ulcer of right ankle, unstageable; E86.0 Dehydration; R33.9 Retention of urine, unspecified; R32 Unspecified urinary incontinence; I10 Essential (primary) hypertension; E03.9 Hypothyroidism, unspecified; E11.9 Type 2 diabetes mellitus without complications; R74.8 Abnormal levels of other serum enzymes; E11.628 Type 2 diabetes mellitus with other skin complications; Z79.84 Long term (current) use of oral hypoglycemic drugs
CPT/HCPCS: 36415; 36600; 70450; 71045; 73630; 80048; 80053; 80202; 81001; 82607; 82803; 83036; 83540; 83550; 83605; 83880; 84145; 84484; 85007; 85025; 85652; 86140; 87040; 87081; 87400; 87449; 93005; 93306; 93923; 94640; 94762; 96361; 96365; 96375; 97110; 97116; 97163; 97530; 99285; J1756

== ENCOUNTER 2018-01-13 09:39 | Inpatient (IN) ==
--- NOTE | 2018-01-13 10:09 | ERNOTE ---
Trauma/Assault HPI - Narrative Date of Service: 01/13/18 - General Stated Complaint: fall/hip injury Time Seen by Provider: 01/13/18 10:05 Source: patient Exam Limitations: dementia - Immun/Allergies/Home Medications Immunizations: IMMUNIZATION HX Immunizations Up to Date Yes History of Influenza Vaccine No Hx Pneumococcal Vaccination No Allergies/Adverse Reactions: Allergies Influenza Virus Vaccines Adverse Reaction (Intermediate, Verified 12/12/17 13:50 ) arm swelling, nausea, abd cramping Home Medications: HOME MEDICATIONS Levothyroxine Sodium [Synthroid] 75 mcg PO DAILY@0700 #60 tab 05/05/16 [Last Taken Unknown] Insulin Glargine,Hum.rec.anlog [Lantus] 12 units SC DAILY 02/05/17 [Last Taken Unknown] Aspirin [Aspirin Enteric Coated] 81 mg PO DAILY tablet. 07/27/17 [Last Taken Unknown] Metoprolol Succinate [Toprol Xl] 50 mg PO DAILY #30 tab 07/27/17 [Last Taken Unknown] Multivitamin/Iron/Folic Acid [Certagen] 1 tab PO DAILY@1200 tab 07/27/17 [Last Taken Unknown] blood sugar diagnostic strips See Dose Instructions .ROUTE .MEDSUPPLY #20 ea [Last Taken Unknown] citalopram 10 mg tablet 10 mg PO DAILY 12/07/17 [Last Taken Unknown] furosemide 40 mg tablet 80 mg PO DAILY tab 12/07/17 [Last Taken Unknown] insulin syringe with safety needle 1 mL 31 gauge x 5/16" See Dose Instructions .ROUTE .MEDSUPPLY #100 ea 12/07/17 [Last Taken Unknown] lisinopril 10 mg tablet 10 mg PO DAILY 12/07/17 [Last Taken Unknown] - Pain Pain Score #1 Pain Score: 5 - History of Present Illness Narrative: The patient is a 72 year old female who presents for left hip pain which has been present since 0500 this am. There are associated symptoms of left yarsani contusion from striking head during fall. The patient reports pain to left hip, 5/10. There are alleviating factors of rest. There are aggravating factors of movement. Previous treatments have included: none. The past medical history includes: CVA, DM type II, GERD, HTN, osteoarthritis and AFib. The social history is positive for past smoking. The patient has had no ill contacts. Patient presents to ER with son who reports patient was walking outside of her home this am and attempted to go around a small kid pool. Patient lost her step and fell landing primarily to left hip on the grass. Patient did strike her head but son denies LOC. Patient has been ambulatory since fall without difficulty per son. Son also reports that patient has been awake and alert to her normal since fall and striking head. Location Occurred: Reports: home Pain Location: Reports: head, pelvis, other - left hip Method of Injury: Reports: fall Modifying Factors - (Improves): Reports: rest Modifying Factors - (Worsens): Reports: movement Loss of Consciousness: Reports: no loss of consciousness Associated Symptoms - Trauma: Reports: headache. Denies: neck pain, nausea, vomiting Review of Systems - Review of Systems Constitutional: Present: no symptoms reported. Absent: fever, fatigue EYE: Present: no symptoms reported ENT: Present: no symptoms reported. Absent: ear pain, nasal drainage, sore throat Respiratory: Present: no symptoms reported. Absent: shortness of breath, cough Cardiology: Present: no symptoms reported. Absent: chest pain Gastrointestinal/Abdominal: Present: no symptoms reported. Absent: nausea, vomiting, diarrhea Genitourinary: Present: no symptoms reported Musculoskeletal: Present: joint pain - left hip Skin: Present: other - contusion over left yarsani Neurological: Present: headache - left frontal Endocrine: Present: no symptoms reported Hematologic/Lymphatic: Present: no symptoms reported Psych: Present: no symptoms reported All Other Systems: All systems neg except as marked Medical History (Last Updated 01/13/18 @ 09:54 by Duyen Lopez RN) GERD (gastroesophageal reflux disease) (Chronic) Onset Date: ~01/29/12 Diabetes mellitus type 2, controlled, without complications (Chronic) Onset Date: ~1993 History of pneumonia Hx of atrial fibrillation, no current medication HTN (hypertension) Onset Date: Unknown Osteoarthritis involving multiple joints on both sides of body Onset Date: ~ Ankle fracture Onset Date: ~1992 Cerebrovascular disease Onset Date: ~2003 Deficient knowledge of cholecystectomy Onset Date: ~1991 H/O echocardiogram Onset Date: ~07/17/17 Surgical History: Surgical History (Last Reviewed 01/13/18 @ 09:54 by Duyen Lopez RN) Cataract Onset Date: ~2011 H/O lumpectomy Onset Date: Unknown History of tonsillectomy Onset Date: Unknown Family History: Family History (Last Reviewed 01/13/18 @ 09:54 by Duyen Lopez RN) Father No problems noted. Mother Cancer Social History: Preferred Language Tongan Do you have any scientologist or No cultural preference? Smoking Status Never smoker Abuse History No History of abuse Psych History No pertinent hx Alcohol Use none Drug Use none Physical Exam - Physical Exam General Appearance: Present: wd/wn, alert, no apparent distress Head Exam: Present: no tenderness w palpation, contusions - left yarsani Eye Exam: Normal inspection: bilateral, PERRL: bilateral Ears, Nose, Throat: Present: other - pain has poor mouth control from previous CVA Neck: Present: normal inspection, nontender, full range of motion Respiratory: Present: no respiratory distress, normal breath sounds, no accessory muscle use, lungs clear Cardiovascular/Chest: Present: regular rate, rhythm, no murmur, normal peripheral pulses Peripheral Pulses: N=norm/S=strong/W=weak/B=bound/A=absent: Femoral (L): Normal , Dorsalis-pedis (L): Normal Gastrointestinal/Abdominal: Present: normal bowel sounds, nontender, soft, no organomegaly Back Exam: Present: normal inspection, no vertebral tenderness, vertebral tenderness Extremity Exam: Present: no edema, pelvis stable, bony tenderness - over lateral hip proximal femur, extremity edema - right lower extremity 3+ pitting, other - mild shortening no rotation Neurological Exam: Present: alert, normal mood/affect, motor weakness, disoriented to time Skin Exam: Present: normal color, warm/dry ED Progress - Results and Orders Patient's Lab Results:: I have reviewed the patient's lab results. - Vital Signs Patient's Vital Signs:: I have reviewed the patient's vital signs. Vital Signs: Vital Signs 01/13/18 09:54 Temperature 36.8 C Pulse Rate 75 Respiratory Rate 16 Blood Pressure 188/88 H O2 Sat by Pulse Oximetry 98 - EKG EKG: NSR EKG read: Reviewed by me - X-Ray X-Ray #1 X-Ray: chest Interpretation: Reviewed by me X-ray Comments: No acute cardiopulmonary abnormalities. Reviewed with . X-Ray #2 X-Ray: hip Interpretation: Reviewed by me X-ray Comments: Left intertrochanteric fracture mildly displaced X-Ray #3 X-Ray: pelvis Interpretation: Reviewed by me X-ray Comments: No acute osseous abnormality of pelvis. left hip fx seen on dedicated hip film. - CT/Ultrasound CT/Ultrasound Narrative: X-RAY REPORT ~[id number] CT/CT Head W/O *~ Exam Date: 01/13/2018 10:48 Ordering Physician: Yoanna Mcduffie CT Head W/O * Date: 01/13/2018 10:48 AM Clinical Indication: fall, left yarsani contusion. Comparison: Head CT dated 07/16/2017. Technique: 5 mm axial tomographic images were obtained of the head without contrast. These were viewed on brain and bone windows. Individualized dose optimization technique was used for the performed procedure including automated exposure control, adjustment of the mA and/or kV according to patient size and/ or the iterative reconstruction technique. Findings: Mild generalized cerebral and cerebellar volume loss. Mild nonspecific periventricular hypoattenuation, most commonly seen with chronic small vessel ischemic disease. Calcified atherosclerosis of the bilateral cavernous and paraclinoid internal carotid arteries and intracranial vertebral arteries. No intra- or extra-axial mass or fluid collection. No acute hemorrhage. The ventricles are normal in size, shape, and morphology. The dunn-white matter junction is normal. The basilar cisterns are patent. The visualized paranasal sinuses are normal. The visualized portions of the orbits and globes are normal. The mastoid air cells are clear. No aggressive osseous lesion or fracture. Right posterior scalp swelling. Impression: No acute intracranial process. Right posterior scalp swelling. Mild cerebral volume loss. Mild chronic small vessel ischemic disease. Electronically signed by Milli Austin D.O.. - Progress/Reassessment Chief Complaint: Fall Departure Clinical Impression: Intertrochanteric fracture of left hip Qualifiers: Encounter type: initial encounter Fracture type: closed Fracture alignment: displaced Qualified Code(s): S72.142A - Displaced intertrochanteric fracture of left femur, initial encounter for closed fracture - Departure Disposition: Still a patient Condition: Fair Critical Care Time - Critical Care Critical Time Spent:: No
[2018-01-13 11:29] LABS: INR 1.01 INR (0.90-1.10); Partial Thrombolplastin Time 24.3 Seconds (24-32); Prothrombin Time (Patient) 10.1 Seconds (9.0-11.0)
[2018-01-13 11:31] LABS: Albumin * 3.1 gm/dl (3.4-5.0); Anion Gap 16.1 mmol/L (6.8-13.8); BUN/Creatinine Ratio 19.4 (9.0-21.6); Bilirubin, Total 0.3 mg/dL (0.0-1.1); Ca. Corrected For Albumin 8.9 mg/dL (8.4-10.2); Calcium * 8.5 mg/dL (7.9-10.9); Carbon Dioxide 23.4 mmol/L (24-32.6); Potassium 4.5 mmol/L (3.4-4.6)
[2018-01-13 11:32] LABS: Hematocrit 25.4 % (37.0-47.0); Mean Cell Volume 87.3 fl (78-100); Mean Corpuscular Hemoglobin 27.1 pg (27-31); Mean Corpuscular Hgb Conc 31.1 g/dl (32-36); Mean Platelet Volume 11.6 fl (8-12.5); Neutrophil % 65.9 % (42-75.0); Platelet Count 214 K/mm3 (150-450); Red Blood Count 2.91 M/mm3 (4.2-5.4); Red Cell Distribution Width 14.7 % (11.5-14.0); White Blood Count 7.6 K/mm3 (4.0-10.5)
[2018-01-13] MEDS ORDERED: NORMAL SALINE 1,000 ML IV PRN ×2 (11:41→11:56)
[2018-01-13] MEDS ORDERED: MORPHINE SULFATE 10 MG/ML SYRG IV ONE (12:26)
[2018-01-13] MEDS ORDERED: MORPHINE SULFATE 2 MG/ML DISP.SYRIN ONE (12:27)
[2018-01-13] MEDS ORDERED: MORPHINE SULFATE 2 MG/ML DISP.SYRIN IV ONE (12:28)
[2018-01-13 13:05] LABS: Urine Appearance Clear (CLEAR); Urine Bilirubin Negative (NEGATIVE); Urine Color Yellow
[2018-01-13 13:12] LABS: Urine Bacteria None Seen; Urine Blood 50 /ul (NEGATIVE); Urine Ketone Negative (NEGATIVE); Urine Nitrite Negative (NEGATIVE); Urine Protein 30 mg/dL (NEGATIVE); Urine RBC 0-5 /hpf (0-5); Urine Specific Gravity 1.015 SP.GR. (1.005-1.010); Urine Urobilinogen Normal (NORMAL); Urine WBC 0-5 /hpf (0-5)
[2018-01-13] MEDS ORDERED: oxyCODONE HCL/ACETAMINOPHEN 1 TAB TABLET PO PRN (13:46)
[2018-01-13] MEDS ORDERED: ACETAMINOPHEN 325 MG TABLET PO PRN (13:46)
[2018-01-13] MEDS: oxyCODONE HCL/ACETAMINOPHEN 1 TAB TABLET PO PRN ×2 (14:36→18:41)
[2018-01-13] MEDS: INSULIN LISPRO 100 UNITS/ML VIAL SC SCH (18:21)
[2018-01-13] MEDS ORDERED: FUROSEMIDE 10 MG/ML VIAL IV ONE (19:59)
--- NOTE | 2018-01-13 20:43 | HP ---
Chief Complaint - Chief Complaint Date of Service: 01/13/18 Time of Service: 17:55 Chief Complaint: Fall, left hip pain History of Present Illness: The patient presented to the ED after having what sounds to be a mechanical fall at her home in the yard. She is an extremely poor historian at the time of my exam but she was quite sleepy but easily arousable when I saw her. I am unsure what her baseline mental status is and unfortunately, there is no family available at the time of my exam. The patient states she lives at home with her son. She is not able to tell my the circumstances surrounding the fall other than she was in the yard and fell. She denies any light headedness or dizziness before falling. She denies any chest pain, palpitiations or shortness of breath preceding the fall. She states she has both a cane and walker that she is supposed to use when she ambulates and she states she sometimes does use them but she was not using them at the time of her fall. Medical History (Last Updated 01/13/18 @ 09:54 by Duyen Lopez RN) GERD (gastroesophageal reflux disease) (Chronic) Onset Date: ~01/29/12 Diabetes mellitus type 2, controlled, without complications (Chronic) Onset Date: ~1993 History of pneumonia Hx of atrial fibrillation, no current medication HTN (hypertension) Onset Date: Unknown Osteoarthritis involving multiple joints on both sides of body Onset Date: ~ Ankle fracture Onset Date: ~1992 Cerebrovascular disease Onset Date: ~2003 Deficient knowledge of cholecystectomy Onset Date: ~1991 H/O echocardiogram Onset Date: ~07/17/17 Surgical History: Surgical History (Last Reviewed 01/13/18 @ 09:54 by Duyen Lopez RN) Cataract Onset Date: ~2011 H/O lumpectomy Onset Date: Unknown History of tonsillectomy Onset Date: Unknown Family History: Family History (Last Reviewed 01/13/18 @ 09:54 by Duyen Lopez RN) Father No problems noted. 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 Smoking Status Former smoker Have you smoked in the past 12 No months Do you dip or chew tobacco No Abuse History No History of abuse Psych History No pertinent hx Alcohol Use none Drug Use none Review Of Systems (GEN) - Review of Systems Respiratory: Absent: Shortness of Breath Cardiac: Present: Edema. Absent: Chest Pain, Palpitations, Syncope Musculoskeletal: Present: Joint Pain Neurological: Absent: Numbness, Tingling Skin: Present: Other - wounds to lower extremities right>left Misc: All systems neg except as marked Immunizations: IMMUNIZATION HX Immunizations Up to Date Yes History of Influenza Vaccine No Hx Pneumococcal Vaccination No Allergies/Adverse Reactions: Allergies Allergy/AdvReac Type Severity Reaction Status Date / Time Influenza Virus Vaccines AdvReac Intermediate arm Verified 12/12/17 13:50 swelling, nausea, abd cramping Home Medications: HOME MEDICATIONS Levothyroxine Sodium [Synthroid] 75 mcg PO DAILY@0700 #60 tab 05/05/16 [Last Taken Unknown] Insulin Glargine,Hum.rec.anlog [Lantus] 12 units SC DAILY 02/05/17 [Last Taken Unknown] Aspirin [Aspirin Enteric Coated] 81 mg PO DAILY tablet. 07/27/17 [Last Taken Unknown] Metoprolol Succinate [Toprol Xl] 50 mg PO DAILY #30 tab 07/27/17 [Last Taken Unknown] Multivitamin/Iron/Folic Acid [Certagen] 1 tab PO DAILY@1200 tab 07/27/17 [Last Taken Unknown] blood sugar diagnostic strips See Dose Instructions .ROUTE .MEDSUPPLY #20 ea [Last Taken Unknown] citalopram 10 mg tablet 10 mg PO DAILY 12/07/17 [Last Taken Unknown] furosemide 40 mg tablet 80 mg PO DAILY tab 12/07/17 [Last Taken Unknown] insulin syringe with safety needle 1 mL 31 gauge x 5/16" See Dose Instructions .ROUTE .MEDSUPPLY #100 ea 12/07/17 [Last Taken Unknown] lisinopril 10 mg tablet 10 mg PO DAILY 12/07/17 [Last Taken Unknown] Exam - Exam Vital Signs: Vital Signs - Last Taken Temp 36.3 C 01/13/18 18:28 Pulse 75 01/13/18 18:28 Resp 20 01/13/18 18:28 BP 160/77 H 01/13/18 18:28 Pulse Ox 95 01/13/18 18:28 Constitutional: Present: Lethargic - easily arousable but quickly falls back asleep, Other - Patient smells and looks like she has not bathed in a while and she has dirt bulit up in her skin folds on her neck among other locations, Elderly, Looks Older than stated age ENT Exam: Present: dry mucous membranes Respiratory: Present: lungs clear, normal breath sounds, no respiratory distress , no accessory muscle use Cardiovascular/Chest: Present: regular rate, rhythm, other - loud S2, edema - 1 + edema in left lower extremity, marked likely 3+ edema in the right lower extremity but unable to fully evaluate secondary to severe TTP Abdomen: Present: soft, nontender, nondistended Extremity: Present: lower extremity edema Skin Exam: Present: warm/dry, pallor, other - Bilateral lower extremity wounds with open sores secondary to marked edema and weeping with associated erythema; right LE much worse than left LE Neurologic: Present: other - Possibe tardive dyskinesia vs. abnormal oral (mouth , lips and tounge) movements secondary to the patient be edentulous Appearance: Present: disheveled Diagnostic Studies: Abnormal Lab Results 01/13/18 01/13/18 01/13/18 Range/Units 11:11 11:11 12:12 RBC 2.91 L (4.2-5.4) M/mm3 Hgb 8.0 L (12.5-16.0) gm/dL Hct 25.4 L (37.0-47.0) % MCHC 31.1 L (32-36) g/dl RDW 14.7 H (11.5-14.0) % Monocytes % 9.2 H (0.0-9) % Sodium 143 H (132-142) mmol/L Plasma Sodium 144 H (130-142) mmol/L Chloride 108 H (97-106) mmol/L Carbon Dioxide 23.4 L (24-32.6) mmol/L Anion Gap 16.1 H (6.8-13.8) mmol/L BUN 41 H (3-23) mg/dL Creatinine 2.11 H (0.4-1.4) mg/dL Est GFR (Non-Af Amer) 24 L (60-130) mL/min Random Glucose 144 H (70-110) mg/dL Albumin 3.1 L (3.4-5.0) gm/dl Urine Protein (NEGATIVE) mg/dL Urine Blood (NEGATIVE) /ul Crossmatch See Detail 01/13/18 Range/Units 12:22 RBC (4.2-5.4) M/mm3 Hgb (12.5-16.0) gm/dL Hct (37.0-47.0) % MCHC (32-36) g/dl RDW (11.5-14.0) % Monocytes % (0.0-9) % Sodium (132-142) mmol/L Plasma Sodium (130-142) mmol/L Chloride (97-106) mmol/L Carbon Dioxide (24-32.6) mmol/L Anion Gap (6.8-13.8) mmol/L BUN (3-23) mg/dL Creatinine (0.4-1.4) mg/dL Est GFR (Non-Af Amer) (60-130) mL/min Random Glucose (70-110) mg/dL Albumin (3.4-5.0) gm/dl Urine Protein 30 H (NEGATIVE) mg/dL Urine Blood 50 H (NEGATIVE) /ul Crossmatch Laboratory Results WBC 7.6 K/mm3 (4.0-10.5) 01/13/18 11:11 RBC 2.91 M/mm3 (4.2-5.4) L 01/13/18 11:11 Hgb 8.0 gm/dL (12.5-16.0) L 01/13/18 11:11 Hct 25.4 % (37.0-47.0) L 01/13/18 11:11 MCV 87.3 fl (78-100) 01/13/18 11:11 MCH 27.1 pg (27-31) 01/13/18 11:11 MCHC 31.1 g/dl (32-36) L 01/13/18 11:11 RDW 14.7 % (11.5-14.0) H 01/13/18 11:11 Plt Count 214 K/mm3 (150-450) 01/13/18 11:11 MPV 11.6 fl (8-12.5) 01/13/18 11:11 Immature Gran % (Auto) 0.40 % (0.001-0.429) 01/13/18 11:11 Immature Gran # (Auto) 0.03 K/mm3 (0.000-0.0310) 01/13/18 11:11 Neutrophils % 65.9 % (42-75.0) 01/13/18 11:11 Lymphocytes % 22.2 % (20-51) 01/13/18 11:11 Monocytes % 9.2 % (0.0-9) H 01/13/18 11:11 Eosinophils % 1.8 % (0.0-3.0) 01/13/18 11:11 Basophils % 0.5 % (0.0-1.0) 01/13/18 11:11 Nucleated RBC % 0.0 k/mm3 (0-1) 01/13/18 11:11 Neutrophils # 5.0 K/mm3 (1.3-6.0) 01/13/18 11:11 Lymphocytes # 1.69 k/mm3 (1.5-3.5) 01/13/18 11:11 Monocytes # 0.7 k/mm3 (0.0-1.0) 01/13/18 11:11 Eosinophils # 0.1 k/mm3 (0.0-0.7) 01/13/18 11:11 Absolute Basophils 0.0 k/mm3 (0.0-0.1) 01/13/18 11:11 PT 10.1 Seconds (9.0-11.0) 01/13/18 11:11 INR (Anticoag Therapy) 1.01 INR (0.90-1.10) 01/13/18 11:11 PTT ([place]) 24.3 Seconds (24-32) 01/13/18 11:11 Sodium 143 mmol/L (132-142) H 01/13/18 11:11 Plasma Sodium 144 mmol/L (130-142) H 01/13/18 11:11 Potassium 4.5 mmol/L (3.4-4.6) 01/13/18 11:11 Chloride 108 mmol/L (97-106) H 01/13/18 11:11 Carbon Dioxide 23.4 mmol/L (24-32.6) L 01/13/18 11:11 Anion Gap 16.1 mmol/L (6.8-13.8) H 01/13/18 11:11 BUN 41 mg/dL (3-23) H 01/13/18 11:11 Creatinine 2.11 mg/dL (0.4-1.4) H 01/13/18 11:11 Est GFR (Non-Af Amer) 24 mL/min (60-130) L 01/13/18 11:11 BUN/Creatinine Ratio 19.4 (9.0-21.6) 01/13/18 11:11 Random Glucose 144 mg/dL (70-110) H 01/13/18 11:11 Calcium 8.5 mg/dL (7.9-10.9) 01/13/18 11:11 Calcium Adj for Albumin 8.9 mg/dL (8.4-10.2) 01/13/18 11:11 Total Bilirubin 0.3 mg/dL (0.0-1.1) 01/13/18 11:11 AST 18 U/L (0-48) 01/13/18 11:11 ALT 21 U/L (19-67) 01/13/18 11:11 Alkaline Phosphatase 112 U/L (50-170) 01/13/18 11:11 Total Protein 7.0 gm/dL (6.2-8.2) 01/13/18 11:11 Albumin 3.1 gm/dl (3.4-5.0) L 01/13/18 11:11 Urine Color Yellow 01/13/18 12:22 Urine Appearance Clear (CLEAR) 01/13/18 12:22 Urine pH 7.0 pH (5.0-7.0) 01/13/18 12:22 Ur Specific [place] 1.015 SP.GR. (1.005-1.010) 01/13/18 12:22 Urine Protein 30 mg/dL (NEGATIVE) H 01/13/18 12:22 Urine Glucose (UA) Negative mg/dL (NEGATIVE) 01/13/18 12:22 Urine Ketones Negative mg/dL (NEGATIVE) 01/13/18 12:22 Urine Blood 50 /ul (NEGATIVE) H 01/13/18 12:22 Urine Nitrate Negative (NEGATIVE) 01/13/18 12:22 Urine Bilirubin Negative mg/dl (NEGATIVE) 01/13/18 12:22 Prot Sulfosalicylic Acd 1+ mg/dL (0) 01/13/18 12:22 Urine Urobilinogen Normal EU/dl (NORMAL) 01/13/18 12:22 Ur Leukocyte Esterase Negative /ul (NEGATIVE) 01/13/18 12:22 Urine RBC 0-5 /hpf (0-5) 01/13/18 12:22 Urine WBC 0-5 /hpf (0-5) 01/13/18 12:22 Ur Epithelial Cells None seen /hpf (0-5) 01/13/18 12:22 Urine Bacteria None seen (NONE) 01/13/18 12:22 Urine Culture Comments No culture indicated 01/13/18 12:22 Blood Type A Positive 01/13/18 12:12 Antibody Screen Negative 01/13/18 12:12 Crossmatch See Detail 01/13/18 12:12 Assessment/Plan - Narrative Narrative: Patient found to have an "acute, mildly displaced and minimally impacted left subcapital femoral neck fracture." Per Carlos Soler, the likely plan is for a theresa-arthroplasty tomorrow (01/14/2018) afternoon. Patient at elevated risk given pre-operative comorbidities so we will transfuse 2 units PRBCs. Right lower extremity significantly more swollen and edematous and it is difficult to fully assess her leg secondary to the patient's severe TTP so we will get a right LE venous US to make sure the patient does not have a DVT. Recheck labs in AM. Repeat CXR and EKG in AM to reassess preoperative risk. I will plan to complete a preoperative evaluation tomorrow prior to surgery after reviewing her AM labs, EKG and CXR. NPO after midnight. Pain medications as needed with goal to keep patient comfortable but not over sedated. Wound care team consulted for patient's lower extremity wounds. Appreciate their assistance in the care of this patient. Consistent carb diet until midnight and then following surgery. Monitor BG ACHS and PRN. Continue home Lantus. Medium dose SSI. Start VTE ppx per ortho's recommendations following surgery. PT/OT evaluation and treatment following surgery. Encourage IS. It is quite likely the patient will need SNF placement at discharge. Case workers will discuss further with the patient and her son tomorrow. - Assessment/Plan (1) Intertrochanteric fracture of left hip Problem: Acute Qualifiers: Encounter type: initial encounter Fracture type: closed Fracture alignment: displaced Qualified Code(s): S72.142A - Displaced intertrochanteric fracture of left femur, initial encounter for closed fracture (2) Fall at home Problem: Acute (3) Wound of lower extremity Problem: Chronic Qualifiers: Laterality: right (4) Hypothyroidism Problem: Chronic Qualifiers: (5) PAD (peripheral artery disease) Problem: Chronic (6) CHF (congestive heart failure) Problem: Chronic Qualifiers: Heart failure type: combined systolic and diastolic Heart failure chronicity: chronic Qualified Code(s): I50.42 - Chronic combined systolic ( congestive) and diastolic (congestive) heart failure (7) HTN (hypertension) Problem: Chronic Qualifiers: Hypertension type: essential hypertension Qualified Code(s): I10 - Essential (primary) hypertension (8) CVA (cerebral vascular accident) Problem: Chronic (9) T2DM (type 2 diabetes mellitus) Problem: Chronic Qualifiers: 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
[2018-01-13] MEDS: NYSTATIN 15 APPL BTL TP SCH (20:54)
[2018-01-14] MEDS: oxyCODONE HCL/ACETAMINOPHEN 1 TAB TABLET PO PRN (00:38)
[2018-01-14 04:10] LABS: Hematocrit 32.5 % (37.0-47.0); Hemoglobin 10.5 gm/dL (12.5-16.0)
[2018-01-14 05:25] LABS: Hematocrit 36.2 % (37.0-47.0); Hemoglobin 11.4 gm/dL (12.5-16.0); Mean Cell Volume 87.4 fl (78-100); Mean Corpuscular Hemoglobin 27.5 pg (27-31); Mean Corpuscular Hgb Conc 31.5 g/dl (32-36); Mean Platelet Volume 11.4 fl (8-12.5); Platelet Count 188 K/mm3 (150-450); Red Blood Count 4.14 M/mm3 (4.2-5.4); Red Cell Distribution Width 14.6 % (11.5-14.0)
[2018-01-14 06:14] LABS: Anion Gap 12.9 mmol/L (6.8-13.8); BUN/Creatinine Ratio 17.7 (9.0-21.6); Calcium * 8.3 mg/dL (7.9-10.9); Carbon Dioxide 27.1 mmol/L (24-32.6); Estimated Creat Clear 14.7
[2018-01-14] MEDS: LEVOTHYROXINE SODIUM 75 MCG TABLET PO SCH (06:23)
[2018-01-14] MEDS: INSULIN LISPRO 100 UNITS/ML VIAL SC SCH ×3 (06:23→16:48)
[2018-01-14] MEDS ORDERED: MORPHINE SULFATE 2 MG/ML DISP.SYRIN IV PRN (06:31)
[2018-01-14] MEDS: NYSTATIN 15 APPL BTL TP SCH ×2 (08:15→22:23)
--- NOTE | 2018-01-14 08:47 | ANES ---
Anesthesia Pre Procedure Eval Vitals/Labs: Last Vital Signs Temp 36.9 C 01/14/18 07:54 Pulse 68 01/14/18 07:54 Resp 12 01/14/18 07:54 BP 164/73 H 01/14/18 07:54 Pulse Ox 100 01/14/18 07:54 HOME MEDICATIONS Levothyroxine Sodium [Synthroid] 75 mcg PO DAILY@0700 #60 tab 05/05/16 [Last Taken Unknown] Insulin Glargine,Hum.rec.anlog [Lantus] 12 units SC DAILY 02/05/17 [Last Taken Unknown] Aspirin [Aspirin Enteric Coated] 81 mg PO DAILY tablet. 07/27/17 [Last Taken Unknown] Metoprolol Succinate [Toprol Xl] 50 mg PO DAILY #30 tab 07/27/17 [Last Taken Unknown] Multivitamin/Iron/Folic Acid [Certagen] 1 tab PO DAILY@1200 tab 07/27/17 [Last Taken Unknown] blood sugar diagnostic strips See Dose Instructions .ROUTE .MEDSUPPLY #20 ea [Last Taken Unknown] citalopram 10 mg tablet 10 mg PO DAILY 12/07/17 [Last Taken Unknown] furosemide 40 mg tablet 80 mg PO DAILY tab 12/07/17 [Last Taken Unknown] insulin syringe with safety needle 1 mL 31 gauge x 5/16" See Dose Instructions .ROUTE .MEDSUPPLY #100 ea 12/07/17 [Last Taken Unknown] lisinopril 10 mg tablet 10 mg PO DAILY 12/07/17 [Last Taken Unknown] Allergies/Adverse Reactions: Allergies Allergy/AdvReac Type Severity Reaction Status Date / Time Influenza Virus Vaccines AdvReac Intermediate arm Verified 12/12/17 13:50 swelling, nausea, abd cramping - Planned Procedure Planned Procedure: L HIP FX,DM2,HTN,HX AFIB Medication List Reviewed:: Yes Allergies Verified: Yes Medical History (Last Reviewed 01/14/18 @ 08:39 by Carlito Rose CRNA) GERD (gastroesophageal reflux disease) (Chronic) Onset Date: ~01/29/12 Diabetes mellitus type 2, controlled, without complications (Chronic) Onset Date: ~1993 History of pneumonia Hx of atrial fibrillation, no current medication HTN (hypertension) Onset Date: Unknown Osteoarthritis involving multiple joints on both sides of body Onset Date: ~ Ankle fracture Onset Date: ~1992 Cerebrovascular disease Onset Date: ~2003 Deficient knowledge of cholecystectomy Onset Date: ~1991 H/O echocardiogram Onset Date: ~07/17/17 Surgical History (Last Reviewed 01/14/18 @ 08:39 by Carlito Rose CRNA) Cataract Onset Date: ~2011 H/O lumpectomy Onset Date: Unknown History of tonsillectomy Onset Date: Unknown Family History (Last Reviewed 01/14/18 @ 08:39 by Carlito Rose CRNA) Father No problems noted. Mother Cancer - Family Anesthesia History Family History:: no untoward family reactions to anesthesia, no familial bleeding tendencies, no family history of clotting disorders, no family history of premature - Airway/Neck/Teeth Within Normal Limits:: Yes Teeth Condition: None Denture Type: None Neck Exam: non-tender, limited range of motion Mallampatti Score: 3 Thyromental (T-M) distance: > 6 cm Mandibulo Hyoid distance: > 3 cm - Respiratory Respiratory: chest non-tender, lungs clear Smoking Status: Never smoker Sleep Apnea currently treated: No Sleep Apnea by current assessment: No - Cardiovascular Patient History - Cardiac/Respiratory: Atrial Fibrillation, Arrhythmias, CVA/ Stroke - Hx cardiac arrest, hospitalized for pneumonia late last year Tolerates Activity: Fair Heart Sounds: S1 & S2, Regular - Anesthesia Assessment and Plan ASA Class: PS, III Anesthesia Type Plan: Spinal - Discussed DNR with pt and family, wish to continue DNR through surgery
--- NOTE | 2018-01-14 09:18 | CONS ---
HPI - General Date of Service: 01/13/18 Narrative: Patient is a 72-year-old female presents after a fall outside of her home where she lives with her son. She noted acute left hip pain at the time of the fall. She is brought to the ER and evaluated. She currently is mild to moderately sedated due to pain medication. She otherwise appears to be resting comfortably. Source: patient, RN/MD - History of Present Illness Allergies/Adverse Reactions: Allergies Influenza Virus Vaccines Adverse Reaction (Intermediate, Verified 12/12/17 13:50 ) arm swelling, nausea, abd cramping Home Medications: Home Medications Medication Instructions Recorded Last Taken Levothyroxine Sodium [Synthroid] 75 mcg PO DAILY@0700 #60 tab 05/05/16 Unknown Insulin Glargine,Hum.rec.anlog 12 units SC DAILY 02/05/17 Unknown [Lantus] Aspirin [Aspirin Enteric Coated] 81 mg PO DAILY tablet. 07/27/17 Unknown Metoprolol Succinate [Toprol Xl] 50 mg PO DAILY #30 tab 07/27/17 Unknown Multivitamin/Iron/Folic Acid 1 tab PO DAILY@1200 tab 07/27/17 Unknown [Certagen] blood sugar diagnostic strips See Dose Instructions .ROUTE 12/07/17 Unknown .MEDSUPPLY #20 ea citalopram 10 mg tablet 10 mg PO DAILY 12/07/17 Unknown furosemide 40 mg tablet 80 mg PO DAILY tab 12/07/17 Unknown insulin syringe with safety needle See Dose Instructions .ROUTE 12/07/17 Unknown 1 mL 31 gauge x 5/16" .MEDSUPPLY #100 ea lisinopril 10 mg tablet 10 mg PO DAILY 12/07/17 Unknown Procedures Drainage of Bladder with Drainage Device, Via Natural or Artificial Opening () Insertion of intraocular lens prosthesis at time of cataract extraction, one- stage (06/12/11) Measurement of Arterial Saturation, Peripheral, Percutaneous Approach (07/16/17) Measurement of systemic arterial blood gases (01/04/11) Phacoemulsification and aspiration of cataract (06/12/11) Ultrasonography of Right and Left Heart (07/16/17) Medications - Medications Current Medications: Current Medications Insulin Human Lispro (Humalog) 0 units SC ACINS [facility]; Protocol Stop: 02/12/18 17:01 Last Admin: 01/14/18 06:23 Dose: Not Given Levothyroxine Sodium (Synthroid) 75 mcg PO DAILY@0700 [facility] Stop: 02/13/18 07:01 Last Admin: 01/14/18 06:23 Dose: Not Given Morphine Sulfate (Morphine Sulfate) 1 mg IV Q2H PRN PRN Reason: Moderate Pain (pain scale 4-6) Stop: 02/13/18 06:32 Last Admin: 01/14/18 06:53 Dose: 1 mg Nystatin (Mycostatin Powder) 1 appl TP BID [facility] Stop: 02/12/18 21:01 Last Admin: 01/13/18 20:54 Dose: 1 appl Oxycodone/Acetaminophen (Percocet 5 Mg/325 Mg) 2 tab PO Q4H PRN PRN Reason: Severe Pain (pain scale 7-10) Stop: 02/12/18 13:47 Last Admin: 01/14/18 00:38 Dose: 2 tab Physical Examination - Exam Vital Signs: Vital Signs - Last Taken Temp 36.9 C 01/14/18 07:54 Pulse 68 01/14/18 07:54 Resp 12 01/14/18 07:54 BP 164/73 H 01/14/18 07:54 Pulse Ox 100 01/14/18 07:54 O2 Oxygen Delivery Method Room Air Constitutional: Present: No distress Respiratory: Present: no respiratory distress Extremity: Present: other - LLE--> painful with motion, sensation intact light touch, Refill brisk, spontaneous motion of toes and ankle, no significant wounds RLE--> erythema and mild edema of the foot and ankle to just below the knee Thoughts: Present: other - Appears sedated nursing notes this is due to recent pain medication - Results and Findings: Narrative: -72-year-old female status post fall presented to the ER with a left subcapital femoral neck fracture -Discussed with son who is the POA conservative versus surgical treatment and the risks versus benefits involved including risks of further complications, infection, bleeding, DVT, paralysis, heart attack, stroke. Son states they wish to move forward with surgical intervention. Patient was consented for a left hip cemented hemiarthroplasty versus total hip arthroplasty with Dr. Osorio on 01/14/2018. Discussed care after surgical intervention, will depend on patient's progression with PT and postsurgical status. -N.p.o. -June in place will maintain until patient is weightbearing as tolerated -Pain control with morphine, oral pain meds as needed -Chronic medical conditions per medicine -Discussed with Dr. Pringle clearance for surgery, will proceed with surgery when cleared per medicine -DVT prophylaxis SIERRA hose -Nonweightbearing Lab/Microbiology results last 24 hrs: Abnormal/Pending Laboratory Last 24 HRS 01/14/18 01/14/18 01/14/18 05:20 05:20 00:35 RBC 4.14 L Hgb 11.4 L 10.5 L Hct 36.2 L 32.5 L MCHC 31.5 L RDW 14.6 H Monocytes % Sodium 145 H Plasma Sodium 145 H Potassium 5.0 H Chloride 110 H Carbon Dioxide Anion Gap BUN 41 H Creatinine 2.32 H Est GFR (Non-Af Amer) 22 L Random Glucose 124 H Albumin Urine Protein Urine Blood Crossmatch 01/13/18 01/13/18 01/13/18 12:22 12:12 11:11 RBC Hgb Hct MCHC RDW Monocytes % Sodium 143 H Plasma Sodium 144 H Potassium Chloride 108 H Carbon Dioxide 23.4 L Anion Gap 16.1 H BUN 41 H Creatinine 2.11 H Est GFR (Non-Af Amer) 24 L Random Glucose 144 H Albumin 3.1 L Urine Protein 30 H Urine Blood 50 H Crossmatch See Detail 01/13/18 11:11 RBC 2.91 L Hgb 8.0 L Hct 25.4 L MCHC 31.1 L RDW 14.7 H Monocytes % 9.2 H Sodium Plasma Sodium Potassium Chloride Carbon Dioxide Anion Gap BUN Creatinine Est GFR (Non-Af Amer) Random Glucose Albumin Urine Protein Urine Blood Crossmatch Culture 01/13/18 19:00 - Final Nares MRSA Positive - Assessments/Findings (1) Closed subcapital fracture of left femur Problem: Acute Qualifiers: Encounter type: initial encounter Qualified Code(s): S72.012A - Unspecified intracapsular fracture of left femur, initial encounter for closed fracture
[2018-01-14] MEDS: CITALOPRAM HYDROBROMIDE 10 MG TABLET PO SCH (10:22)
[2018-01-14] MEDS: INSULIN GLARGINE,HUM.REC.ANLOG 100 UNITS/ML VIAL SC SCH (10:22)
[2018-01-14] MEDS: METOPROLOL SUCCINATE 50 MG TABLET.SA PO SCH (10:24)
[2018-01-14] MEDS: MORPHINE SULFATE 2 MG/ML DISP.SYRIN IV PRN ×2 (10:28→14:39)
[2018-01-14] MEDS: MULTIVITAMIN/IRON/FOLIC ACID 1 TAB TABLET PO SCH (11:41)
--- NOTE | 2018-01-14 13:37 | PN ---
Subjective - Date and Time Seen Date: 01/14/18 Time: 09:45 Subjective Narrative: Patient seen and examined at bedside. No acute issues overnight. Patient much more alert and talkative this AM. Pain adequately controlled at the time of my exam. The patient's son had already left this AM so he was not available to discuss the plan of care with but he did meet with the ortho team already this AM. Objective - Review of Systems Respiratory: Denies: Shortness of Breath Cardiac: Reports: Edema - chronic. Denies: Chest Pain Musculoskeletal Complaints: Reports: Joint Pain Skin: Reports: Other - wounds to lower extremities right>left Misc: All systems neg except as marked - Vitals Vitals: Last Vital Signs Temp 36.8 C 01/14/18 11:54 Pulse 73 01/14/18 11:54 Resp 16 01/14/18 11:54 BP 179/93 H 01/14/18 11:54 Pulse Ox 95 01/14/18 11:54 - Abnormal Lab Findings Abnormal Lab Findings: Abnormal Lab Results 01/13/18 01/13/18 01/14/18 Range/Units 12:12 12:22 00:35 RBC (4.2-5.4) M/mm3 Hgb 10.5 L (12.5-16.0) gm/dL Hct 32.5 L (37.0-47.0) % MCHC (32-36) g/dl RDW (11.5-14.0) % Sodium (132-142) mmol/L Plasma Sodium (130-142) mmol/L Potassium (3.4-4.6) mmol/L Chloride (97-106) mmol/L BUN (3-23) mg/dL Creatinine (0.4-1.4) mg/dL Est GFR (Non-Af Amer) (60-130) mL/min Random Glucose (70-110) mg/dL Urine Protein 30 H (NEGATIVE) mg/dL Urine Blood 50 H (NEGATIVE) /ul Crossmatch See Detail 01/14/18 01/14/18 Range/Units 05:20 05:20 RBC 4.14 L (4.2-5.4) M/mm3 Hgb 11.4 L (12.5-16.0) gm/dL Hct 36.2 L (37.0-47.0) % MCHC 31.5 L (32-36) g/dl RDW 14.6 H (11.5-14.0) % Sodium 145 H (132-142) mmol/L Plasma Sodium 145 H (130-142) mmol/L Potassium 5.0 H (3.4-4.6) mmol/L Chloride 110 H (97-106) mmol/L BUN 41 H (3-23) mg/dL Creatinine 2.32 H (0.4-1.4) mg/dL Est GFR (Non-Af Amer) 22 L (60-130) mL/min Random Glucose 124 H (70-110) mg/dL Urine Protein (NEGATIVE) mg/dL Urine Blood (NEGATIVE) /ul Crossmatch - Exam Constitutional: Present: Alert, Cooperative, No distress, Elderly, Looks Older than stated age ENT Exam: Present: hearing grossly normal, dry mucous membranes Respiratory: Present: lungs clear, normal breath sounds, no respiratory distress , no accessory muscle use, other - Crackles noted at the bases bilaterally left> right. However, after having the patient take some deep breaths and cough a few times, the crackles resolved most likely indicating atelectasis. Cardiovascular/Chest: Present: regular rate, rhythm, other - loud S2, edema - Trace edema left LE, 1 to 2+ edema in right lower extremity Abdomen: Present: soft, nontender Extremity: Present: lower extremity edema Skin Exam: Present: warm/dry, other - Bilateral lower extremity wounds with open sores secondary to chronic edema and weeping with associated erythema; right LE worse than left LE Neurologic: Present: alert, other - Possible tardive dyskinesia vs. abnormal oral (mouth, lips and tongue) movements secondary to the patient be edentulous Eye contact: Present: cooperative Thoughts: Present: normal thought pattern, no apparent hallucination Cauti Physician Documentation - Urinary Catheter Management Urethral (June) Date of Insertion: 01/13/18 Time of Insertion: 11:45 Assessment/Plan Plan Narrative: Patient admitted to the hospital for a left femoral neck fracture. Per x-ray report while in the ED: "acute, mildly displaced and minimally impacted left subcapital femoral neck fracture." Plan is for a left theresa-arthroplasty later this afternoon. The patient has chronic normocytic anemia with a baseline hemoglobin between 8- 9. The patient was transfused 2 units of PRBCs on admission with improved hemoglobin. Monitor levels post-operatively. Right lower extremity significantly more swollen and edematous and it is difficult to fully assess her leg secondary to the patient's severe TTP. US showed no DVT. The patient has a history of combined diastolic and systolic heart failure as well as stage 4 CKD with a baseline creatinine between 2-2.5 so we will need to continue to monitor her fluid status very closely perioperatively. Daily weight. Strict I&O. NPO until after surgery and then resume consistent carb diet. Pain medications as needed with goal to keep patient comfortable but not over sedated. Monitor BG ACHS and PRN. Continue home Lantus. Medium dose SSI. Wound care team consulted for patient's lower extremity wounds. Appreciate their assistance in the care of this patient. Start VTE ppx per ortho's recommendations following surgery. PT/OT evaluation and treatment following surgery. Encourage IS. It is quite likely the patient will need SNF placement at discharge. Case workers will discuss further with the patient and her son after surgery. PREOPERATIVE EVALUATION: The patient denies any known history of ischemic heart disease - she denies history of IN and denies history of a positive cardiac stress test. She denies any chest pain and does not use nitrate therapy. There are no pathologic Q waves seen on her EKG which I personally reviewed and overall, her EKG actually looks much better than prior EKGs which had T-wave inversions and demonstrated likely ischemia. The patient is not scheduled for a high risk procedure. The patient has a history of combined diastolic and systolic heart failure. The patient has a history of stroke. The patient is diabetic and does use insulin. The patient's pre-operative labs were personally reviewed and her creatinine this AM was 2.32. The patient denies any chest pain but she has chronic RENTERIA, SOB and LE edema. She is unable to walk 2+ blocks or up 2+ flights of stairs secondary to deconditioning and relatively sedentary lifestyle but states that her activity has NOT been limited due to chest pain. The patient is scheduled to receive the following procedure: Left hip theresa- arthroplasty. The patient has at least 4 of the 6 independent risk factors for major cardiac events, predicting a risk of 5.4%. She is scheduled to have an intermediate risk procedure with a reported risk of cardiac or nonfatal IN of 1-5%. These potential risks were discussed with the patient and she wishes to proceed with surgery. Given her multiple comorbidities, especially her history of CHF and CKD, and a functional capacity of less than 4 METS her overall risk is ELEVATED. However, there is no further testing required prior to proceeding with surgery. Patient will need to be monitored closely perioperatively as she is at a significantly elevated risk of perioperative complications. - Problems/Diagnosis (1) Intertrochanteric fracture of left hip Problem: Acute Qualifiers: Encounter type: initial encounter Fracture type: closed Fracture alignment: displaced Qualified Code(s): S72.142A - Displaced intertrochanteric fracture of left femur, initial encounter for closed fracture (2) Fall at home Problem: Acute (3) Wound of lower extremity Problem: Chronic Qualifiers: Laterality: right (4) Hypothyroidism Problem: Chronic Qualifiers: (5) PAD (peripheral artery disease) Problem: Chronic (6) CHF (congestive heart failure) Problem: Chronic Qualifiers: Heart failure type: combined systolic and diastolic Heart failure chronicity: chronic Qualified Code(s): I50.42 - Chronic combined systolic ( congestive) and diastolic (congestive) heart failure (7) HTN (hypertension) Problem: Chronic Qualifiers: Hypertension type: essential hypertension Qualified Code(s): I10 - Essential (primary) hypertension (8) CVA (cerebral vascular accident) Problem: Chronic (9) T2DM (type 2 diabetes mellitus) Problem: Chronic Qualifiers: Diabetes mellitus correction insulin use: with er nurse use Diabetes mellitus complication status: with unspecified complications Qualified Code(s) : E11.8 - Type 2 diabetes mellitus with unspecified complications; Z79.4 - custodial (current) use of insulin (10) Anemia Problem: Chronic Qualifiers: Anemia type: due to chronic kidney disease Chronic kidney disease stage: stage 4 (severe) Qualified Code(s): N18.4 - Chronic kidney disease, stage 4 ( severe); D63.1 - Anemia in chronic kidney disease (11) Chronic renal failure, stage 4 (severe) Problem: Chronic
[2018-01-14] MEDS: RINGER'S SOLUTION,LACTATED 1,000 ML IV PRN ×2 (14:44→19:20)
--- NOTE | 2018-01-14 15:07 | CONS ---
[facility] - General Date of Service: 01/14/18 Source: patient Exam Limitations: clinical condition - History of Present Illness Initial Comments: Patient is a 72 year old female, recently admitted to the hospital after a fall at home that resulted in a hip fracture. It was also noted that she has edema, dry flaky skin and open areas on the lower extremities. She has been a patient in the [facility] in the past, due to non-healing ulcers. The patient appears groggy, and does answer questions vaguely. She states that she might have had wounds to her legs for a long period of time. She cannot recall any treatment. Timing/Duration: unsure Allergies/Adverse Reactions: Allergies Influenza Virus Vaccines Adverse Reaction (Intermediate, Verified 12/12/17 13:50 ) arm swelling, nausea, abd cramping Home Medications: Home Medications Medication Instructions Recorded Last Taken Levothyroxine Sodium [Synthroid] 75 mcg PO DAILY@0700 #60 tab 05/05/16 Unknown Insulin Glargine,Hum.rec.anlog 12 units SC DAILY 02/05/17 Unknown [Lantus] Aspirin [Aspirin Enteric Coated] 81 mg PO DAILY tablet. 07/27/17 Unknown Metoprolol Succinate [Toprol Xl] 50 mg PO DAILY #30 tab 07/27/17 Unknown Multivitamin/Iron/Folic Acid 1 tab PO DAILY@1200 tab 07/27/17 Unknown [Certagen] blood sugar diagnostic strips See Dose Instructions .ROUTE 12/07/17 Unknown .MEDSUPPLY #20 ea citalopram 10 mg tablet 10 mg PO DAILY 12/07/17 Unknown furosemide 40 mg tablet 80 mg PO DAILY tab 12/07/17 Unknown insulin syringe with safety needle See Dose Instructions .ROUTE 12/07/17 Unknown 1 mL 31 gauge x 5/16" .MEDSUPPLY #100 ea lisinopril 10 mg tablet 10 mg PO DAILY 12/07/17 Unknown Procedures Drainage of Bladder with Drainage Device, Via Natural or Artificial Opening () Insertion of intraocular lens prosthesis at time of cataract extraction, one- stage (06/12/11) Measurement of Arterial Saturation, Peripheral, Percutaneous Approach (07/16/17) Measurement of systemic arterial blood gases (01/04/11) Phacoemulsification and aspiration of cataract (06/12/11) Ultrasonography of Right and Left Heart (07/16/17) Medications - Medications Current Medications: Current Medications Citalopram Hydrobromide (Celexa) 10 mg PO DAILY [facility] Stop: 02/13/18 09:01 Last Admin: 01/14/18 10:22 Dose: Not Given Lactated Ringer's (Lactated Ringers) 1,000 mls @ 175 mls/hr IV .Q5H43M PRN PRN Reason: HYDRATION Stop: 01/15/18 23:59 Last Admin: 01/14/18 14:44 Dose: 175 mls/hr Insulin Glargine (Lantus) 12 units SC DAILY [facility] Stop: 02/13/18 09:01 Last Admin: 01/14/18 10:22 Dose: Not Given Insulin Human Lispro (Humalog) 0 units SC ACINS [facility]; Protocol Stop: 02/12/18 17:01 Last Admin: 01/14/18 11:41 Dose: Not Given Levothyroxine Sodium (Synthroid) 75 mcg PO DAILY@0700 [facility] Stop: 02/13/18 07:01 Last Admin: 01/14/18 06:23 Dose: Not Given Metoprolol Succinate (Toprol Xl) 50 mg PO DAILY [facility] Stop: 02/13/18 09:01 Last Admin: 01/14/18 10:24 Dose: 50 mg Morphine Sulfate (Morphine Sulfate) 1 mg IV Q2H PRN PRN Reason: Moderate Pain (pain scale 4-6) Stop: 02/13/18 06:32 Last Admin: 01/14/18 06:53 Dose: 1 mg Morphine Sulfate (Morphine Sulfate) 2 mg IV Q2H PRN PRN Reason: Severe Pain (pain scale 7-10) Stop: 02/13/18 06:32 Last Admin: 01/14/18 14:39 Dose: 2 mg Multivitamins/Minerals (Certagen) 1 tab PO DAILY@1200 [facility] Stop: 02/13/18 12:01 Last Admin: 01/14/18 11:41 Dose: Not Given Nystatin (Mycostatin Powder) 1 appl TP BID [facility] Stop: 02/12/18 21:01 Last Admin: 01/14/18 08:15 Dose: 1 appl Oxycodone/Acetaminophen (Percocet 5 Mg/325 Mg) 2 tab PO Q4H PRN PRN Reason: Severe Pain (pain scale 7-10) Stop: 02/12/18 13:47 Last Admin: 01/14/18 00:38 Dose: 2 tab Review of Systems - Review of Systems Narrative: unable to obtain due to patient condition Skin: Present: Lesions Physical Examination - Exam Vital Signs: Vital Signs - Last Taken Temp 36.8 C 01/14/18 11:54 Pulse 73 01/14/18 11:54 Resp 16 01/14/18 11:54 BP 179/93 H 01/14/18 11:54 Pulse Ox 95 01/14/18 11:54 O2 Oxygen Delivery Method Room Air Constitutional: Present: Mild distress, Elderly, Thin and frail ENT Exam: Present: hard of hearing Skin Exam: Present: other - there are no open, draining areas on bilateral lower extremities. she does have edema and dry, flaky skin is present. the right lower leg is reddened and warm. - Results and Findings: Lab/Microbiology results last 24 hrs: Abnormal/Pending Laboratory Last 24 HRS 01/14/18 01/14/18 01/14/18 05:20 05:20 00:35 RBC 4.14 L Hgb 11.4 L 10.5 L Hct 36.2 L 32.5 L MCHC 31.5 L RDW 14.6 H Sodium 145 H Plasma Sodium 145 H Potassium 5.0 H Chloride 110 H BUN 41 H Creatinine 2.32 H Est GFR (Non-Af Amer) 22 L Random Glucose 124 H Crossmatch 01/13/18 12:12 RBC Hgb Hct MCHC RDW Sodium Plasma Sodium Potassium Chloride BUN Creatinine Est GFR (Non-Af Amer) Random Glucose Crossmatch See Detail Culture 01/13/18 19:00 - Final Nares MRSA Positive - Assessments/Findings (1) Wound of lower extremity Problem: Chronic Qualifiers: Laterality: right (2) Stasis dermatitis Diagnosis(s): There are no open areas at this time, however the nursing staff shared that they had recently washed the legs thoroughly. This was very beneficial to the patient. Recommend using mometasone cream to bilateral lower legs, applied daily. She may also benefit from tubigrip bilaterally. She should have her legs elevated and washed daily with soap and water. Will continue to monitor for additional open areas. Thank you for this consult. Problem: Acute
[2018-01-14] MEDS: VANCOMYCIN HCL 1 GM in DEXTROSE 5 % IN WATER 250 ML IV PRN ×4 (15:58→16:08)
[2018-01-14] MEDS ORDERED: TRANEXAMIC ACID 1,000 MG in NORMAL SALINE 100 ML IV PRN (16:00)
[2018-01-14] MEDS ORDERED: VANCOMYCIN HCL 1 GM VIAL TP ONE (18:15)
[2018-01-14] MEDS ORDERED: MAG HYDROX/ALUMINUM HYD/SIMETH 30 ML UDC PO PRN (19:08)
[2018-01-14] MEDS ORDERED: ACETAMINOPHEN 500 MG TABLET PO PRN (19:08)
[2018-01-14] MEDS ORDERED: ONDANSETRON HCL/PF 2 MG/ML VIAL IV PRN (19:08)
[2018-01-14] MEDS ORDERED: MAGNESIUM HYDROXIDE 30 ML UDC PO PRN (19:08)
[2018-01-14] MEDS ORDERED: diphenhydrAMINE HCL 50 MG/ML VIAL IV PRN (19:08)
[2018-01-14] MEDS ORDERED: MORPHINE SULFATE 4 MG/ML SYRG IV PRN (19:08)
--- NOTE | 2018-01-14 19:15 | OR ---
Operative Report - Dictated Report Narrative: Date: 01/14/2018 Preoperative diagnosis: Closed left hip displaced femoral neck fracture. Postoperative diagnosis: Closed left hip displaced femoral neck fracture Procedure: Left hip cemented theresa-arthroplasty. Surgeon: Geovanny Osorio M.D. Medicaid Nurse: Carlos Soler PA-C Anesthesia: Spinal. Complications: None Specimens: Bone for disposal. Estimated blood loss: 250 milliliters. Retained implants: Depuy [place] size 2 basic cemented femoral stem. Size 43 millimeter ouside diameter self-centering bipolar head with + 1.5 millimeter cobalt chromium 28 mm femoral head. Indications: Vianey is a 72-year-old female with type 2 diabetes, congestive heart failure, and chronic kidney disease who lives at home with her son and ambulates around her house. This patient was evaluated on the floor and found to have sustained a displaced femoral neck fracture. The risks and benefits were discussed with the patient as well as any power of insurance defense attorney. Patient wished to proceed with surgical treatment. The risks, benefits, and alternatives discussed were , blood clots, bleeding, infection, nerve/ tendon blood vessel/ injury, malposition of components, dislocation and/or instability of joint, intraoperative fracture, postoperative limited range of motion, persistent pain, failure of components, and need for additional procedures. Patient wished to proceed. Consent was obtained after answering all questions. Procedure: After marking the correct extremity on the floor, the patient was taken to the operating room. A timeout was performed. IV antibiotics consisting of 1 g of vancomycin due to MRSA positive nares was administered prior to the procedure. A spinal anesthetic was induced by anesthesia. A June catheter was inserted if not are in place. The patient was then transitioned to a lateral position on a well-padded pegboard. And an axillary roll was placed. The head was in neutral position. The non-operative down leg was well-padded with SCD and SIERRA hose in place. The arms were supported and padded to protect from any undue pressure on the bony prominences and nerves. Well-padded anterior and posterior pelvic and chest posts were secured in order to maintain a stable position of the pelvis. This was placed so that the pelvis was perpendicular to the floor. The body was in line with the pelvis. Once it was felt that we had protected all the bony prominences and the patient was well secured with a safety belt as well, the leg was pre-scrubbed with alcohol, prepped and draped in a standard sterile fashion. A standard anterior lateral hip incision was marked out over the greater trochanter. Ioban drapes were then placed. The skin incision was then made. Sharp dissection with a scalpel utilizing cautery for hemostasis was carried out down to the gluteus and iliotibial band fascia. This was split in line with the skin incision. The greater trochanter bursa was excised. The anterior and posterior margins of the abductor tendon were identified. The anterior 1/3 of the tendon was tagged and reflected off the greater trochanter leaving a sleeve of tendon for repair at the completion of the case. This exposed the underlying hip joint capsule. An inverted T-type capsulotomy was made extending this up to the brim of the acetabulum. We encountered a hematoma at this point confirming an acute fracture as well as noted displacement of the femoral neck fracture. Using Justin retractors to assist with elevation of the soft tissues off the anterior, superior, and inferior aspects of the femoral neck, the hip was then placed in a figure 4 position and the femoral neck cleanup cut was then made. With the leg in an externally rotated and adducted position, the cutting flag was utilized in order to olga for a standard femoral neck cut approximately a fingerbreadth above the level of the lesser trochanter. This was done while protecting the surrounding soft tissues with Justin retractors. The femoral head was then removed and sized for guidance on the size of the bipolar head. It was noted that there was no significant loss of articular cartilage on both the femoral head and weightbearing portions of the acetabulum. We then returned the leg to the table and turned our attention to the acetabulum. While protecting the surrounding soft tissues, the labrum and remaining tissue in the fovea were excised using a scalpel and cautery. This was then protected with a sponge while we returned our attention to the femur. With the leg in a figure 4 position utilizing Justin retractors for soft tissue protection, a box cutting osteotome, followed by Sabrina awbettie, followed by serial broaches were utilized in order to prepare the femur. It was found that a size 2 broach gave good axial and rotational stability. The proximal femur was visualized to ensure that there were no signs of fracture. A series of heads were trialed. It was found that a 43 mm + 1.5 mm femoral head gave good overall stability. There is minimal longitudinal instability. With the leg in the position of sleep the femoral head was well covered. Hip range of motion was able to reach full extension and external rotation to greater than 75 degrees prior to impingement along the posterior acetabulum. The hip was able to be flexed to greater than 90 degrees with internal rotation greater than 60 degrees prior to anterior impingement. The limb lengths were near equal based on comparison to the contralateral side. At this point was felt this was the appropriately sized femoral components as well as neck and femoral head. The trial implants were removed. A canal cement plug was placed distally and the canal was thoroughly irrigated using pulsatile vacuum brush device. The canal was then thoroughly dried with a suction device and canal sponge. Cement was vacuum mixed per the airworthiness safety inspector' s instructions and placed into a cement gun. Cement was then placed in a dry irrigated femur and a moderate cementing technique using a pressurizing device. The stem was then placed in the appropriate version compared to her [place] anatomy and held in place while the cement cured and the extruded cement was removed. Once the cement was fully cured we ensured that the stem was stable and that there were no signs of fracture. The extruded cement was removed, and the joint and the capsule were thoroughly evaluated to ensure there are no cement fragments. Once was felt that we adequately removed the extra cement and that the joint was prepared for final implants, the final femoral bipolar head was then impacted in the place. The hip was then reduced and seated completely. The capsule was repaired with interrupted #1 Vicryl. The abductor tendon was repaired to the greater trochanter utilizing #5 Ethibond through drill holes. This was oversewn with #1 Vicryl. The fascia was closed with interrupted #1 Vicryl. The wounds were thoroughly irrigated as we closed in layers. The deep fat layers were closed with 0 Vicryl and the dermis was approximated with interrupted 3-0 Vicryl. The skin was closed with a running subcuticular 4-0 monocryl and kasandra. All sponge, needle, blade, and instrument counts were correct prior to closing the wounds. Sterile dressings consisting of Xeroform, 4 x 4's, ABD, and tape were applied. The patient was awoken and transferred to her hospital bed and then to the postanesthesia care unit in stable condition. Postoperative condition: The plan is to return to the medical/surgical inpatient floor postoperatively. Postoperatively 24 hours of IV antibiotics, pain control, physical therapy, occupational therapy, and medical comanagement will be utilized. Patient will be weightbearing as tolerated with anterior hip precautions. Postoperative films will be obtained in the recovery room.
--- NOTE | 2018-01-14 19:35 | ANES ---
Post Anesthesia Discharge - Transfer of Care Transfer of Care handoff given to nurse: Yes - Discharge from PACU Discharge from PACU when meets criteria: Yes - Awake and comfortable - Anesthesia Post Op Note Anesthesia Post Op Note: On O2, SaO2 room air 80s, 90s on O2.
[2018-01-14] MEDS: NORMAL SALINE 1,000 ML IV PRN (20:32)
--- NOTE | 2018-01-14 21:39 | ANES ---
Post Anesthesia Assessment - Vital Signs Vitals: Last Vital Signs Temp 38.0 C 01/14/18 19:30 Pulse 59 L 01/14/18 20:00 Resp 14 01/14/18 20:00 BP 179/86 H 01/14/18 20:00 Pulse Ox 97 01/14/18 20:00 Airway Patency: Normal - Mental Status Level Of Consciousness: Awake - Pain Level Pain Score: 0 - N/V Assessment Nausea/Vomiting Presence: None Dehydration:: No
[2018-01-14] MEDS: SENNOSIDES/DOCUSATE SODIUM 1 TAB TABLET PO SCH (22:30)
[2018-01-15] MEDS: MORPHINE SULFATE 2 MG/ML DISP.SYRIN IV PRN (00:50)
[2018-01-15] MEDS ORDERED: VANCOMYCIN HCL 1 GM in DEXTROSE 5 % IN WATER 250 ML IV PRN ×2 (04:00)
[2018-01-15] MEDS: oxyCODONE HCL/ACETAMINOPHEN 1 TAB TABLET PO PRN ×3 (04:18→20:24)
[2018-01-15 05:38] LABS: Hematocrit 32.6 % (37.0-47.0); Hemoglobin 10.3 gm/dL (12.5-16.0); Mean Cell Volume 87.9 fl (78-100); Mean Corpuscular Hemoglobin 27.8 pg (27-31); Mean Corpuscular Hgb Conc 31.6 g/dl (32-36); Mean Platelet Volume 11.7 fl (8-12.5); Platelet Count 172 K/mm3 (150-450); Red Blood Count 3.71 M/mm3 (4.2-5.4); Red Cell Distribution Width 14.2 % (11.5-14.0); White Blood Count 8.5 K/mm3 (4.0-10.5)
[2018-01-15 05:42] LABS: Anion Gap 13.4 mmol/L (6.8-13.8); Calcium * 7.9 mg/dL (7.9-10.9); Carbon Dioxide 24.1 mmol/L (24-32.6); Estimated Creat Clear 17.1; Potassium 4.5 mmol/L (3.4-4.6)
[2018-01-15] MEDS: NORMAL SALINE 1,000 ML IV PRN (06:17)
[2018-01-15] MEDS: LEVOTHYROXINE SODIUM 75 MCG TABLET PO SCH (07:56)
[2018-01-15] MEDS: INSULIN LISPRO 100 UNITS/ML VIAL SC SCH ×3 (08:02→17:10)
[2018-01-15] MEDS: CITALOPRAM HYDROBROMIDE 10 MG TABLET PO SCH (09:10)
[2018-01-15] MEDS: METOPROLOL SUCCINATE 50 MG TABLET.SA PO SCH (09:10)
[2018-01-15] MEDS: NYSTATIN 15 APPL BTL TP SCH ×2 (09:11→20:16)
[2018-01-15] MEDS: INSULIN GLARGINE,HUM.REC.ANLOG 100 UNITS/ML VIAL SC SCH (09:16)
[2018-01-15] MEDS: MULTIVITAMIN/IRON/FOLIC ACID 1 TAB TABLET PO SCH (11:59)
--- NOTE | 2018-01-15 13:12 | PN ---
Subjective - Date and Time Seen Date: 01/15/18 Time: 07:35 Subjective Narrative: No acute events reported. Patient states she is still having significant pain. She has not had PT yet at this time. Objective - Vitals Vitals: Last Vital Signs Temp 37 C 01/15/18 11:14 Pulse 60 01/15/18 11:14 Resp 20 01/15/18 11:14 BP 144/75 01/15/18 11:14 Pulse Ox 96 01/15/18 11:14 - Abnormal Lab Findings Abnormal Lab Findings: Abnormal Lab Results 01/15/18 01/15/18 Range/Units 05:31 05:31 RBC 3.71 L (4.2-5.4) M/mm3 Hgb 10.3 L (12.5-16.0) gm/dL Hct 32.6 L (37.0-47.0) % MCHC 31.6 L (32-36) g/dl RDW 14.2 H (11.5-14.0) % Chloride 107 H (97-106) mmol/L BUN 34 H (3-23) mg/dL Creatinine 2.00 H (0.4-1.4) mg/dL Est GFR (Non-Af Amer) 26 L (60-130) mL/min Random Glucose 155 H (70-110) mg/dL - Exam Constitutional: Present: Alert, Mild distress Respiratory: Present: no respiratory distress Extremity: Present: other - LLE--> bandages c/d/i, SILT, 4+/5 toe flex/ext, ttp diffusely over left hip Cauti Physician Documentation - Urinary Catheter Management Urethral (June) Date of Insertion: 01/13/18 Time of Insertion: 11:45 Assessment/Plan Plan Narrative: -72 y/o female post-op day #1 s/p left hip hemiarthroplasty - WBAT with assistance PRN, anterior precautions - PT/OT progress as tolerated - PO diet as tolerated - PO pain medication PRN - DVT prophy: osbaldo irizarry, SCDs in bed, lovenox - Hgb 10.3 continue to monitor - Chronic medical conditions per medicine - Problems/Diagnosis (1) Closed subcapital fracture of left femur Problem: Acute Qualifiers: Encounter type: initial encounter Qualified Code(s): S72.012A - Unspecified intracapsular fracture of left femur, initial encounter for closed fracture
--- NOTE | 2018-01-15 14:16 | PN ---
Subjective - Date and Time Seen Date: 01/15/18 Time: 14:15 Subjective Narrative: No fever, chills, nausea, or vomiting. Objective - Vitals Vitals: Last Vital Signs Temp 37 C 01/15/18 11:14 Pulse 60 01/15/18 11:14 Resp 20 01/15/18 11:14 BP 144/75 01/15/18 11:14 Pulse Ox 96 01/15/18 11:14 - Abnormal Lab Findings Abnormal Lab Findings: Abnormal Lab Results 01/15/18 01/15/18 Range/Units 05:31 05:31 RBC 3.71 L (4.2-5.4) M/mm3 Hgb 10.3 L (12.5-16.0) gm/dL Hct 32.6 L (37.0-47.0) % MCHC 31.6 L (32-36) g/dl RDW 14.2 H (11.5-14.0) % Chloride 107 H (97-106) mmol/L BUN 34 H (3-23) mg/dL Creatinine 2.00 H (0.4-1.4) mg/dL Est GFR (Non-Af Amer) 26 L (60-130) mL/min Random Glucose 155 H (70-110) mg/dL - Exam Constitutional: Present: Alert Respiratory: Present: lungs clear, normal breath sounds Cardiovascular/Chest: Present: regular rate, rhythm Abdomen: Present: Normal bowel sounds, soft, nontender, nondistended Cauti Physician Documentation - Urinary Catheter Management Urethral (June) Date of Insertion: 01/13/18 Time of Insertion: 11:45 Assessment/Plan Plan Narrative: Doing well medically. No concerns. Hip fracture treatment per orthopedics. - Problems/Diagnosis (1) Subcapital fracture of neck of femur Problem: Acute Qualifiers: Fracture type: closed Laterality: left (2) CHF (congestive heart failure), NYHA class II Problem: Chronic Qualifiers: Congestive heart failure type: systolic Congestive heart failure chronicity : chronic Qualified Code(s): I50.22 - Chronic systolic (congestive) heart failure (3) Diabetes mellitus type 2, controlled, without complications Problem: Chronic Qualifiers: Diabetes mellitus mcc insulin use: with predatory animal exterminator use Qualified Code( s): E11.9 - Type 2 diabetes mellitus without complications; Z79.4 - termite technician ( current) use of insulin (4) Hypertension Problem: Chronic Qualifiers: Hypertension type: essential hypertension Qualified Code(s): I10 - Essential (primary) hypertension
[2018-01-15] MEDS: ENOXAPARIN SODIUM 30 MG/0.3 ML SYRG SC SCH (17:34)
[2018-01-15] MEDS: SENNOSIDES/DOCUSATE SODIUM 1 TAB TABLET PO SCH (20:16)
[2018-01-16 05:53] LABS: Hematocrit 30.6 % (37.0-47.0); Hemoglobin 9.7 gm/dL (12.5-16.0); Mean Cell Volume 87.9 fl (78-100); Mean Corpuscular Hemoglobin 27.9 pg (27-31); Mean Corpuscular Hgb Conc 31.7 g/dl (32-36); Mean Platelet Volume 11.8 fl (8-12.5); Platelet Count 161 K/mm3 (150-450); Red Blood Count 3.48 M/mm3 (4.2-5.4); Red Cell Distribution Width 14.3 % (11.5-14.0); White Blood Count 6.9 K/mm3 (4.0-10.5)
[2018-01-16 05:58] LABS: Anion Gap 10.9 mmol/L (6.8-13.8); BUN/Creatinine Ratio 17.1 (9.0-21.6); Carbon Dioxide 23.3 mmol/L (24-32.6); Estimated Creat Clear 16.3; Potassium 4.2 mmol/L (3.4-4.6)
[2018-01-16] MEDS: INSULIN LISPRO 100 UNITS/ML VIAL SC SCH ×3 (06:19→16:55)
[2018-01-16] MEDS: LEVOTHYROXINE SODIUM 75 MCG TABLET PO SCH (06:34)
[2018-01-16] MEDS: NYSTATIN 15 APPL BTL TP SCH ×2 (08:32→23:01)
[2018-01-16] MEDS: CITALOPRAM HYDROBROMIDE 10 MG TABLET PO SCH (08:32)
[2018-01-16] MEDS: METOPROLOL SUCCINATE 50 MG TABLET.SA PO SCH (08:33)
[2018-01-16] MEDS: INSULIN GLARGINE,HUM.REC.ANLOG 100 UNITS/ML VIAL SC SCH (08:33)
--- NOTE | 2018-01-16 09:00 | PN ---
Progess Note - Interim Date: 01/16/18 Time: 08:10 Narrative: Patient is sitting up in the chair, appears to be more comfortable than previously. She states she still has left hip pain. She states she wishes to go home. Patient is unable to give a pain scale score. Her son is not in the room to discuss further treatment. Previously have discussed transition to SNF for recovery. Exam today reveals bandages clean, dry, intact, sensation intact light touch of distal extremity, cap refill brisk, 4+/5 ankle plantarflexion and dorsiflexion. PT has had patient up and walked a few steps patient requires maximum lift with 2 people. Discharge recommendations include: -72 y/o female post-op day #2 s/p left hip hemiarthroplasty - WBAT with assistance PRN, anterior precautions - PT/OT progress as tolerated - PO diet as tolerated - PO pain medication PRN, percocet 1-2 tabs every 4-6 hours PO PRN - DVT prophy: Hollis watson in bed, lovenox for 4 weeks followed by 4 weeks of 325mg aspirin daily - maintain dressing in place, can change dressing every 3-5 days PRN, replace with sterile gauze and tape - Chronic medical conditions per medicine 01/16/18 09:00
--- NOTE | 2018-01-16 12:10 | PN ---
Subjective - Date and Time Seen Date: 01/16/18 Subjective Narrative: The patient is resting comfortably in a chair. She is drowsy, and answers questions vaguely. The tubigrip is in place as directed. Objective Objective Narrative: Unable to obtain review of systems due to patient condition. - Vitals Vitals: Last Vital Signs Temp 36.7 C 01/16/18 11:48 Pulse 82 01/16/18 11:48 Resp 18 01/16/18 11:48 BP 158/76 H 01/16/18 11:48 Pulse Ox 98 01/16/18 11:48 - Abnormal Lab Findings Abnormal Lab Findings: Abnormal Lab Results 01/16/18 01/16/18 Range/Units 05:46 05:46 RBC 3.48 L (4.2-5.4) M/mm3 Hgb 9.7 L (12.5-16.0) gm/dL Hct 30.6 L (37.0-47.0) % MCHC 31.7 L (32-36) g/dl RDW 14.3 H (11.5-14.0) % Carbon Dioxide 23.3 L (24-32.6) mmol/L BUN 36 H (3-23) mg/dL Creatinine 2.10 H (0.4-1.4) mg/dL Est GFR (Non-Af Amer) 25 L (60-130) mL/min - Exam Constitutional: Present: No distress, Lethargic, Thin and frail Skin Exam: Present: normal color, warm/dry, other - there are currently no open , or draining wounds. Cauti Physician Documentation - Urinary Catheter Management Urethral (June) Date of Insertion: 01/13/18 Time of Insertion: 11:45 Assessment/Plan - Problems/Diagnosis (1) Wound of lower extremity Problem: Chronic Qualifiers: Laterality: right (2) Stasis dermatitis Problem: Acute Narrative: The tubigrip and elevation have been very beneficial to the patient. The dry, flaky skin has resolved. The patient does not require the mometasone at this time. Recommend continuing with current care, including washing the legs with soap and water daily.
[2018-01-16] MEDS: MULTIVITAMIN/IRON/FOLIC ACID 1 TAB TABLET PO SCH (12:19)
[2018-01-16] MEDS: ENOXAPARIN SODIUM 30 MG/0.3 ML SYRG SC SCH (17:16)
[2018-01-16] MEDS: SENNOSIDES/DOCUSATE SODIUM 1 TAB TABLET PO SCH (23:02)
[2018-01-16] MEDS: oxyCODONE HCL/ACETAMINOPHEN 1 TAB TABLET PO PRN (23:03)
[2018-01-17] MEDS ORDERED: LORazepam 2 MG/ML DISP.SYRIN IM ONE (08:05)
[2018-01-17] MEDS: INSULIN LISPRO 100 UNITS/ML VIAL SC SCH (08:05)
--- NOTE | 2018-01-17 09:09 | DS ---
(1) Intertrochanteric fracture of left hip Problem: Acute Qualifiers: Encounter type: initial encounter Fracture type: closed Fracture alignment: displaced Qualified Code(s): S72.142A - Displaced intertrochanteric fracture of left femur, initial encounter for closed fracture (2) Fall at home Problem: Acute (3) Wound of lower extremity Problem: Chronic Qualifiers: Laterality: right (4) Hypothyroidism Problem: Chronic Qualifiers: (5) PAD (peripheral artery disease) Problem: Chronic (6) CHF (congestive heart failure) Problem: Chronic Qualifiers: Heart failure type: combined systolic and diastolic Heart failure chronicity: chronic Qualified Code(s): I50.42 - Chronic combined systolic ( congestive) and diastolic (congestive) heart failure (7) HTN (hypertension) Problem: Chronic Qualifiers: Hypertension type: essential hypertension Qualified Code(s): I10 - Essential (primary) hypertension (8) CVA (cerebral vascular accident) Problem: Chronic (9) T2DM (type 2 diabetes mellitus) Problem: Chronic Qualifiers: Diabetes mellitus terminal clerk insulin use: with detention use Diabetes mellitus complication status: with unspecified complications Qualified Code(s) : E11.8 - Type 2 diabetes mellitus with unspecified complications; Z79.4 - terminal clerk (current) use of insulin (10) Anemia Problem: Chronic Qualifiers: Anemia type: due to chronic kidney disease Chronic kidney disease stage: stage 4 (severe) Qualified Code(s): N18.4 - Chronic kidney disease, stage 4 ( severe); D63.1 - Anemia in chronic kidney disease (11) Chronic renal failure, stage 4 (severe) Problem: Chronic Description of Stay: HOSPITAL COURSE: The patient was admitted for a left hip fracture after a fall at home and she underwent a left cemented theresa-arthroplasty during her admission. Overall, her admission was uneventful and she was discharged to SNF in stable condition. Procedures Performed: see notes below List Procedures: Date: 01/14/2018 Preoperative diagnosis: Closed left hip displaced femoral neck fracture. Postoperative diagnosis: Closed left hip displaced femoral neck fracture Procedure: Left hip cemented theresa-arthroplasty. Surgeon: Geovanny Osorio M.D. Inspector Multifocal Lens: Carlos Soler PA-C Anesthesia: Spinal. Complications: None Specimens: Bone for disposal. Estimated blood loss: 250 milliliters. Retained implants: Depuy [place] size 2 basic cemented femoral stem. Size 43 millimeter ouside diameter self-centering bipolar head with + 1.5 millimeter cobalt chromium 28 mm femoral head. Indications: Vianey is a 72-year-old female with type 2 diabetes, congestive heart failure, and chronic kidney disease who lives at home with her son and ambulates around her house. This patient was evaluated on the floor and found to have sustained a displaced femoral neck fracture. The risks and benefits were discussed with the patient as well as any power of claim attorney. Patient wished to proceed with surgical treatment. The risks, benefits, and alternatives discussed were , blood clots, bleeding, infection, nerve/ tendon blood vessel/ injury, malposition of components, dislocation and/or instability of joint, intraoperative fracture, postoperative limited range of motion, persistent pain, failure of components, and need for additional procedures. Patient wished to proceed. Consent was obtained after answering all questions. Procedure: After marking the correct extremity on the floor, the patient was taken to the operating room. A timeout was performed. IV antibiotics consisting of 1 g of vancomycin due to MRSA positive nares was administered prior to the procedure. A spinal anesthetic was induced by anesthesia. A June catheter was inserted if not are in place. The patient was then transitioned to a lateral position on a well-padded pegboard. And an axillary roll was placed. The head was in neutral position. The non-operative down leg was well-padded with SCD and SIERRA hose in place. The arms were supported and padded to protect from any undue pressure on the bony prominences and nerves. Well-padded anterior and posterior pelvic and chest posts were secured in order to maintain a stable position of the pelvis. This was placed so that the pelvis was perpendicular to the floor. The body was in line with the pelvis. Once it was felt that we had protected all the bony prominences and the patient was well secured with a safety belt as well, the leg was pre-scrubbed with alcohol, prepped and draped in a standard sterile fashion. A standard anterior lateral hip incision was marked out over the greater trochanter. Ioban drapes were then placed. The skin incision was then made. Sharp dissection with a scalpel utilizing cautery for hemostasis was carried out down to the gluteus and iliotibial band fascia. This was split in line with the skin incision. The greater trochanter bursa was excised. The anterior and posterior margins of the abductor tendon were identified. The anterior 1/3 of the tendon was tagged and reflected off the greater trochanter leaving a sleeve of tendon for repair at the completion of the case. This exposed the underlying hip joint capsule. An inverted T-type capsulotomy was made extending this up to the brim of the acetabulum. We encountered a hematoma at this point confirming an acute fracture as well as noted displacement of the femoral neck fracture. Using Justin retractors to assist with elevation of the soft tissues off the anterior, superior, and inferior aspects of the femoral neck, the hip was then placed in a figure 4 position and the femoral neck cleanup cut was then made. With the leg in an externally rotated and adducted position, the cutting flag was utilized in order to olga for a standard femoral neck cut approximately a fingerbreadth above the level of the lesser trochanter. This was done while protecting the surrounding soft tissues with Justin retractors. The femoral head was then removed and sized for guidance on the size of the bipolar head. It was noted that there was no significant loss of articular cartilage on both the femoral head and weightbearing portions of the acetabulum. We then returned the leg to the table and turned our attention to the acetabulum. While protecting the surrounding soft tissues, the labrum and remaining tissue in the fovea were excised using a scalpel and cautery. This was then protected with a sponge while we returned our attention to the femur. With the leg in a figure 4 position utilizing Justin retractors for soft tissue protection, a box cutting osteotome, followed by Charnley awl, followed by serial broaches were utilized in order to prepare the femur. It was found that a size 2 broach gave good axial and rotational stability. The proximal femur was visualized to ensure that there were no signs of fracture. A series of heads were trialed. It was found that a 43 mm + 1.5 mm femoral head gave good overall stability. There is minimal longitudinal instability. With the leg in the position of sleep the femoral head was well covered. Hip range of motion was able to reach full extension and external rotation to greater than 75 degrees prior to impingement along the posterior acetabulum. The hip was able to be flexed to greater than 90 degrees with internal rotation greater than 60 degrees prior to anterior impingement. The limb lengths were near equal based on comparison to the contralateral side. At this point was felt this was the appropriately sized femoral components as well as neck and femoral head. The trial implants were removed. A canal cement plug was placed distally and the canal was thoroughly irrigated using pulsatile vacuum brush device. The canal was then thoroughly dried with a suction device and canal sponge. Cement was vacuum mixed per the in service education teacher' s instructions and placed into a cement gun. Cement was then placed in a dry irrigated femur and a moderate cementing technique using a pressurizing device. The stem was then placed in the appropriate version compared to her [place] anatomy and held in place while the cement cured and the extruded cement was removed. Once the cement was fully cured we ensured that the stem was stable and that there were no signs of fracture. The extruded cement was removed, and the joint and the capsule were thoroughly evaluated to ensure there are no cement fragments. Once was felt that we adequately removed the extra cement and that the joint was prepared for final implants, the final femoral bipolar head was then impacted in the place. The hip was then reduced and seated completely. The capsule was repaired with interrupted #1 Vicryl. The abductor tendon was repaired to the greater trochanter utilizing #5 Ethibond through drill holes. This was oversewn with #1 Vicryl. The fascia was closed with interrupted #1 Vicryl. The wounds were thoroughly irrigated as we closed in layers. The deep fat layers were closed with 0 Vicryl and the dermis was approximated with interrupted 3-0 Vicryl. The skin was closed with a running subcuticular 4-0 monocryl and kasandra. All sponge, needle, blade, and instrument counts were correct prior to closing the wounds. Sterile dressings consisting of Xeroform, 4 x 4's, ABD, and tape were applied. The patient was awoken and transferred to her hospital bed and then to the postanesthesia care unit in stable condition. Postoperative condition: The plan is to return to the medical/surgical inpatient floor postoperatively. Postoperatively 24 hours of IV antibiotics, pain control, physical therapy, occupational therapy, and medical comanagement will be utilized. Patient will be weightbearing as tolerated with anterior hip precautions. Postoperative films will be obtained in the recovery room. Results and Findings: Lab Pending Results 01/13/18 00:37: WBC Cancelled, Corrected WBC (auto) Cancelled, RBC Cancelled, Hgb Cancelled, Hct Cancelled, MCV Cancelled, MCH Cancelled, MCHC Cancelled, RDW Cancelled, Plt Count Cancelled, MPV Cancelled 01/13/18 11:11: WBC 7.6, RBC 2.91 L, Hgb 8.0 L, Hct 25.4 L, MCV 87.3, MCH 27.1, MCHC 31.1 L, RDW 14.7 H, Plt Count 214, MPV 11.6, Immature Gran % (Auto) 0.40, Immature Gran # (Auto) 0.03, Neutrophils % 65.9, Lymphocytes % 22.2, Monocytes % 9.2 H, Eosinophils % 1.8, Basophils % 0.5, Nucleated RBC % 0.0, Neutrophils # 5.0, Lymphocytes # 1.69, Monocytes # 0.7, Eosinophils # 0.1, Absolute Basophils 0.0 01/13/18 11:11: PT 10.1, INR (Anticoag Therapy) 1.01, PTT (Giorgio) 24.3 01/13/18 11:11: Sodium 143 H, Plasma Sodium 144 H, Potassium 4.5, Chloride 108 H , Carbon Dioxide 23.4 L, Anion Gap 16.1 H, BUN 41 H, Creatinine 2.11 H, Est GFR (Non-Af Amer) 24 L, BUN/Creatinine Ratio 19.4, Random Glucose 144 H, Calcium 8.5 , Calcium Adj for Albumin 8.9, Total Bilirubin 0.3, AST 18, ALT 21, Alkaline Phosphatase 112, Total Protein 7.0, Albumin 3.1 L 01/13/18 12:12: Blood Type A Positive, Antibody Screen Negative, Crossmatch See Detail 01/13/18 12:22: Urine Color Yellow, Urine Appearance Clear, Urine pH 7.0, Ur Specific [place] 1.015, Urine Protein 30 H, Urine Glucose (UA) Negative, Urine Ketones Negative, Urine Blood 50 H, Urine Nitrate Negative, Urine Bilirubin Negative, Prot Sulfosalicylic Acd 1+, Urine Urobilinogen Normal, Ur Leukocyte Esterase Negative, Urine RBC 0-5, Urine WBC 0-5, Ur Epithelial Cells None seen, Urine Bacteria None seen, Urine Culture Comments No culture indicated 01/14/18 00:35: Hgb 10.5 L, Hct 32.5 L 01/14/18 05:20: WBC 7.0, RBC 4.14 L, Hgb 11.4 L, Hct 36.2 L, MCV 87.4, MCH 27.5 , MCHC 31.5 L, RDW 14.6 H, Plt Count 188, MPV 11.4 01/14/18 05:20: Sodium 145 H, Plasma Sodium 145 H, Potassium 5.0 H, Chloride 110 H, Carbon Dioxide 27.1, Anion Gap 12.9, BUN 41 H, Creatinine 2.32 H, Est GFR (Non-Af Amer) 22 L, BUN/Creatinine Ratio 17.7, Random Glucose 124 H, Calcium 8.3 01/15/18 05:31: WBC 8.5 D, RBC 3.71 L, Hgb 10.3 L, Hct 32.6 L, MCV 87.9, MCH 27.8, MCHC 31.6 L, RDW 14.2 H, Plt Count 172, MPV 11.7 01/15/18 05:31: Sodium 140, Plasma Sodium 141, Potassium 4.5, Chloride 107 H, Carbon Dioxide 24.1, Anion Gap 13.4, BUN 34 H, Creatinine 2.00 H, Est GFR (Non- Af Amer) 26 L, BUN/Creatinine Ratio 17.0, Random Glucose 155 H, Calcium 7.9 01/16/18 05:46: WBC 6.9, RBC 3.48 L, Hgb 9.7 L, Hct 30.6 L, MCV 87.9, MCH 27.9, MCHC 31.7 L, RDW 14.3 H, Plt Count 161, MPV 11.8 01/16/18 05:46: Sodium 136, Plasma Sodium 136, Potassium 4.2, Chloride 106, Carbon Dioxide 23.3 L, Anion Gap 10.9, BUN 36 H, Creatinine 2.10 H, Est GFR (Non -Af Amer) 25 L, BUN/Creatinine Ratio 17.1, Random Glucose 106 D, Calcium 8.0 Discharge Location: Other - [facility] Disposition: SNF Condition: Stable Level of Care: SNF Discharge Activity: Weight bearing - with anterior hip precautions Discharge Diet: Consistent carbs, Low salt Prison Therapy: Physicial Therapy, Occupation Therapy Referrals: Fan Murillo MD [Primary Care Provider] - Additional Patient Instructions (free text): -Please make TCM appointment unless intermediate discharge. Thank you! Brianna @ [phone]. Dr Peck to follow at intermediate. Maintain dressing in place, can change dressing every 3-5 days PRN, replace with sterile gauze and tape Wash the legs with soap and water daily and place tubigrips and keep elevated while not ambulating. WBAT with assistance PRN, anterior precautions PT/OT progress as tolerated F/U with ortho in 10-14 days Lovenox for 4 weeks, followed by 325mg ASA for 4 weeks. Prescriptions (Any new or edited meds): Aspirin [Aspirin Enteric Coated] 81 mg PO DAILY #30 tablet. Aspirin 325 mg PO DAILY 28 Days #28 tablet oxyCODONE HCL/ACETAMINOPHEN [Percocet 5 MG/325 MG] 1 - 2 tab PO Q4H PRN #50 tab PRN Reason: Severe Pain (Pain Scale 7-10) Complete Home Medications List: Complete Home Medication List: Levothyroxine Sodium [Synthroid] 75 mcg PO DAILY@0700 #60 tab 05/05/16 Insulin Glargine,Hum.rec.anlog [Lantus] 12 units SC DAILY 02/05/17 Metoprolol Succinate [Toprol Xl] 50 mg PO DAILY #30 tab 07/27/17 Multivitamin/Iron/Folic Acid [Certagen] 1 tab PO DAILY@1200 tab 07/27/17 blood sugar diagnostic strips See Dose Instructions .ROUTE .MEDSUPPLY #20 ea citalopram 10 mg tablet 10 mg PO DAILY 12/07/17 furosemide 40 mg tablet 80 mg PO DAILY tab 12/07/17 insulin syringe with safety needle 1 mL 31 gauge x 16" See Dose Instructions .ROUTE .MEDSUPPLY #100 ea 12/07/17 lisinopril 10 mg tablet 10 mg PO DAILY 12/07/17 Acetaminophen [Tylenol] 1,000 mg PO Q6H PRN tablet 01/17/18 Aspirin 325 mg PO DAILY 28 Days #28 tablet 01/17/18 Aspirin [Aspirin Enteric Coated] 81 mg PO DAILY #30 tablet. 01/17/18 Enoxaparin Sodium [Lovenox] 30 mg SC Q24H 28 Days #28 disp.syrin 01/17/18 Nystatin [Mycostatin Powder] 1 appl TP BID btl 01/17/18 Sennosides/Docusate Sodium [Senokot-S] 2 tab PO HS tablet 01/17/18 oxyCODONE HCL/ACETAMINOPHEN [Percocet 5 MG/325 MG] 1 - 2 tab PO Q4H PRN #50 tab 01/17/18
[2018-01-17] MEDS: CITALOPRAM HYDROBROMIDE 10 MG TABLET PO SCH (09:23)
[2018-01-17] MEDS: METOPROLOL SUCCINATE 50 MG TABLET.SA PO SCH (09:23)
[2018-01-17] MEDS: LEVOTHYROXINE SODIUM 75 MCG TABLET PO SCH (09:24)
[2018-01-17] MEDS: NYSTATIN 15 APPL BTL TP SCH (09:24)
[2018-01-17] MEDS: INSULIN GLARGINE,HUM.REC.ANLOG 100 UNITS/ML VIAL SC SCH (09:29)
[2018-01-17] MEDS ORDERED: MORPHINE SULFATE 2 MG/ML DISP.SYRIN IV PRN (09:45)
[2018-01-17 10:06] VITALS: BP 170/62
== END 2018-01-17 11:20 | DRG 470 ==
LOC: ER 09:39 → MS 11:52
PROVIDERS: ADMIT Internal Medicine; ATTEND Internal Medicine
CPT/HCPCS: 36415; 51702; 70450; 71010; 71045; 73502; 80048; 80053; 81001; 85014; 85018; 85025; 85027; 85610; 85730; 86850; 86900; 87081; 93005; 93971; 96374; 97110; 97116; 97161; 97166; 97530; 97535; 99212; 99214; 99285; J2405; P9016

== ENCOUNTER 2018-06-30 17:41 | Inpatient (IN) ==
[2018-06-30] MEDS ORDERED: ONDANSETRON HCL/PF 2 MG/ML VIAL IV ONE (19:45)
--- NOTE | 2018-06-30 19:54 | ERNOTE ---
<Bill Pastrana - Last Filed: 06/30/18 19:48> Medical Problem HPI - Narrative Date of Service: 06/30/18 - General Chief Complaint: Nausea/Vomiting Time Seen by Provider: 06/30/18 19:34 Source: patient, family - Immun/Allergies/Home Medications Immunizations: IMMUNIZATION HX Immunizations Up to Date Yes History of Influenza Vaccine No Hx Pneumococcal Vaccination No Allergies/Adverse Reactions: Allergies No Known Allergies Allergy (Unverified 06/10/18 17:38) Home Medications: HOME MEDICATIONS Levothyroxine Sodium [Synthroid] 75 mcg PO DAILY@0700 #60 tab 05/05/16 [Last Taken Unknown] Insulin Glargine,Hum.rec.anlog [Lantus] 12 units SC DAILY 02/05/17 [Last Taken Unknown] Metoprolol Succinate [Toprol Xl] 50 mg PO DAILY #30 tab 07/27/17 [Last Taken Unknown] Multivitamin/Iron/Folic Acid [Certagen] 1 tab PO DAILY@1200 tab 07/27/17 [Last Taken Unknown] blood sugar diagnostic strips See Dose Instructions .ROUTE .MEDSUPPLY #20 ea 12/07/17 [Last Taken Unknown] citalopram 10 mg tablet 10 mg PO DAILY 12/07/17 [Last Taken Unknown] furosemide 40 mg tablet 80 mg PO DAILY tab 12/07/17 [Last Taken Unknown] lisinopril 10 mg tablet 10 mg PO DAILY 12/07/17 [Last Taken Unknown] Acetaminophen [Tylenol] 1,000 mg PO Q6H PRN tab 01/17/18 [Last Taken Unknown] Aspirin [Aspirin Enteric Coated] 81 mg PO DAILY #30 tablet. 01/17/18 [Last Taken Unknown] Nystatin [Mycostatin Powder] 1 appl TOPICAL BID btl 01/17/18 [Last Taken Unknown] Sennosides/Docusate Sodium [Senokot-S] 2 tab PO HS tab 01/17/18 [Last Taken Unknown] insulin syringe with safety needle 1 mL 31 gauge x 10/03" See Dose Instructions .ROUTE .MEDSUPPLY #100 ea 06/11/18 [Last Taken Unknown] hydrocodone 5 mg-acetaminophen 325 mg tablet 2 tab PO Q6H PRN #60 tab 06/26/18 [Last Taken Unknown] - History of Present History Narrative: This patient is a 72-year-old female who is here with her son, who is her silver brazer, for vomiting. She began vomiting about noon yesterday. She has thrown up 5 or 10 times. Her son said that she has not had a good appetite for couple days before that. She is having upper abdominal pain. She has had no fever. She has had no diarrhea. Her last bowel movement was yesterday. She had a recent hip replacement and pelvic fracture. Her tongue is black. Her son has given her some Pepto-Bismol. Review of Systems - Review of Systems Constitutional: Absent: fever, weight loss EYE: Absent: blurred vision, double vision ENT: Present: nasal drainage. Absent: ear pain, nose congestion, sore throat Respiratory: Absent: shortness of breath, cough Cardiology: Absent: chest pain, palpitations, syncope Gastrointestinal/Abdominal: Present: See HPI Genitourinary: Absent: frequency, pain, dysuria, hematuria Musculoskeletal: Present: See HPI, joint pain Skin: Absent: rash Neurological: Present: anxiety. Absent: depressed, headache, dizziness/light-headedness Endocrine: Present: no symptoms reported Hematologic/Lymphatic: Present: other - No active bleeding Psych: Present: anxiety. Absent: depressed Medical History (Last Reviewed 06/30/18 @ 19:51 by Bill Pastrana MD) GERD (gastroesophageal reflux disease) (Chronic) Onset Date: ~01/29/12 Diabetes mellitus type 2, controlled, without complications (Chronic) Onset Date: ~1993 Hip fracture Onset Date: 01/13/18 left History of pneumonia Hx of atrial fibrillation, no current medication HTN (hypertension) Onset Date: Unknown Osteoarthritis involving multiple joints on both sides of body Onset Date: ~01/29/12 Ankle fracture Onset Date: ~1992 RT Cerebrovascular disease Onset Date: ~2003 expressive aphasia Deficient knowledge of cholecystectomy Onset Date: ~1991 H/O echocardiogram Onset Date: ~07/17/17 mild global hypokinesis LV: EF 40% moderate concentric LVH; Pulmonary htn; trace tricuspid regurgitation; RV systolic pressure elevated at 47mmhg Surgical History: Surgical History (Last Reviewed 06/30/18 @ 19:51 by Bill Pastrana MD) S/P hip hemiarthroplasty Onset Date: ~01/14/18 l Cataract Onset Date: ~[address] Yang H/O lumpectomy Onset Date: Unknown LT breast History of tonsillectomy Onset Date: Unknown as child Family History: Family History (Last Reviewed 06/10/18 @ 18:44 by Kelsie Shrestha NP) Father No problems noted. Mother , 77- breast CA Cancer Social History: Preferred Language Mozambican Smoking Status Never smoker Abuse History No History of abuse Psych History No pertinent hx (Last Updated 03/26/18 @ 13:56 by Fan Murillo MD) No Social History Section defined Physical Exam - Physical Exam General Appearance: Present: alert, no apparent distress, cachetic Head Exam: Present: normal inspection, no evidence of injury Eye Exam: Normal inspection: bilateral Ears, Nose, Throat: Present: normal ENT inspection, other - Dry oropharynx with black tongue. Absent: abnormal TM (R), abnormal TM (L), cerumen impaction Neck: Present: normal inspection, nontender, supple. Absent: lymphadenopathy (R), lymphadenopathy (L) Respiratory: Present: no respiratory distress, normal breath sounds, no accessory muscle use, lungs clear Cardiovascular/Chest: Present: regular rate, rhythm, no murmur Gastrointestinal/Abdominal: Present: normal bowel sounds, nondistended, soft, no organomegaly, tenderness - Upper abdominal tenderness to palpation.. Absent: guarding, rebound Back Exam: Present: normal inspection Extremity Exam: Present: normal inspection, normal range of motion Neurological Exam: Present: alert, other - Choreiform movements. Labile affect. Skin Exam: Present: normal color, warm/dry Progress - Vital Signs Patient's Vital Signs:: I have reviewed the patient's vital signs. Vital Signs: Vital Signs 06/30/18 17:47 06/30/18 19:27 Temperature 36.1 C Pulse Rate 95 87 Respiratory Rate 18 14 Blood Pressure 163/52 H 170/61 H O2 Sat by Pulse Oximetry 93 100 - Progress/Reassessment Chief Complaint: Nausea/Vomiting - Transfer of Care Physician Sign Out: Bill Pastrana Receiving Physician: Carlito Terry Pending Results: CT/MRI results, Labs Expected Disposition: Discharge Departure Clinical Impression: Vomiting, Abdominal pain, Hyperglycemia due to type 2 diabetes mellitus, Acute hyperkalemia, Urinary tract infection - Departure Disposition: Still a patient Condition: Serious Referrals: Fan Murillo MD [Primary Care Provider] - <Carlito Terry - Last Filed: 06/30/18 23:56> Medical Problem HPI - Immun/Allergies/Home Medications Immunizations: IMMUNIZATION HX Immunizations Up to Date Yes History of Influenza Vaccine Yes Hx Pneumococcal Vaccination No Medical History (Last Reviewed 06/30/18 @ 19:51 by Bill Pastrana MD) GERD (gastroesophageal reflux disease) (Chronic) Onset Date: ~01/29/12 Diabetes mellitus type 2, controlled, without complications (Chronic) Onset Date: ~1993 Hip fracture Onset Date: 01/13/18 left History of pneumonia Hx of atrial fibrillation, no current medication HTN (hypertension) Onset Date: Unknown Osteoarthritis involving multiple joints on both sides of body Onset Date: ~01/29/12 Ankle fracture Onset Date: ~1992 RT Cerebrovascular disease Onset Date: ~2003 expressive aphasia Deficient knowledge of cholecystectomy Onset Date: ~1991 H/O echocardiogram Onset Date: ~07/17/17 mild global hypokinesis LV: EF 40% moderate concentric LVH; Pulmonary htn; trace tricuspid regurgitation; RV systolic pressure elevated at 47mmhg Surgical History: Surgical History (Last Reviewed 06/30/18 @ 19:51 by Bill Pastrana MD) S/P hip hemiarthroplasty Onset Date: ~01/14/18 l Cataract Onset Date: ~2011 [address] Yang H/O lumpectomy Onset Date: Unknown LT breast History of tonsillectomy Onset Date: Unknown as child Family History: Family History (Last Reviewed 06/10/18 @ 18:44 by Kelsie Shrestha NP) Father No problems noted. Mother , 77- breast CA Cancer Social History: Preferred Language Mozambican Do you have any temple or No cultural preference? Smoking Status Never smoker Abuse History No History of abuse Psych History No pertinent hx Alcohol Use none Drug Use none (Last Updated 03/26/18 @ 13:56 by Fan Murillo MD) No Social History Section defined Progress - Date and Time Seen: Date and Time: 06/30/18 23:54 patient improved somewhat case discussed with dr santos who accepts patient for admission - Results and Orders Patient's Lab Results:: I have reviewed the patient's lab results. - Vital Signs Vital Signs: Vital Signs 06/30/18 17:47 06/30/18 19:27 06/30/18 20:00 Temperature 36.1 C Pulse Rate 95 87 82 Respiratory Rate 18 14 14 Blood Pressure 163/52 H 170/61 H 147/72 O2 Sat by Pulse Oximetry 93 100 99 06/30/18 20:26 06/30/18 21:26 06/30/18 22:17 Temperature Pulse Rate 86 88 96 Respiratory Rate 16 16 16 Blood Pressure 145/52 149/58 O2 Sat by Pulse Oximetry 99 100 96 06/30/18 22:48 06/30/18 23:24 Temperature Pulse Rate 95 88 Respiratory Rate 16 16 Blood Pressure 148/61 133/60 O2 Sat by Pulse Oximetry 96 98 - EKG EKG #1 EKG: NSR - CT/Ultrasound CT/Ultrasound Narrative: ct abdomen, no acute process - Progress/Reassessment Progress:: Improved - Transfer of Care Expected Disposition: Admit, Discharge Plan - Plan Plan: to admit to hosptal
[2018-06-30] MEDS: MORPHINE SULFATE 4 MG/ML SYRG IV PRN (20:08)
[2018-06-30 20:12] LABS: Hematocrit 35.9 % (37.0-47.0); Hemoglobin 10.7 gm/dL (12.5-16.0); Mean Cell Volume 87.8 fl (78-100); Mean Corpuscular Hemoglobin 26.2 pg (27-31); Mean Corpuscular Hgb Conc 29.8 g/dl (32-36); Mean Platelet Volume 11.8 fl (8-12.5); Neutrophil % 82.2 % (42-75.0); Platelet Count 304 K/mm3 (150-450); Red Blood Count 4.09 M/mm3 (4.2-5.4); White Blood Count 9.7 K/mm3 (4.0-10.5)
[2018-06-30] MEDS ORDERED: DIATRIZOATE MEGLUMINE, SODIUM 30 ML BTL PO ONE (20:15)
[2018-06-30 20:26] LABS: Albumin * 2.8 gm/dl (3.4-5.0); Anion Gap 17.6 mmol/L (6.8-13.8); BUN/Creatinine Ratio 37.3 (9.0-21.6); Bilirubin, Total 0.1 mg/dL (0.0-1.1); Ca. Corrected For Albumin 10.4 mg/dL (8.4-10.2); Calcium * 9.8 mg/dL (7.9-10.9); Carbon Dioxide 25.2 mmol/L (24-32.6); Total Protein 8.3 gm/dL (6.2-8.2)
[2018-06-30 20:50] LABS: Potassium 6.8 mmol/L (3.4-4.6)
[2018-06-30] MEDS ORDERED: NORMAL SALINE 1,000 ML IV ONE ×2 (20:52→22:55)
[2018-06-30] MEDS ORDERED: INSULIN REGULAR, HUMAN 100 UNITS/ML VIAL IV ONE (20:53)
[2018-06-30] MEDS ORDERED: ALBUTEROL SULFATE 2.5 MG/0.5 ML VIAL.NEB IH ONE (21:14)
[2018-06-30] MEDS ORDERED: CALCIUM GLUCONATE 4.65 MEQ/10 ML VIAL IV ONE (21:15)
[2018-06-30 22:50] LABS: Urine Bilirubin Negative (NEGATIVE); Urine Ketone Negative (NEGATIVE); Urine Protein 15 mg/dL (NEGATIVE); Urine Urobilinogen Normal (NORMAL); Urine pH 6.5 pH (5.0-7.0)
[2018-06-30] MEDS ORDERED: SODIUM POLYSTYRENE SULFON/SORB 15 G/60 ML BTL PO ONE (23:08)
[2018-06-30 23:15] LABS: Urine Appearance Slightly Cloudy (CLEAR); Urine Bacteria 4+; Urine Blood 5 /ul (NEGATIVE); Urine Color Yellow; Urine Nitrite Positive (NEGATIVE); Urine RBC 0-5 /hpf (0-5)
[2018-06-30] MEDS ORDERED: cefTRIAXone SODIUM 1,000 MG/100 ML BAG IV ONE (23:36)
[2018-06-30] MEDS: INSULIN REGULAR, HUMAN 100 UNITS in NORMAL SALINE 100 ML IV PRN ×2 (23:41)
[2018-07-01] MEDS: MORPHINE SULFATE 4 MG/ML SYRG IV PRN (04:52)
[2018-07-01 05:49] LABS: Hematocrit 30.5 % (37.0-47.0); Hemoglobin 9.4 gm/dL (12.5-16.0); Mean Cell Volume 87.1 fl (78-100); Mean Corpuscular Hemoglobin 26.9 pg (27-31); Mean Corpuscular Hgb Conc 30.8 g/dl (32-36); Mean Platelet Volume 11.8 fl (8-12.5); Neutrophil # 7.5 K/mm3 (1.3-6.0); Neutrophil % 72.5 % (42-75.0); Platelet Count 250 K/mm3 (150-450); Red Cell Distribution Width 12.8 % (11.5-14.0); White Blood Count 10.4 K/mm3 (4.0-10.5)
[2018-07-01] MEDS: INSULIN REGULAR, HUMAN 100 UNITS in NORMAL SALINE 100 ML IV PRN ×2 (05:52)
[2018-07-01 05:56] LABS: BUN/Creatinine Ratio 36.7 (9.0-21.6); Carbon Dioxide 25.4 mmol/L (24-32.6); Estimated Creat Clear 15.1; Potassium 5.4 mmol/L (3.4-4.6)
[2018-07-01] MEDS: NORMAL SALINE 1,000 ML IV PRN ×4 (06:03→18:47)
[2018-07-01] MEDS ORDERED: POLYETHYLENE GLYCOL 3350 119 GM BTL PO PRN (08:32)
[2018-07-01] MEDS ORDERED: NYSTATIN 15 APPL BTL TP PRN (08:32)
[2018-07-01] MEDS: ENOXAPARIN SODIUM 30 MG/0.3 ML SYRG SC SCH (09:14)
[2018-07-01] MEDS: ASPIRIN 81 MG TABLET.DR PO SCH (09:15)
[2018-07-01] MEDS: LISINOPRIL 10 MG TABLET PO SCH (09:15)
[2018-07-01] MEDS: METOPROLOL SUCCINATE 50 MG TABLET.SA PO SCH (09:15)
[2018-07-01] MEDS: CITALOPRAM HYDROBROMIDE 10 MG TABLET PO SCH (09:15)
[2018-07-01] MEDS: LEVOTHYROXINE SODIUM 75 MCG TABLET PO SCH (09:15)
[2018-07-01] MEDS: HYDROcodone/ACETAMINOPHEN 1 EACH TABLET PO PRN (09:17)
--- NOTE | 2018-07-01 10:33 | HP ---
Chief Complaint - Chief Complaint Date of Service: 07/01/18 Time of Service: 20:00 Chief Complaint: Weakness, hyperglycemia, intractable nausea and vomiting History of Present Illness: Vianey Young is a 72-year-old female who lives at home and is cared for by a relative. She developed intractable nausea and vomiting and vomited 5- 10 times. She was brought to the hospital and evaluated and found to be markedly hyperglycemic with blood sugar over 850. She was not ketotic or acidotic. She was started on IV fluids and with fluids alone dropped her blood sugar 200 500 and then an insulin drip was started through the night. This morning her blood sugar is in the 200s and the insulin drip has been discontinued. Her laboratory work reflects dehydration with hypernatremia and hyperkalemia and elevated BUN/creatinine and EGFR is decreased. All parameters have improved some through the night. Her hemoglobin has dropped from 10.4 g on admission to ER to 9.7 g this morning. She has been afebrile. Medical History (Last Reviewed 07/01/18 @ 01:29 by Brianna Conley RN) GERD (gastroesophageal reflux disease) (Chronic) Onset Date: ~01/29/12 Diabetes mellitus type 2, controlled, without complications (Chronic) Onset Date: ~1993 Hip fracture Onset Date: 01/13/18 left History of pneumonia Hx of atrial fibrillation, no current medication HTN (hypertension) Onset Date: Unknown Osteoarthritis involving multiple joints on both sides of body Onset Date: ~01/29/12 Ankle fracture Onset Date: ~1992 RT Cerebrovascular disease Onset Date: ~2003 expressive aphasia Deficient knowledge of cholecystectomy Onset Date: ~1991 H/O echocardiogram Onset Date: ~07/17/17 mild global hypokinesis LV: EF 40% moderate concentric LVH; Pulmonary htn; trace tricuspid regurgitation; RV systolic pressure elevated at 47mmhg Surgical History: Surgical History (Last Reviewed 07/01/18 @ 01:29 by Brianna Conley RN) S/P hip hemiarthroplasty Onset Date: ~01/14/18 l Cataract Onset Date: ~[address] Yang H/O lumpectomy Onset Date: Unknown LT breast History of tonsillectomy Onset Date: Unknown as child Family History: Family History (Last Reviewed 07/01/18 @ 01:29 by Brianna Conley RN) Father No problems noted. Mother , 77- breast CA Cancer Social History: Patient Lives/Resources Home Utilized Occupation retired Preferred Language Chinese Do you have any anabaptism or No cultural preference? Smoking Status Former smoker Have you smoked in the past 12 No months Abuse History No History of abuse Psych History No pertinent hx Alcohol Use none Drug Use none (Last Updated 03/26/18 @ 13:56 by Fan Murillo MD) No Social History Section defined Review Of Systems (GEN) - Review of Systems Generalized/Overall Review: Present: Weakness, Malaise. Absent: Chills, Fever EENTM: Present: No Symptoms Reported Respiratory: Present: No Symptoms Reported Cardiac: Present: No Symptoms Reported Abdominal: Present: Nausea, Vomiting, Abdominal Pain Genitourinary: Present: No Symptoms Reported Musculoskeletal: Present: Other - Complains of pain in both legs Neurological: Present: No Symptoms Reported Skin: Present: No Symptoms Reported Endocrine: Present: No Symptoms Reported Misc: All systems neg except as marked Immunizations: IMMUNIZATION HX Immunizations Up to Date Yes History of Influenza Vaccine Yes Hx Pneumococcal Vaccination No Allergies/Adverse Reactions: Allergies Allergy/AdvReac Type Severity Reaction Status Date / Time No Known Allergies Allergy Unverified 07/01/18 02:11 Home Medications: HOME MEDICATIONS Levothyroxine Sodium [Synthroid] 75 mcg PO DAILY@0700 #60 tab 05/05/16 [Last Taken Unknown] Insulin Glargine,Hum.rec.anlog [Lantus] 12 units SC HS 02/05/17 [Last Taken Unknown] Metoprolol Succinate [Toprol Xl] 50 mg PO DAILY #30 tab 07/27/17 [Last Taken Unknown] blood sugar diagnostic strips See Dose Instructions .ROUTE .MEDSUPPLY #20 ea 12/07/17 [Last Taken Unknown] citalopram 10 mg tablet 10 mg PO DAILY 12/07/17 [Last Taken Unknown] furosemide 40 mg tablet 80 mg PO DAILY tab 12/07/17 [Last Taken Unknown] lisinopril 10 mg tablet 10 mg PO DAILY 12/07/17 [Last Taken Unknown] Aspirin [Aspirin Enteric Coated] 81 mg PO DAILY #30 k[place]. 01/17/18 [Last Taken Unknown] insulin syringe with safety needle 1 mL 31 gauge x 5/16" See Dose Instructions .ROUTE .MEDSUPPLY #100 ea 06/11/18 [Last Taken Unknown] hydrocodone 5 mg-acetaminophen 325 mg tablet 2 tab PO Q6H PRN #60 tab 06/26/18 [Last Taken Unknown] Multivitamin/Iron/Folic Acid [Certagen] 1 tab PO DAILY 07/01/18 [Last Taken Unknown] Nystatin [Mycostatin Powder] 1 appl TOPICAL BID PRN 07/01/18 [Last Taken Unknown] Polyethylene Glycol 3350 [Miralax] 17 gm PO DAILY PRN 07/01/18 [Last Taken Unknown] Exam - Exam Vital Signs: Vital Signs - Last Taken Temp 36.8 C 07/01/18 07:20 Pulse 82 07/01/18 09:15 Resp 12 07/01/18 07:20 BP 137/60 07/01/18 09:15 Pulse Ox 99 07/01/18 07:20 Eye Exam: bilateral eye: normal inspection, PERRL, EOMI Neck: Present: non-tender Back Exam: Present: normal inspection, no CVA tenderness, no vertebral tenderness Respiratory: Present: chest non-tender, lungs clear, normal breath sounds, no respiratory distress, no accessory muscle use Cardiovascular/Chest: Present: normal peripheral pulses, regular rate, rhythm, no chest tenderness, no edema, no gallop, no JVD, no murmur, no rub Peripheral Pulses: carotid (R): 2+, carotid (L): 2+, dorsalis-pedis (R): 0, dorsalis-pedis (L): 0, radial (R): 2+, radial (L): 2+ Abdomen: Present: Normal bowel sounds, soft, tender - In the midepigastrium, guarding, negative Pollock sign. 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 Absent: oriented x 3 Appearance: Present: appropriate appearance, disheveled, impaired insight Eye contact: Present: cooperative, good eye contact. Absent: normal speech Thoughts: Present: normal thought pattern, no apparent hallucination Diagnostic Studies: Abnormal Lab Results 06/30/18 06/30/18 06/30/18 Range/Units 20:10 20:10 22:40 RBC 4.09 L (4.2-5.4) M/mm3 Hgb 10.7 L (12.5-16.0) gm/dL Hct 35.9 L (37.0-47.0) % MCH 26.2 L (27-31) pg MCHC 29.8 L (32-36) g/dl Immature Gran % (Auto) 0.50 H (0.001-0.429) % Immature Gran # (Auto) 0.05 H (0.000-0.0310) K/mm3 Neutrophils % 82.2 H (42-75.0) % Lymphocytes % 10.2 L (20-51) % Monocytes % (0.0-9) % Neutrophils # 8.0 H (1.3-6.0) K/mm3 Lymphocytes # 0.99 L (1.5-3.5) k/mm3 HCO3 19.6 L (21.0-28.0) mmol/L Base Excess -5.8 L (-2.0-3.0) mmol/L ABG pH 7.33 L (7.35-7.45) Sodium (132-142) mmol/L Plasma Sodium 146 H (130-142) mmol/L Potassium 6.8 H* D (3.4-4.6) mmol/L Chloride (97-106) mmol/L Anion Gap 17.6 H (6.8-13.8) mmol/L BUN 104 H D (3-23) mg/dL Creatinine 2.79 H D (0.4-1.4) mg/dL Est GFR (Non-Af Amer) 18 L D (60-130) mL/min BUN/Creatinine Ratio 37.3 H (9.0-21.6) Random Glucose 808 H* (70-110) mg/dL Calcium Adj for Albumin 10.4 H (8.4-10.2) mg/dL ALT 12 L (19-67) U/L Total Protein 8.3 H (6.2-8.2) gm/dL Albumin 2.8 L (3.4-5.0) gm/dl Urine Protein (NEGATIVE) mg/dL Urine Glucose (UA) (NEGATIVE) mg/dL Urine Blood (NEGATIVE) /ul Urine Nitrate (NEGATIVE) Ur Leukocyte Esterase (NEGATIVE) /ul Urine WBC (0-5) /hpf Urine Bacteria (NONE) 06/30/18 06/30/18 06/30/18 Range/Units 22:40 22:40 22:40 RBC (4.2-5.4) M/mm3 Hgb (12.5-16.0) gm/dL Hct (37.0-47.0) % MCH (27-31) pg MCHC (32-36) g/dl Immature Gran % (Auto) (0.001-0.429) % Immature Gran # (Auto) (0.000-0.0310) K/mm3 Neutrophils % (42-75.0) % Lymphocytes % (20-51) % Monocytes % (0.0-9) % Neutrophils # (1.3-6.0) K/mm3 Lymphocytes # (1.5-3.5) k/mm3 HCO3 (21.0-28.0) mmol/L Base Excess (-2.0-3.0) mmol/L ABG pH (7.35-7.45) Sodium (132-142) mmol/L Plasma Sodium (130-142) mmol/L Potassium 5.5 H (3.4-4.6) mmol/L Chloride (97-106) mmol/L Anion Gap (6.8-13.8) mmol/L BUN (3-23) mg/dL Creatinine (0.4-1.4) mg/dL Est GFR (Non-Af Amer) (60-130) mL/min BUN/Creatinine Ratio (9.0-21.6) Random Glucose 572 H* (70-110) mg/dL Calcium Adj for Albumin (8.4-10.2) mg/dL ALT (19-67) U/L Total Protein (6.2-8.2) gm/dL Albumin (3.4-5.0) gm/dl Urine Protein 15 H (NEGATIVE) mg/dL Urine Glucose (UA) >=1000 H (NEGATIVE) mg/dL Urine Blood 5 H (NEGATIVE) /ul Urine Nitrate Positive H (NEGATIVE) Ur Leukocyte Esterase 75 H (NEGATIVE) /ul Urine WBC 5-10 H (0-5) /hpf Urine Bacteria 4+ H (NONE) 07/01/18 07/01/18 Range/Units 05:15 05:15 RBC 3.50 L (4.2-5.4) M/mm3 Hgb 9.4 L (12.5-16.0) gm/dL Hct 30.5 L (37.0-47.0) % MCH 26.9 L (27-31) pg MCHC 30.8 L (32-36) g/dl Immature Gran % (Auto) (0.001-0.429) % Immature Gran # (Auto) 0.04 H (0.000-0.0310) K/mm3 Neutrophils % (42-75.0) % Lymphocytes % 16.4 L (20-51) % Monocytes % 9.2 H (0.0-9) % Neutrophils # 7.5 H (1.3-6.0) K/mm3 Lymphocytes # (1.5-3.5) k/mm3 HCO3 (21.0-28.0) mmol/L Base Excess (-2.0-3.0) mmol/L ABG pH (7.35-7.45) Sodium 147 H (132-142) mmol/L Plasma Sodium 150 H (130-142) mmol/L Potassium 5.4 H (3.4-4.6) mmol/L Chloride 112 H (97-106) mmol/L Anion Gap 15.0 H (6.8-13.8) mmol/L BUN 83 H (3-23) mg/dL Creatinine 2.26 H D (0.4-1.4) mg/dL Est GFR (Non-Af Amer) 23 L D (60-130) mL/min BUN/Creatinine Ratio 36.7 H (9.0-21.6) Random Glucose 265 H D (70-110) mg/dL Calcium Adj for Albumin (8.4-10.2) mg/dL ALT (19-67) U/L Total Protein (6.2-8.2) gm/dL Albumin (3.4-5.0) gm/dl Urine Protein (NEGATIVE) mg/dL Urine Glucose (UA) (NEGATIVE) mg/dL Urine Blood (NEGATIVE) /ul Urine Nitrate (NEGATIVE) Ur Leukocyte Esterase (NEGATIVE) /ul Urine WBC (0-5) /hpf Urine Bacteria (NONE) Laboratory Results WBC 10.4 K/mm3 (4.0-10.5) 07/01/18 05:15 RBC 3.50 M/mm3 (4.2-5.4) L 07/01/18 05:15 Hgb 9.4 gm/dL (12.5-16.0) L 07/01/18 05:15 Hct 30.5 % (37.0-47.0) L 07/01/18 05:15 MCV 87.1 fl (78-100) 07/01/18 05:15 MCH 26.9 pg (27-31) L 07/01/18 05:15 MCHC 30.8 g/dl (32-36) L 07/01/18 05:15 RDW 12.8 % (11.5-14.0) 07/01/18 05:15 Plt Count 250 K/mm3 (150-450) 07/01/18 05:15 MPV 11.8 fl (8-12.5) 07/01/18 05:15 Immature Gran % (Auto) 0.40 % (0.001-0.429) 07/01/18 05:15 Immature Gran # (Auto) 0.04 K/mm3 (0.000-0.0310) H 07/01/18 05:15 Neutrophils % 72.5 % (42-75.0) 07/01/18 05:15 Lymphocytes % 16.4 % (20-51) L 07/01/18 05:15 Monocytes % 9.2 % (0.0-9) H 07/01/18 05:15 Eosinophils % 1.1 % (0.0-3.0) 07/01/18 05:15 Basophils % 0.4 % (0.0-1.0) 07/01/18 05:15 Nucleated RBC % 0.0 k/mm3 (0-1) 07/01/18 05:15 Neutrophils # 7.5 K/mm3 (1.3-6.0) H 07/01/18 05:15 Lymphocytes # 1.71 k/mm3 (1.5-3.5) 07/01/18 05:15 Monocytes # 1.0 k/mm3 (0.0-1.0) 07/01/18 05:15 Eosinophils # 0.1 k/mm3 (0.0-0.7) 07/01/18 05:15 Absolute Basophils 0.0 k/mm3 (0.0-0.1) 07/01/18 05:15 pCO2 38.3 mmHg (32.0-45.0) 06/30/18 22:40 pO2 102.8 mmHg (83.0-108.0) 06/30/18 22:40 HCO3 19.6 mmol/L (21.0-28.0) L 06/30/18 22:40 Total CO2 20.8 mmol/L (19.0-24.0) 06/30/18 22:40 Base Excess -5.8 mmol/L (-2.0-3.0) L 06/30/18 22:40 ABG pH 7.33 (7.35-7.45) L 06/30/18 22:40 ABG O2 Sat (Measured) 97.4 % (94.0-98.0) 06/30/18 22:40 Sodium 147 mmol/L (132-142) H 07/01/18 05:15 Plasma Sodium 150 mmol/L (130-142) H 07/01/18 05:15 Potassium 5.4 mmol/L (3.4-4.6) H 07/01/18 05:15 Chloride 112 mmol/L (97-106) H 07/01/18 05:15 Carbon Dioxide 25.4 mmol/L (24-32.6) 07/01/18 05:15 Anion Gap 15.0 mmol/L (6.8-13.8) H 07/01/18 05:15 BUN 83 mg/dL (3-23) H 07/01/18 05:15 Creatinine 2.26 mg/dL (0.4-1.4) H D 07/01/18 05:15 Est GFR (Non-Af Amer) 23 mL/min (60-130) L D 07/01/18 05:15 BUN/Creatinine Ratio 36.7 (9.0-21.6) H 07/01/18 05:15 Random Glucose 265 mg/dL (70-110) H D 07/01/18 05:15 Calcium 9.0 mg/dL (7.9-10.9) 07/01/18 05:15 Calcium Adj for Albumin 10.4 mg/dL (8.4-10.2) H 06/30/18 20:10 Total Bilirubin 0.1 mg/dL (0.0-1.1) 06/30/18 20:10 AST 8 U/L (0-48) 06/30/18 20:10 ALT 12 U/L (19-67) L 06/30/18 20:10 Alkaline Phosphatase 139 U/L (50-170) 06/30/18 20:10 Troponin I Less than 0.017 ng/mL (0.00-0.10) 06/30/18 20:25 Total Protein 8.3 gm/dL (6.2-8.2) H 06/30/18 20:10 Albumin 2.8 gm/dl (3.4-5.0) L 06/30/18 20:10 Lipase 350 U/L (73-393) 06/30/18 20:10 Urine Color Yellow 06/30/18 22:40 Urine Appearance Slightly cloudy (CLEAR) 06/30/18 22:40 Urine pH 6.5 pH (5.0-7.0) 06/30/18 22:40 Ur Specific [place] 1.010 SP.GR. (1.005-1.010) 06/30/18 22:40 Urine Protein 15 mg/dL (NEGATIVE) H 06/30/18 22:40 Urine Glucose (UA) >=1000 mg/dL (NEGATIVE) H 06/30/18 22:40 Urine Ketones Negative mg/dL (NEGATIVE) 06/30/18 22:40 Urine Blood 5 /ul (NEGATIVE) H 06/30/18 22:40 Urine Nitrate Positive (NEGATIVE) H 06/30/18 22:40 Urine Bilirubin Negative mg/dl (NEGATIVE) 06/30/18 22:40 Prot Sulfosalicylic Acd Negative mg/dL (0) 06/30/18 22:40 Urine Urobilinogen Normal EU/dl (NORMAL) 06/30/18 22:40 Ur Leukocyte Esterase 75 /ul (NEGATIVE) H 06/30/18 22:40 Urine RBC 0-5 /hpf (0-5) 06/30/18 22:40 Urine WBC 5-10 /hpf (0-5) H 06/30/18 22:40 Ur Epithelial Cells 0-5 /hpf (0-5) 06/30/18 22:40 Urine Bacteria 4+ (NONE) H 06/30/18 22:40 Urine Culture Comments Culture to follow 06/30/18 22:40 Serum Ketones Negative (NEGATIVE) 06/30/18 20:25 Assessment/Plan - Narrative Narrative: 1. Continue rehydration 2. Continue anti-emetics 3. Begin preprandial Humalog insulin and increase at bedtime Lantus to 15 units. See orders. 4. Progress activity as tolerated 5. VTE prophylaxis - Assessment/Plan (1) Intractable nausea and vomiting Problem: Acute (2) Hyperglycemia Problem: Acute (3) Abdominal pain Problem: Acute (4) Peripheral arterial disease Problem: Acute (5) Anemia Problem: Chronic Qualifiers: Anemia type: due to chronic kidney disease Chronic kidney disease stage: stage 4 (severe) Qualified Code(s): N18.4 - Chronic kidney disease, stage 4 (severe); D63.1 - Anemia in chronic kidney disease (6) Chronic renal failure, stage 4 (severe) Problem: Chronic (7) Urinary tract infection Problem: Acute Qualifiers: Urinary tract infection type: acute pyelonephritis Qualified Code(s): N10 - Acute pyelonephritis
[2018-07-01] MEDS ORDERED: NORMAL SALINE 1,000 ML IV PRN (10:35)
[2018-07-01] MEDS: INSULIN LISPRO 100 UNITS/ML VIAL SC SCH ×3 (12:31→20:57)
[2018-07-01] MEDS ORDERED: INSULIN GLARGINE,HUM.REC.ANLOG 100 UNITS/ML VIAL SC SCH (21:00)
[2018-07-02] MEDS: NORMAL SALINE 1,000 ML IV PRN ×3 (03:08→21:31)
[2018-07-02] MEDS: HYDROcodone/ACETAMINOPHEN 1 EACH TABLET PO PRN (05:06)
[2018-07-02 05:47] LABS: Hematocrit 30.7 % (37.0-47.0); Mean Corpuscular Hemoglobin 26.4 pg (27-31); Mean Corpuscular Hgb Conc 29.3 g/dl (32-36); Mean Platelet Volume 11.4 fl (8-12.5); Neutrophil # 7.3 K/mm3 (1.3-6.0); Neutrophil % 77.7 % (42-75.0); Platelet Count 241 K/mm3 (150-450); Red Blood Count 3.41 M/mm3 (4.2-5.4); White Blood Count 9.4 K/mm3 (4.0-10.5)
[2018-07-02 06:04] LABS: Albumin * 2.2 gm/dl (3.4-5.0); Anion Gap 11.6 mmol/L (6.8-13.8); BUN/Creatinine Ratio 30.4 (9.0-21.6); Bilirubin, Total 0.1 mg/dL (0.0-1.1); Ca. Corrected For Albumin 9.7 mg/dL (8.4-10.2); Calcium * 8.6 mg/dL (7.9-10.9); Carbon Dioxide 26.8 mmol/L (24-32.6); Potassium 5.4 mmol/L (3.4-4.6); Total Protein 6.5 gm/dL (6.2-8.2)
[2018-07-02] MEDS: INSULIN LISPRO 100 UNITS/ML VIAL SC SCH ×6 (06:39→17:35)
[2018-07-02] MEDS: LEVOTHYROXINE SODIUM 75 MCG TABLET PO SCH (06:39)
[2018-07-02] MEDS: ENOXAPARIN SODIUM 30 MG/0.3 ML SYRG SC SCH (07:59)
[2018-07-02] MEDS: ASPIRIN 81 MG TABLET.DR PO SCH (08:00)
[2018-07-02] MEDS: CITALOPRAM HYDROBROMIDE 10 MG TABLET PO SCH (08:00)
[2018-07-02] MEDS: LISINOPRIL 10 MG TABLET PO SCH (08:08)
[2018-07-02] MEDS: METOPROLOL SUCCINATE 50 MG TABLET.SA PO SCH (08:08)
[2018-07-02] MEDS ORDERED: LORazepam 2 MG/ML DISP.SYRIN IV ONE (12:15)
[2018-07-02 13:55] LABS: Body Fluid WBC 163816 /uL (0-1000)
[2018-07-02 14:03] LABS: Body Fluid Appearance TURBID (CLEAR); Body Fluid Color AMBER (COLORLESS)
--- NOTE | 2018-07-02 16:39 | CONS ---
[facility] - General Date of Service: 07/02/18 Narrative: Patient presented for hyperglycemia and UTI to ER. Today while being transitioned with nursing staff, they noticed a small area of drainage about her surgical incision for her left hip from December of 2017. They saw minimal drainage and dressed it with gauze. Patient has significant mental impairment, unable to give appropriate history at this time, there is no family in the room. Source: RN/MD, old records Exam Limitations: clinical condition - History of Present Illness Allergies/Adverse Reactions: Allergies No Known Allergies Allergy (Unverified 07/01/18 02:11) Home Medications: Home Medications Medication Instructions Recorded Last Taken Levothyroxine Sodium [Synthroid] 75 mcg PO DAILY@0700 #60 tab 05/05/16 Unknown Insulin Glargine,Hum.rec.anlog 12 units SC HS 02/05/17 Unknown [Lantus] Metoprolol Succinate [Toprol Xl] 50 mg PO DAILY #30 tab 07/27/17 Unknown blood sugar diagnostic strips See Dose Instructions .ROUTE 12/07/17 Unknown .MEDSUPPLY #20 ea citalopram 10 mg tablet 10 mg PO DAILY 12/07/17 Unknown furosemide 40 mg tablet 80 mg PO DAILY tab 12/07/17 Unknown lisinopril 10 mg tablet 10 mg PO DAILY 12/07/17 Unknown Aspirin [Aspirin Enteric Coated] 81 mg PO DAILY #30 tablet. 01/17/18 Unknown insulin syringe with safety needle See Dose Instructions .ROUTE 06/11/18 Unknown 1 mL 31 gauge x 5/16" .MEDSUPPLY #100 ea hydrocodone 5 mg-acetaminophen 325 2 tab PO Q6H PRN #60 tab 06/26/18 Unknown mg tablet Multivitamin/Iron/Folic Acid 1 tab PO DAILY 07/01/18 Unknown [Certagen] Nystatin [Mycostatin Powder] 1 appl TOPICAL BID PRN 07/01/18 Unknown Polyethylene Glycol 3350 [Miralax] 17 gm PO DAILY PRN 07/01/18 Unknown Procedures Drainage of Bladder with Drainage Device, Via Natural or Artificial Opening (01/13/18) Insertion of intraocular lens prosthesis at time of cataract extraction, one- stage (06/12/11) Measurement of Arterial Saturation, Peripheral, Percutaneous Approach (07/16/17) Measurement of systemic arterial blood gases (01/04/11) Phacoemulsification and aspiration of cataract (06/12/11) Replacement of Left Hip Joint, Femoral Surface with Metal Synthetic Substitute, Cemented, Open Approach (01/13/18) Transfusion of Nonautologous Red Blood Cells into Peripheral Vein, Percutaneous Approach (01/13/18) Ultrasonography of Right and Left Heart (07/16/17) Medications - Medications Current Medications: Current Medications Hydrocodone Bitart/Acetaminophen ([place] 5-325) 2 each PO Q6H PRN PRN Reason: Mild to Moderate Pain Stop: 07/31/18 08:33 Last Admin: 07/02/18 05:06 Dose: 2 each Documented by: Aspirin (Aspirin Enteric Coated) 81 mg PO DAILY [facility] Stop: 07/31/18 09:01 Last Admin: 07/02/18 08:00 Dose: 81 mg Documented by: Citalopram Hydrobromide (Celexa) 10 mg PO DAILY [facility] Stop: 07/31/18 09:01 Last Admin: 07/02/18 08:00 Dose: 10 mg Documented by: Enoxaparin Sodium (Lovenox) 30 mg SC Q24H [facility] Stop: 07/31/18 08:46 Last Admin: 07/02/18 07:59 Dose: 30 mg Documented by: Insulin Human Regular 100 (units/ Sodium Chloride) 101 mls @ 5.77 mls/hr IV TITR PRN; Protocol PRN Reason: Hyperglycemia Stop: 07/30/18 23:10 Last Titration: 07/01/18 07:23 Dose: 0 units/kg/hr, 0 mls/hr Documented by: Sodium Chloride (Sodium Chloride 0.9%) 1,000 mls @ 125 mls/hr IV .Q8H PRN PRN Reason: HYDRATION Stop: 07/31/18 10:34 Last Admin: 07/02/18 12:07 Dose: 125 mls/hr Documented by: Insulin Glargine (Lantus) 15 units SC HS [facility] Stop: 07/31/18 21:01 Last Admin: 07/01/18 20:58 Dose: 15 units Documented by: Insulin Human Lispro (Humalog) 5 units SC ACINS [facility] Stop: 07/31/18 12:01 Last Admin: 07/02/18 12:36 Dose: 5 units Documented by: Insulin Human Lispro (Humalog) 0 units SC ACHSINS [facility]; Protocol Stop: 07/31/18 21:01 Last Admin: 07/02/18 12:36 Dose: 4 units Documented by: Levothyroxine Sodium (Synthroid) 75 mcg PO DAILY@0700 [facility] Stop: 07/31/18 09:01 Last Admin: 07/02/18 06:39 Dose: 75 mcg Documented by: Lisinopril (Zestril) 10 mg PO DAILY [facility] Stop: 07/31/18 09:01 Last Admin: 07/02/18 08:08 Dose: 10 mg Documented by: Metoprolol Succinate (Toprol Xl) 50 mg PO DAILY [facility] Stop: 07/31/18 09:01 Last Admin: 07/02/18 08:08 Dose: 50 mg Documented by: Physical Examination - Exam Vital Signs: Vital Signs - Last Taken Temp 36.1 C 07/02/18 11:00 Pulse 68 07/02/18 16:23 Resp 16 07/02/18 16:23 BP 151/67 H 07/02/18 16:23 Pulse Ox 97 07/02/18 16:23 O2 Oxygen Delivery Method Room Air Extremity: Present: other - LLE--> well approximated surgical incision, small area of erythema along proximal incision, small wound with active purulent drainage - Results and Findings: Lab/Microbiology results last 24 hrs: Abnormal/Pending Laboratory Last 24 HRS 07/02/18 07/02/18 07/02/18 Unknown 13:35 12:25 RBC Hgb Hct MCH MCHC Immature Gran % (Auto) Immature Gran # (Auto) Neutrophils % Lymphocytes % Monocytes % Neutrophils # Lymphocytes # ESR 73 H Sodium Plasma Sodium Potassium Chloride BUN Creatinine Est GFR (Non-Af Amer) BUN/Creatinine Ratio Random Glucose ALT C-Reactive Prot, Quant 3.4 H Albumin Fluid WBC [id number] H Fluid RBC Greater than 1000.0 H 07/02/18 07/02/18 05:35 05:35 RBC 3.41 L Hgb 9.0 L Hct 30.7 L MCH 26.4 L MCHC 29.3 L Immature Gran % (Auto) 0.50 H Immature Gran # (Auto) 0.05 H Neutrophils % 77.7 H Lymphocytes % 10.9 L Monocytes % 10.1 H Neutrophils # 7.3 H Lymphocytes # 1.03 L ESR Sodium 150 H Plasma Sodium 149 H Potassium 5.4 H Chloride 117 H BUN 58 H Creatinine 1.91 H Est GFR (Non-Af Amer) 27 L BUN/Creatinine Ratio 30.4 H Random Glucose 67 L D ALT 13 L C-Reactive Prot, Quant Albumin 2.2 L Fluid WBC Fluid RBC Culture 07/02/18 13:35 Gram Stain - Final Hip - Left 06/30/18 22:40 Urine Culture - Preliminary Urine,Catheterized No Pathogens Isolated 06/30/18 23:50 Blood Culture - Preliminary Blood NO GROWTH 24 HOURS 06/30/18 20:25 Blood Culture - Preliminary Blood NO GROWTH 24 HOURS 07/01/18 02:15 - Final Nares MRSA Positive - Assessments/Findings (1) Left Periprosthetic Hip Infection Problem: Acute Plan - Plan Plan: -72 y/o female admitted to ER for multiple medical conditions, consulted orthopedic due to small area of drainage along previous incision for left cemented hemiarthroplasty from December of 2017. Drainage from wound was sent for culture. Obtained ESR and CRP markers for infection, no significant white count elevation. To determine if infection was superficial or deep a left hip aspiration was preformed under fluro guidance. The fluid revealed concern for a left hip periprosthetic infection due to cell count. Ordered culture of aspirated fluid. Discussed with Dr. Osorio options for surgical intervention. Due to patient complicated medical conditions, it has been determined that patient will require a higher level of medical care and further surgical intervention. Have discussed options in detail with family, they wish to proceed with surgical intervention, she will be transferred to higher level medical center for care.
[2018-07-02] MEDS: VANCOMYCIN HCL 1 GM in DEXTROSE 5 % IN WATER 250 ML IV SCH ×2 (17:29)
--- NOTE | 2018-07-02 18:12 | DS ---
Transfer Discharge Summary - Diagnosis(s)/Problems (1) Intractable nausea and vomiting Problem: Resolved (2) Hyperglycemia Problem: Resolved (3) Abdominal pain Problem: Resolved (4) Peripheral arterial disease Problem: Chronic (5) Anemia Problem: Chronic (6) Chronic renal failure, stage 4 (severe) Problem: Chronic (7) Urinary tract infection Problem: Acute - Results and Findings Results and Findings: Laboratory Results - last 24 hr 07/02/18 07/02/18 07/02/18 05:35 05:35 05:35 WBC 9.4 RBC 3.41 L Hgb 9.0 L Hct 30.7 L MCV 90.0 MCH 26.4 L MCHC 29.3 L RDW 13.0 Plt Count 241 MPV 11.4 Immature Gran % (Auto) 0.50 H Immature Gran # (Auto) 0.05 H Neutrophils % 77.7 H Lymphocytes % 10.9 L Monocytes % 10.1 H Eosinophils % 0.3 Basophils % 0.5 Nucleated RBC % 0.0 Neutrophils # 7.3 H Lymphocytes # 1.03 L Monocytes # 1.0 Eosinophils # 0.0 Absolute Basophils 0.1 ESR Sodium 150 H Plasma Sodium 149 H Potassium 5.4 H Chloride 117 H Carbon Dioxide 26.8 Anion Gap 11.6 BUN 58 H Creatinine 1.91 H Est GFR (Non-Af Amer) 27 L BUN/Creatinine Ratio 30.4 H Random Glucose 67 L D Lactic Acid, Venous 1.3 Calcium 8.6 Calcium Adj for Albumin 9.7 Total Bilirubin 0.1 AST 17 ALT 13 L Alkaline Phosphatase 108 C-Reactive Prot, Quant Total Protein 6.5 Albumin 2.2 L Fluid Color Fluid Appearance Fluid WBC Fluid RBC Fluid Neutrophils Fluid Lymphocytes 07/02/18 07/02/18 07/02/18 12:25 13:35 Unknown WBC RBC Hgb Hct MCV MCH MCHC RDW Plt Count MPV Immature Gran % (Auto) Immature Gran # (Auto) Neutrophils % Lymphocytes % Monocytes % Eosinophils % Basophils % Nucleated RBC % Neutrophils # Lymphocytes # Monocytes # Eosinophils # Absolute Basophils ESR 73 H Sodium Plasma Sodium Potassium Chloride Carbon Dioxide Anion Gap BUN Creatinine Est GFR (Non-Af Amer) BUN/Creatinine Ratio Random Glucose Lactic Acid, Venous Calcium Calcium Adj for Albumin Total Bilirubin AST ALT Alkaline Phosphatase C-Reactive Prot, Quant 3.4 H Total Protein Albumin Fluid Color Kami Fluid Appearance Turbid Fluid WBC [id number] H Fluid RBC Greater than 1000.0 H Fluid Neutrophils 99 Fluid Lymphocytes 1 - Medications Medications: Active Medications Hydrocodone Bitart/Acetaminophen ([place] 5-325) 2 each PO Q6H PRN PRN Reason: Mild to Moderate Pain Stop: 07/31/18 08:33 Last Admin: 07/02/18 05:06 Dose: 2 each Documented by: Aspirin (Aspirin Enteric Coated) 81 mg PO DAILY [facility] Stop: 07/31/18 09:01 Last Admin: 07/02/18 08:00 Dose: 81 mg Documented by: Citalopram Hydrobromide (Celexa) 10 mg PO DAILY [facility] Stop: 07/31/18 09:01 Last Admin: 07/02/18 08:00 Dose: 10 mg Documented by: Enoxaparin Sodium (Lovenox) 30 mg SC Q24H [facility] Stop: 07/31/18 08:46 Last Admin: 07/02/18 07:59 Dose: 30 mg Documented by: Insulin Human Regular 100 (units/ Sodium Chloride) 101 mls @ 5.77 mls/hr IV TITR PRN; Protocol PRN Reason: Hyperglycemia Stop: 07/30/18 23:10 Last Titration: 07/01/18 07:23 Dose: 0 units/kg/hr, 0 mls/hr Documented by: Sodium Chloride (Sodium Chloride 0.9%) 1,000 mls @ 125 mls/hr IV .Q8H PRN PRN Reason: HYDRATION Stop: 07/31/18 10:34 Last Admin: 07/02/18 12:07 Dose: 125 mls/hr Documented by: Vancomycin HCl 1 gm/ Dextrose/ (Water) 250 mls @ 140 mls/hr IV Q48H [facility] Stop: 08/01/18 17:01 Last Admin: 07/02/18 17:29 Dose: 140 mls/hr Documented by: Insulin Glargine (Lantus) 15 units SC HS [facility] Stop: 07/31/18 21:01 Last Admin: 07/01/18 20:58 Dose: 15 units Documented by: Insulin Human Lispro (Humalog) 5 units SC ACINS [facility] Stop: 07/31/18 12:01 Last Admin: 07/02/18 17:35 Dose: Not Given Documented by: Insulin Human Lispro (Humalog) 0 units SC ACHSINS [facility]; Protocol Stop: 07/31/18 21:01 Last Admin: 07/02/18 17:27 Dose: Not Given Documented by: Levothyroxine Sodium (Synthroid) 75 mcg PO DAILY@0700 [facility] Stop: 07/31/18 09:01 Last Admin: 07/02/18 06:39 Dose: 75 mcg Documented by: Lisinopril (Zestril) 10 mg PO DAILY [facility] Stop: 07/31/18 09:01 Last Admin: 07/02/18 08:08 Dose: 10 mg Documented by: Metoprolol Succinate (Toprol Xl) 50 mg PO DAILY [facility] Stop: 07/31/18 09:01 Last Admin: 07/02/18 08:08 Dose: 50 mg Documented by: Discontinued Medications Albuterol Sulfate (Albuterol Sulfate 2.5 Mg/0.5ml) 2.5 mg IH ONCE ONE Stop: 06/30/18 21:15 Last Admin: 06/30/18 21:26 Dose: 2.5 mg Documented by: Calcium Gluconate (Calcium Gluconate) 4.65 meq IV ONCE ONE Stop: 06/30/18 21:16 Last Admin: 06/30/18 21:33 Dose: 4.65 meq Documented by: Diatrizoate Meglum/Diatrizoate Sod (Gastrografin Solution) 60 ml PO ONCE ONE Stop: 06/30/18 20:16 Last Admin: 06/30/18 20:25 Dose: 60 ml Documented by: Sodium Chloride (Sodium Chloride 0.9%) 1,000 mls @ 999 mls/hr IV .Q1H1M ONE Stop: 06/30/18 21:52 Last Infusion: 06/30/18 22:08 Dose: Infused Documented by: Sodium Chloride (Sodium Chloride 0.9%) 1,000 mls @ 250 mls/hr IV .Q4H ONE Stop: 07/01/18 02:54 Last Infusion: 07/01/18 02:58 Dose: Infused Documented by: Ceftriaxone Sodium (Rocephin 1000 Mg Er Piggyback) 1,000 mg in 100 mls @ 200 mls/hr IV ONCE ONE Stop: 07/01/18 00:05 Last Infusion: 07/01/18 00:22 Dose: Infused Documented by: Sodium Chloride (Sodium Chloride 0.9%) 1,000 mls @ 250 mls/hr IV .Q4H PRN PRN Reason: HYDRATION Stop: 07/31/18 00:02 Last Infusion: 07/01/18 10:55 Dose: 0 mls/hr Documented by: Insulin Human Regular (Humulin R) 6 units 0.1 units/kg (6 units) IV ONCE ONE Stop: 06/30/18 20:54 Last Admin: 06/30/18 21:11 Dose: 6 units Documented by: Lorazepam (Ativan) 1 mg IV ONCE ONE Stop: 07/02/18 12:16 Last Admin: 07/02/18 12:07 Dose: 1 mg Documented by: Morphine Sulfate (Morphine Sulfate) 4 mg IV Q20M PRN PRN Reason: Pain Stop: 07/30/18 19:46 Last Admin: 07/01/18 04:52 Dose: 4 mg Documented by: Ondansetron HCl (Zofran) 4 mg IV ONCE ONE Stop: 06/30/18 19:46 Last Admin: 06/30/18 20:07 Dose: 4 mg Documented by: Sodium Polystyrene Sulfonate (Sodium Polystyrene Sulfonate) 15 g PO ONCE ONE Stop: 06/30/18 23:09 Last Admin: 06/30/18 23:16 Dose: 15 g Documented by: - Disposition Disposition: Home self-care Condition: Serious
--- NOTE | 2018-07-02 19:01 | PN ---
Subjective - Date and Time Seen Date: 07/02/18 Time: 08:25 Subjective Narrative: Vianey Young was admitted for hyperglycemia and apparent urinary tract infection. The UA is not grown a positive culture. Her blood sugars are back down to normal today in fact they are slightly low and this upper 60s. She has not had any fever or chills. Her blood pressure has remained normal. She appears to be better hydrated. There is been improvement in her lab and her EGFR has improved from 18-27. Today while nursing was rolling her over to her side and noted some pus coming from the hip. She had had an old ORIF and a hemiarthroplasty done of that hip. Orthopedics was called and they opened the drainage area and swabbed it out and removed a large amount of pus. She was then taken to radiology and with CT guidance the hip was needle aspirated and has grown out a large amount of gram-positive diplococcus and possibly some strep species. She also has a positive MRSA nasal screen on admission. The drug of choice is vancomycin and pharmacy has calculated she needs a gram every 48 hours. Rifampin would be a reasonable second drug. Orthopedics believes that because surgically to be long-term postop complications and long-term IV antibiotic administration that she would be better served at a tertiary care facility. Unfortunately, the [facility] is on diversion and refused to accept because they're full. [facility] in [place] was then contacted and a conference call and set up between me, the ER physician the hospitalist and vp digital marketing and an orthopedist. I reviewed her history with all of them and all agreed to accept her in transfer except orthopedics. His reluctance was because they no longer have infectious disease at that hospital and he doesn't believe he should except other peoples hip infections without that support. So as of this moment they have declined to accept. He did say that if we still couldn't get her transferred to [facility] tomorrow and to call him back and they would reconsider. Therefore she will be here again tonight and will try to get her transferred somewhere again tomorrow. Morning lab is ordered. I discontinued her subcutaneous insulin and continued with the basal insulin (Lantus). We'll continue to monitor her blood sugars 4 times a day. Objective - Review of Systems Generalized/Overall Review: Reports: No Symptoms Reported EENTM: Reports: No Symptoms Reported Respiratory: Reports: No Symptoms Reported Cardiac: Reports: No Symptoms Reported Abdominal: Reports: No Symptoms Reported Genitourinary Symptoms: Reports: No Symptoms Reported Musculoskeletal Complaints: Reports: Other - Purulent drainage from the hip and the joint is septic. Neurological: Reports: No Symptoms Reported Skin: Reports: No Symptoms Reported Endocrine: Reports: No Symptoms Reported - Vitals Vitals: Last Vital Signs Temp 36.1 C 07/02/18 11:00 Pulse 68 07/02/18 16:23 Resp 16 07/02/18 16:23 BP 151/67 H 07/02/18 16:23 Pulse Ox 97 07/02/18 16:23 - Abnormal Lab Findings Abnormal Lab Findings: Abnormal Lab Results 07/02/18 07/02/18 07/02/18 Range/Units 05:35 05:35 12:25 RBC 3.41 L (4.2-5.4) M/mm3 Hgb 9.0 L (12.5-16.0) gm/dL Hct 30.7 L (37.0-47.0) % MCH 26.4 L (27-31) pg MCHC 29.3 L (32-36) g/dl Immature Gran % (Auto) 0.50 H (0.001-0.429) % Immature Gran # (Auto) 0.05 H (0.000-0.0310) K/mm3 Neutrophils % 77.7 H (42-75.0) % Lymphocytes % 10.9 L (20-51) % Monocytes % 10.1 H (0.0-9) % Neutrophils # 7.3 H (1.3-6.0) K/mm3 Lymphocytes # 1.03 L (1.5-3.5) k/mm3 ESR 73 H (0-15) mm/hr Sodium 150 H (132-142) mmol/L Plasma Sodium 149 H (130-142) mmol/L Potassium 5.4 H (3.4-4.6) mmol/L Chloride 117 H (97-106) mmol/L BUN 58 H (3-23) mg/dL Creatinine 1.91 H (0.4-1.4) mg/dL Est GFR (Non-Af Amer) 27 L (60-130) mL/min BUN/Creatinine Ratio 30.4 H (9.0-21.6) Random Glucose 67 L D (70-110) mg/dL ALT 13 L (19-67) U/L C-Reactive Prot, Quant (0.0-0.9) mg/dL Albumin 2.2 L (3.4-5.0) gm/dl Fluid WBC (0-1000) /uL Fluid RBC (0-1000) /uL 07/02/18 07/02/18 Range/Units 13:35 Unknown RBC (4.2-5.4) M/mm3 Hgb (12.5-16.0) gm/dL Hct (37.0-47.0) % MCH (27-31) pg MCHC (32-36) g/dl Immature Gran % (Auto) (0.001-0.429) % Immature Gran # (Auto) (0.000-0.0310) K/mm3 Neutrophils % (42-75.0) % Lymphocytes % (20-51) % Monocytes % (0.0-9) % Neutrophils # (1.3-6.0) K/mm3 Lymphocytes # (1.5-3.5) k/mm3 ESR (0-15) mm/hr Sodium (132-142) mmol/L Plasma Sodium (130-142) mmol/L Potassium (3.4-4.6) mmol/L Chloride (97-106) mmol/L BUN (3-23) mg/dL Creatinine (0.4-1.4) mg/dL Est GFR (Non-Af Amer) (60-130) mL/min BUN/Creatinine Ratio (9.0-21.6) Random Glucose (70-110) mg/dL ALT (19-67) U/L C-Reactive Prot, Quant 3.4 H (0.0-0.9) mg/dL Albumin (3.4-5.0) gm/dl Fluid WBC [id number] H (0-1000) /uL Fluid RBC Greater than 1000.0 H (0-1000) /uL - Exam Constitutional: Present: Alert, Oriented x3, Cooperative, Well developed, Well nourished, No distress ENT Exam: Present: normal ENT inspection, hearing grossly normal, pharynx normal, TMs normal Neck: Present: non-tender, full range of motion, supple Breasts: Present: Exam deferred Respiratory: Present: chest non-tender, lungs clear, normal breath sounds Cardiovascular/Chest: Present: normal peripheral pulses, regular rate, rhythm, no chest tenderness, no edema, no gallop, no JVD, no murmur, no rub Abdomen: Present: Normal bowel sounds, soft, nontender, nondistended, no rebound tenderness, no hepatospenomegaly, no masses /Rectal: Present: Exam deferred Extremity: Present: normal range of motion, non-tender, normal inspection, no pedal edema, no calf tenderness Skin Exam: Present: normal color, warm/dry, no cyanosis Lymphatic: Present: no adenopathy Neurologic: Present: insurance customer service specialist II-XII nml as tested Appearance: Present: disheveled, impaired insight, impaired recent memory, impaired remote memory Eye contact: Present: uncooperative Thoughts: Present: normal thought pattern, no apparent hallucination Assessment/Plan Plan Narrative: 1. Start vancomycin 1 g every 48 hours 2. Repeat labs tomorrow morning 3. Reattempt to transfer to a tertiary care facility tomorrow. 4. Discontinue mealtime insulin - Problems/Diagnosis (1) Intractable nausea and vomiting Problem: Resolved (2) Hyperglycemia Problem: Resolved (3) Abdominal pain Problem: Resolved (4) Peripheral arterial disease Problem: Chronic (5) Anemia Problem: Chronic Qualifiers: Anemia type: due to chronic kidney disease Chronic kidney disease stage: stage 4 (severe) Qualified Code(s): N18.4 - Chronic kidney disease, stage 4 (severe); D63.1 - Anemia in chronic kidney disease (6) Chronic renal failure, stage 4 (severe) Problem: Chronic (7) Urinary tract infection Problem: Ruled-out Qualifiers: Urinary tract infection type: acute pyelonephritis Qualified Code(s): N10 - Acute pyelonephritis (8) Left Periprosthetic Hip Infection Problem: Acute
[2018-07-02] MEDS ORDERED: INSULIN LISPRO 100 UNITS/ML VIAL SC ONE (21:45)
[2018-07-03] MEDS: NORMAL SALINE 1,000 ML IV PRN ×2 (06:48→15:08)
[2018-07-03] MEDS: LEVOTHYROXINE SODIUM 75 MCG TABLET PO SCH (06:59)
[2018-07-03] MEDS: LORazepam 2 MG/ML DISP.SYRIN IV PRN ×2 (08:12→21:59)
[2018-07-03] MEDS: ASPIRIN 81 MG TABLET.DR PO SCH (09:07)
[2018-07-03] MEDS: METOPROLOL SUCCINATE 50 MG TABLET.SA PO SCH (09:07)
[2018-07-03] MEDS: CITALOPRAM HYDROBROMIDE 10 MG TABLET PO SCH (09:07)
[2018-07-03] MEDS: ENOXAPARIN SODIUM 30 MG/0.3 ML SYRG SC SCH (09:08)
[2018-07-03] MEDS: LISINOPRIL 10 MG TABLET PO SCH (09:09)
[2018-07-03] MEDS: MORPHINE SULFATE 4 MG/ML SYRG IV PRN ×2 (09:30→19:04)
[2018-07-03 10:13] LABS: Hemoglobin 8.6 gm/dL (12.5-16.0); Mean Cell Volume 87.8 fl (78-100); Mean Corpuscular Hgb Conc 30.7 g/dl (32-36); Mean Platelet Volume 11.5 fl (8-12.5); Neutrophil # 4.4 K/mm3 (1.3-6.0); Neutrophil % 65.7 % (42-75.0); Platelet Count 203 K/mm3 (150-450); Red Blood Count 3.19 M/mm3 (4.2-5.4); Red Cell Distribution Width 12.8 % (11.5-14.0); White Blood Count 6.6 K/mm3 (4.0-10.5)
[2018-07-03 10:24] LABS: Albumin * 1.7 gm/dl (3.4-5.0); Anion Gap 12.1 mmol/L (6.8-13.8); BUN/Creatinine Ratio 20.8 (9.0-21.6); Bilirubin, Total 0.2 mg/dL (0.0-1.1); Ca. Corrected For Albumin 9.4 mg/dL (8.4-10.2); Calcium * 7.9 mg/dL (7.9-10.9); Carbon Dioxide 21.9 mmol/L (24-32.6); Total Protein 5.6 gm/dL (6.2-8.2)
--- NOTE | 2018-07-03 19:33 | PN ---
Subjective - Date and Time Seen Date: 07/03/18 Time: 08:10 Subjective Narrative: Vianey is essentially unchanged except for agitation. She is been hitting out staff and refusing care. I gave her lorazepam before her needle aspiration every hip joint yesterday and it worked very well. We will treat her every 8 hours with the same as needed. Still working on trying to get her transferred to a tertiary care facility take care of her septic hip and her postoperative antibiotic requirements which will probably be extensive. [facility] still full. [facility] does not have infectious disease back So they're refusing. Other hospitals in the area also been contacted and refused. [facility] in [place] may be interested in taking her but need to have a conversation with me or her orthopedist before they will except. I will address this again tomorrow morning and case management is here and I can talk with our orthopedic people directly. Laboratory-mcclellan her hemoglobin is at 8.6 g. White count remains normal. I ordered morning lab to include CBC CMP and lactic acid level. Objective - Review of Systems Generalized/Overall Review: Reports: Weakness EENTM: Reports: No Symptoms Reported Respiratory: Reports: No Symptoms Reported Cardiac: Reports: No Symptoms Reported Abdominal: Reports: No Symptoms Reported Genitourinary Symptoms: Reports: No Symptoms Reported Musculoskeletal Complaints: Reports: Other - Infected hip joint Neurological: Reports: No Symptoms Reported, Anxiety, Depressed, Emotional Problems, Other - Moderate MR. Agitated behavior at times. Skin: Reports: No Symptoms Reported Endocrine: Reports: No Symptoms Reported - Vitals Vitals: Last Vital Signs Temp 36.4 C 07/03/18 14:37 Pulse 59 L 07/03/18 14:37 Resp 16 07/03/18 14:37 BP 164/64 H 07/03/18 14:37 Pulse Ox 97 07/03/18 14:37 - Abnormal Lab Findings Abnormal Lab Findings: Abnormal Lab Results 07/03/18 07/03/18 Range/Units 10:00 10:00 RBC 3.19 L (4.2-5.4) M/mm3 Hgb 8.6 L (12.5-16.0) gm/dL Hct 28.0 L (37.0-47.0) % MCHC 30.7 L (32-36) g/dl Immature Gran % (Auto) 0.80 H (0.001-0.429) % Immature Gran # (Auto) 0.05 H (0.000-0.0310) K/mm3 Monocytes % 11.0 H (0.0-9) % Lymphocytes # 1.34 L (1.5-3.5) k/mm3 Chloride 110 H (97-106) mmol/L Carbon Dioxide 21.9 L (24-32.6) mmol/L BUN 32 H (3-23) mg/dL Creatinine 1.54 H (0.4-1.4) mg/dL Est GFR (Non-Af Amer) 35 L D (60-130) mL/min Random Glucose 141 H D (70-110) mg/dL ALT 11 L (19-67) U/L Total Protein 5.6 L (6.2-8.2) gm/dL Albumin 1.7 L (3.4-5.0) gm/dl - Exam Constitutional: Present: Alert, Well nourished, Mild distress, Elderly, Looks Older than stated age. Absent: Cooperative, Well developed ENT Exam: Present: normal ENT inspection, hearing grossly normal Neck: Present: non-tender, full range of motion Breasts: Present: Exam deferred Respiratory: Present: chest non-tender, lungs clear, normal breath sounds, no respiratory distress Cardiovascular/Chest: Present: normal peripheral pulses, regular rate, rhythm, no chest tenderness, no edema, no gallop, no JVD, no murmur, no rub Abdomen: Present: Normal bowel sounds, soft, nontender, nondistended, no rebound tenderness, no hepatospenomegaly, no masses /Rectal: Present: Exam deferred Extremity: Present: other - Purulence from the infected hip draining Skin Exam: Present: normal color, warm/dry, no cyanosis Lymphatic: Present: no adenopathy 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 Thoughts: Present: no apparent hallucination Assessment/Plan Plan Narrative: 1. Work on transferring again tomorrow 2. Lorazepam 1 mg every 8 hours when necessary agitation 3. Morning labs to include CBC, CMP, lactic acid level - Problems/Diagnosis (1) Left Periprosthetic Hip Infection Problem: Acute (2) Intractable nausea and vomiting Problem: Resolved (3) Hyperglycemia Problem: Resolved (4) Abdominal pain Problem: Resolved (5) Peripheral arterial disease Problem: Chronic (6) Anemia Problem: Chronic Qualifiers: Anemia type: due to chronic kidney disease Chronic kidney disease stage: stage 4 (severe) Qualified Code(s): N18.4 - Chronic kidney disease, stage 4 (severe); D63.1 - Anemia in chronic kidney disease (7) Chronic renal failure, stage 4 (severe) Problem: Chronic (8) Urinary tract infection Problem: Ruled-out
[2018-07-03] MEDS: INSULIN GLARGINE,HUM.REC.ANLOG 100 UNITS/ML VIAL SC SCH (21:37)
[2018-07-04] MEDS: NORMAL SALINE 1,000 ML IV PRN (00:16)
[2018-07-04] MEDS: LEVOTHYROXINE SODIUM 75 MCG TABLET PO SCH (06:57)
[2018-07-04] MEDS: HYDROcodone/ACETAMINOPHEN 1 EACH TABLET PO PRN ×2 (07:51→16:27)
[2018-07-04] MEDS ORDERED: FUROSEMIDE 10 MG/ML VIAL IV ONE (08:43)
[2018-07-04 09:19] LABS: Hematocrit 28.7 % (37.0-47.0); Hemoglobin 8.8 gm/dL (12.5-16.0); Mean Cell Volume 87.5 fl (78-100); Mean Corpuscular Hemoglobin 26.8 pg (27-31); Mean Corpuscular Hgb Conc 30.7 g/dl (32-36); Mean Platelet Volume 11.1 fl (8-12.5); Neutrophil # 3.4 K/mm3 (1.3-6.0); Neutrophil % 61.6 % (42-75.0); Platelet Count 216 K/mm3 (150-450); Red Blood Count 3.28 M/mm3 (4.2-5.4); Red Cell Distribution Width 12.8 % (11.5-14.0); White Blood Count 5.6 K/mm3 (4.0-10.5)
[2018-07-04 09:27] LABS: Albumin * 1.7 gm/dl (3.4-5.0); BUN/Creatinine Ratio 14.8 (9.0-21.6); Bilirubin, Total 0.1 mg/dL (0.0-1.1); Ca. Corrected For Albumin 9.3 mg/dL (8.4-10.2); Calcium * 7.8 mg/dL (7.9-10.9); Carbon Dioxide 23.4 mmol/L (24-32.6); Potassium 4.4 mmol/L (3.4-4.6); Total Protein 5.4 gm/dL (6.2-8.2)
[2018-07-04] MEDS: ASPIRIN 81 MG TABLET.DR PO SCH (09:33)
[2018-07-04] MEDS: CITALOPRAM HYDROBROMIDE 10 MG TABLET PO SCH (09:33)
[2018-07-04] MEDS: METOPROLOL SUCCINATE 50 MG TABLET.SA PO SCH (09:33)
[2018-07-04] MEDS: ENOXAPARIN SODIUM 30 MG/0.3 ML SYRG SC SCH (09:34)
[2018-07-04] MEDS: LISINOPRIL 10 MG TABLET PO SCH (09:35)
[2018-07-04] MEDS: LORazepam 2 MG/ML DISP.SYRIN IV PRN (12:00)
--- NOTE | 2018-07-04 15:14 | PN ---
Progess Note - Interim Date: 07/04/18 Time: 15:07 Narrative: 07/04/18 15:07 I reevaluated the patient at bedside today. Exam demonstrates minimal serosanguineous drainage from a small opening at the very proximal aspect of the patient's left hip incision. Patient complains of pain with gentle range of motion of the left hip. At this point, the patient remains a challenging clinical scenario. She has a periprosthetic infection of the left hip with cultures growing enterococcus faecalis. We have discussed the case with the patient's son. We discussed options with him including antibiotic suppression versus open irrigation and debridement with head exchange and continued antibiotic suppression versus 2 stage revision. She is a poor operative candidate given her significant medical comorbidities including dementia, congestive heart failure, chronic kidney disease, and uncontrolled diabetes. She is at high risk for not healing her wound postoperatively if we were to proceed with operative intervention. At this point, my only recommendation for surgical treatment would be a debridement with a head exchange and suppressive antibiotics. She is currently clinically stable on IV vancomycin. My concern with any operative intervention would be intraoperative or postoperative medical complications requiring a higher level of care. We do not have ICU coverage at our facility and I think she would be better served at a larger facility with ICU and infectious disease services if operative intervention were to be entertained. Medicine agrees with this. As of right now, her son wants move forward with operative treatment. We are trying to find a facility that will accept her at this point. Continue to have discussions with the patient's son while we attempt to find a facility for transfer of care. Geovanny Osorio MD
[2018-07-04] MEDS: VANCOMYCIN HCL 1 GM in DEXTROSE 5 % IN WATER 250 ML IV SCH ×2 (16:24)
--- NOTE | 2018-07-04 18:20 | PN ---
Subjective - Date and Time Seen Date: 07/04/18 Time: 07:40 Subjective Narrative: Mrs. Young continues to be medically stable. Hemodynamic monitoring has reflected stability. She's been afebrile. She continues to have small amounts of drainage from the fistula from her left hip infection. This hardware in his hip needs to be removed, the joint cleaned out, and long-term antibiotic therapy is established. She is such a high antra and postoperative risk and will probably need ICU capabilities which we do not have after the surgery. However, we talked the [facility] for 4 days in a row and they have no room for this patient. We have called [facility], [facility] in [place], [facility] in [place], and gonzalez Price spoken with an orthopedist at the [facility] and he also has refused to accept this patient. Therefore, our choices are to do the high risk surgery here or consider hospice. I don't believe her long-term prognosis is good anyway. I'll speak with Dr. Osorio about this tomorrow and then make some decisions. I agree with Dr. Osorio that she is a high-risk patient that would be better served with procurement director therapy following surgery than we have here but with no one being willing to accept her I think we're going to have to risk doing it ourselves. I'll repeat some laboratory work in the morning. Objective - Review of Systems Generalized/Overall Review: Reports: Weakness, Malaise EENTM: Reports: No Symptoms Reported Respiratory: Reports: No Symptoms Reported Cardiac: Reports: No Symptoms Reported Abdominal: Reports: No Symptoms Reported Genitourinary Symptoms: Reports: No Symptoms Reported Musculoskeletal Complaints: Reports: No Symptoms Reported, Joint Pain - Left hip with purulent draining Neurological: Reports: Weakness, Other - Mental retardation and dementia Skin: Reports: No Symptoms Reported Endocrine: Reports: No Symptoms Reported - Vitals Vitals: Last Vital Signs Temp 36.9 C 07/04/18 13:13 Pulse 59 L 07/04/18 13:13 Resp 18 07/04/18 13:13 BP 160/52 H 07/04/18 13:13 Pulse Ox 97 07/04/18 13:13 - Abnormal Lab Findings Abnormal Lab Findings: Abnormal Lab Results 07/04/18 07/04/18 Range/Units 09:10 09:10 RBC 3.28 L (4.2-5.4) M/mm3 Hgb 8.8 L (12.5-16.0) gm/dL Hct 28.7 L (37.0-47.0) % MCH 26.8 L (27-31) pg MCHC 30.7 L (32-36) g/dl Immature Gran % (Auto) 0.90 H (0.001-0.429) % Immature Gran # (Auto) 0.05 H (0.000-0.0310) K/mm3 Monocytes % 11.0 H (0.0-9) % Eosinophils % 3.1 H (0.0-3.0) % Lymphocytes # 1.25 L (1.5-3.5) k/mm3 Sodium 143 H (132-142) mmol/L Plasma Sodium 143 H (130-142) mmol/L Chloride 112 H (97-106) mmol/L Carbon Dioxide 23.4 L (24-32.6) mmol/L BUN 24 H (3-23) mg/dL Creatinine 1.62 H (0.4-1.4) mg/dL Est GFR (Non-Af Amer) 33 L (60-130) mL/min Calcium 7.8 L (7.9-10.9) mg/dL Alkaline Phosphatase 255 H (50-170) U/L Total Protein 5.4 L (6.2-8.2) gm/dL Albumin 1.7 L (3.4-5.0) gm/dl - Exam Constitutional: Present: Alert, Oriented x3, Cooperative, Well developed, Well nourished, No distress ENT Exam: Present: normal ENT inspection, hearing grossly normal, pharynx no rmal, TMs normal Neck: Present: non-tender, full range of motion, supple, normal inspection, trachea midline Breasts: Present: Exam deferred Respiratory: Present: chest non-tender, lungs clear, normal breath sounds Cardiovascular/Chest: Present: normal peripheral pulses, regular rate, rhythm, no chest tenderness, no edema, no gallop, no JVD, no murmur, no rub Abdomen: Present: Normal bowel sounds, soft, nontender, nondistended, no rebound tenderness, no hepatospenomegaly, no masses, obese Extremity: Present: normal range of motion - Except for the left hip. 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 Absent: oriented x 3, abnormal gait Appearance: Present: disheveled, impaired insight, impaired recent memory, impaired remote memory Eye contact: Present: cooperative, good eye contact, normal speech Thoughts: Present: normal thought pattern, no apparent hallucination Assessment/Plan - Problems/Diagnosis (1) Left Periprosthetic Hip Infection Problem: Acute (2) Intractable nausea and vomiting Problem: Resolved (3) Hyperglycemia Problem: Resolved (4) Abdominal pain Problem: Resolved (5) Peripheral arterial disease Problem: Chronic (6) Anemia Problem: Chronic Qualifiers: Anemia type: due to chronic kidney disease Chronic kidney disease stage: stage 4 (severe) Qualified Code(s): N18.4 - Chronic kidney disease, stage 4 (severe); D63.1 - Anemia in chronic kidney disease (7) Chronic renal failure, stage 4 (severe) Problem: Chronic (8) Urinary tract infection Problem: Ruled-out
[2018-07-04] MEDS: INSULIN GLARGINE,HUM.REC.ANLOG 100 UNITS/ML VIAL SC SCH (21:28)
[2018-07-05 06:04] LABS: Hematocrit 30.5 % (37.0-47.0); Hemoglobin 9.4 gm/dL (12.5-16.0); Mean Cell Volume 85.7 fl (78-100); Mean Corpuscular Hemoglobin 26.4 pg (27-31); Mean Corpuscular Hgb Conc 30.8 g/dl (32-36); Mean Platelet Volume 11.4 fl (8-12.5); Neutrophil # 4.6 K/mm3 (1.3-6.0); Neutrophil % 71.2 % (42-75.0); Platelet Count 229 K/mm3 (150-450); Red Blood Count 3.56 M/mm3 (4.2-5.4); Red Cell Distribution Width 12.8 % (11.5-14.0); White Blood Count 6.4 K/mm3 (4.0-10.5)
[2018-07-05 06:22] LABS: Albumin * 1.8 gm/dl (3.4-5.0); Anion Gap 11.8 mmol/L (6.8-13.8); BUN/Creatinine Ratio 11.8 (9.0-21.6); Bilirubin, Total 0.2 mg/dL (0.0-1.1); Ca. Corrected For Albumin 9.7 mg/dL (8.4-10.2); Calcium * 8.3 mg/dL (7.9-10.9); Carbon Dioxide 25.1 mmol/L (24-32.6); Potassium 3.9 mmol/L (3.4-4.6)
[2018-07-05] MEDS: LEVOTHYROXINE SODIUM 75 MCG TABLET PO SCH (06:45)
[2018-07-05] MEDS: HYDROcodone/ACETAMINOPHEN 1 EACH TABLET PO PRN ×2 (06:45→14:55)
[2018-07-05] MEDS: LISINOPRIL 10 MG TABLET PO SCH (08:20)
[2018-07-05] MEDS: ENOXAPARIN SODIUM 30 MG/0.3 ML SYRG SC SCH (08:20)
[2018-07-05] MEDS: CITALOPRAM HYDROBROMIDE 10 MG TABLET PO SCH (08:20)
[2018-07-05] MEDS: METOPROLOL SUCCINATE 50 MG TABLET.SA PO SCH (08:20)
[2018-07-05] MEDS: ASPIRIN 81 MG TABLET.DR PO SCH (08:20)
[2018-07-05] MEDS ORDERED: FUROSEMIDE 10 MG/ML VIAL IV ONE (08:51)
[2018-07-05] MEDS ORDERED: amLODIPine BESYLATE 5 MG TABLET PO SCH (09:00)
--- NOTE | 2018-07-05 12:58 | DS ---
Transfer Discharge Summary - Diagnosis(s)/Problems (1) Left Periprosthetic Hip Infection Problem: Acute (2) Intractable nausea and vomiting Problem: Resolved (3) Hyperglycemia Problem: Resolved (4) Abdominal pain Problem: Resolved (5) Peripheral arterial disease Problem: Chronic (6) Anemia Problem: Chronic (7) Chronic renal failure, stage 4 (severe) Problem: Chronic (8) Urinary tract infection Problem: Ruled-out - Course Description of Stay: Vianey Young is a 72 yo wh. female who presented to the ER with altered mental status and weakness. Is was incoherant. She was evaluated in the emergency room and found to have a blood sugar of 850 and 1. Urinary tract infection was 4+ bacteria, positive nitrites, plus pus cells but the urine culture grew out no pathogens. She was admitted for severe hyperglycemia and dehydration and urinary tract infection. She has received IV fluids in the emergency room and blood sugar came down to about 500 just with some volume replacement. She was placed on an insulin drip and by the following morning her blood sugars were about 200 and so the insulin drip was discontinued. She was placed on preprandial insulin and a basal insulin. But then she wasn't eating very well and so the mealtime insulin was withdrawn but the basal insulin was maintained and her blood sugars have been reasonable and less than 200 most times. She had one event of recurrent up to over 300 and was given just 5 units of Humalog and it corrected that and there has not been any further hyperglycemia. Nurses were rolling her over to her side to give her a bath and change her Lantus within noticed some pus draining from a small hole in the left hip. Orthopedics was called and they swabbed the fistula and a huge amount of pus. Radiology where under fluoroscopy of the left hip was needle aspirated removing large amount of pus there as well. The cultures have grown out enterococcus faecalis. Blood cultures were not done. Repeat urinalysis was eventful. She was started on vancomycin 1 g every 48 hours pending the culture results. A culture shows sensitivity to vancomycin so that has been continued. Vianey had fractured her left hip last December 2017 and had a hemiarthroplasty done of the left hip at that time. That was done here at [facility]. However, cause she is such a high surgery risk and we would expect postoperative complications and the need for infectious disease our local orthopedist do not feel we have the capability to care for this patient after surgery to which I concur. We have been working on finding a hospital transfer this patient for 5 days now. The [facility] has been full and not accepting patients all week. Other hospitals haven't contacted include [facility], [facility] in [place], [facility], [facility] in [place], [facility] in [place]. This morning we spoke with the hospital in [facility] and they have graciously agreed to accept her in transfer this afternoon as soon as they have a bed available. Since admission and especially since drainage of this abscess Vianey has been medically stable. She's had no fever or chills or other signs or symptoms of sepsis. She still has a lot of pain in her left hip if it is flexed and extended or abducted. Quite a lot of pain just getting a straight cath for her repeat urinalysis. Social circumstances are significant. Vianey is cared for by son. He has insisted on surgical intervention to try to save her life. He would not discuss hospice. Vianey herself is moderately mentally impaired from retardation and dementia. She is unable to make decisions on her behalf. Her son is her POA. Consultation Done:: Dr. Osorio Procedures Performed: see notes below Procedures: Needle aspiration of the L. hip under Floro. - Results and Findings Results and Findings: Laboratory Results - last 24 hr 07/05/18 07/05/18 05:55 05:55 WBC 6.4 RBC 3.56 L Hgb 9.4 L Hct 30.5 L MCV 85.7 MCH 26.4 L MCHC 30.8 L RDW 12.8 Plt Count 229 MPV 11.4 Immature Gran % (Auto) 0.50 H Immature Gran # (Auto) 0.03 Neutrophils % 71.2 Lymphocytes % 16.0 L Monocytes % 9.3 H Eosinophils % 2.5 Basophils % 0.5 Nucleated RBC % 0.0 Neutrophils # 4.6 Lymphocytes # 1.03 L Monocytes # 0.6 Eosinophils # 0.2 Absolute Basophils 0.0 Sodium 141 Plasma Sodium 141 Potassium 3.9 Chloride 108 H Carbon Dioxide 25.1 Anion Gap 11.8 BUN 22 Creatinine 1.86 H Est GFR (Non-Af Amer) 28 L BUN/Creatinine Ratio 11.8 Random Glucose 74 Calcium 8.3 Calcium Adj for Albumin 9.7 Total Bilirubin 0.2 AST 32 ALT 30 Alkaline Phosphatase 232 H Total Protein 6.0 L Albumin 1.8 L - Medications Medications: Active Medications Hydrocodone Bitart/Acetaminophen (Harper 5-325) 2 each PO Q6H PRN PRN Reason: Mild to Moderate Pain Stop: 07/31/18 08:33 Last Admin: 07/05/18 06:45 Dose: 2 each Documented by: Amlodipine Besylate (Norvasc) 5 mg PO DAILY [facility]ER Stop: 08/04/18 09:01 Last Admin: 07/05/18 09:25 Dose: 5 mg Documented by: Aspirin (Aspirin Enteric Coated) 81 mg PO DAILY SCOOTER Stop: 07/31/18 09:01 Last Admin: 07/05/18 08:20 Dose: 81 mg Documented by: Citalopram Hydrobromide (Celexa) 10 mg PO DAILY SCOOTER Stop: 07/31/18 09:01 Last Admin: 07/05/18 08:20 Dose: 10 mg Documented by: Enoxaparin Sodium (Lovenox) 30 mg SC Q24H [facility] Stop: 07/31/18 08:46 Last Admin: 07/05/18 08:20 Dose: 30 mg Documented by: Vancomycin HCl 1 gm/ Dextrose/ (Water) 250 mls @ 140 mls/hr IV Q48H [facility] Stop: 08/01/18 17:01 Last Admin: 07/04/18 16:24 Dose: 140 mls/hr Documented by: Insulin Glargine (Lantus) 15 units SC HS [facility] Stop: 08/02/18 21:01 Last Admin: 07/04/18 21:28 Dose: 15 units Documented by: Levothyroxine Sodium (Synthroid) 75 mcg PO DAILY@0700 [facility] Stop: 07/31/18 09:01 Last Admin: 07/05/18 06:45 Dose: 75 mcg Documented by: Lisinopril (Zestril) 10 mg PO DAILY [facility] Stop: 07/31/18 09:01 Last Admin: 07/05/18 08:20 Dose: 10 mg Documented by: Lorazepam (Ativan) 1 mg IV Q8H PRN PRN Reason: Anxiety Stop: 08/02/18 07:46 Last Admin: 07/04/18 12:00 Dose: 1 mg Documented by: Metoprolol Succinate (Toprol Xl) 50 mg PO DAILY SCOOTER Stop: 07/31/18 09:01 Last Admin: 07/05/18 08:20 Dose: 50 mg Documented by: Morphine Sulfate (Morphine Sulfate) 4 mg IV Q20M PRN PRN Reason: Severe Pain Stop: 07/31/18 07:13 Last Admin: 07/03/18 19:04 Dose: 4 mg Documented by: Polyethylene Glycol (Miralax) 17 gm PO DAILY PRN PRN Reason: Constipation Stop: 07/31/18 08:33 Last Admin: 07/05/18 06:45 Dose: 17 gm Documented by: Discontinued Medications Albuterol Sulfate (Albuterol Sulfate 2.5 Mg/0.5ml) 2.5 mg IH ONCE ONE Stop: 06/30/18 21:15 Last Admin: 06/30/18 21:26 Dose: 2.5 mg Documented by: Calcium Gluconate (Calcium Gluconate) 4.65 meq IV ONCE ONE Stop: 06/30/18 21:16 Last Admin: 06/30/18 21:33 Dose: 4.65 meq Documented by: Diatrizoate Meglum/Diatrizoate Sod (Gastrografin Solution) 60 ml PO ONCE ONE Stop: 06/30/18 20:16 Last Admin: 06/30/18 20:25 Dose: 60 ml Documented by: Furosemide (Lasix) 40 mg IV ONCE ONE Stop: 07/04/18 08:44 Last Admin: 07/04/18 09:27 Dose: 40 mg Documented by: Furosemide (Lasix) 40 mg IV ONCE ONE Stop: 07/05/18 08:52 Last Admin: 07/05/18 09:25 Dose: 40 mg Documented by: Sodium Chloride (Sodium Chloride 0.9%) 1,000 mls @ 999 mls/hr IV .Q1H1M ONE Stop: 06/30/18 21:52 Last Infusion: 06/30/18 22:08 Dose: Infused Documented by: Sodium Chloride (Sodium Chloride 0.9%) 1,000 mls @ 250 mls/hr IV .Q4H ONE Stop: 07/01/18 02:54 Last Infusion: 07/01/18 02:58 Dose: Infused Documented by: Insulin Human Regular 100 (units/ Sodium Chloride) 101 mls @ 5.77 mls/hr IV TITR PRN; Protocol PRN Reason: Hyperglycemia Stop: 07/30/18 23:10 Last Titration: 07/01/18 07:23 Dose: 0 units/kg/hr, 0 mls/hr Documented by: Ceftriaxone Sodium (Rocephin 1000 Mg Er Piggyback) 1,000 mg in 100 mls @ 200 mls/hr IV ONCE ONE Stop: 07/01/18 00:05 Last Infusion: 07/01/18 00:22 Dose: Infused Documented by: Sodium Chloride (Sodium Chloride 0.9%) 1,000 mls @ 250 mls/hr IV .Q4H PRN PRN Reason: HYDRATION Stop: 07/31/18 00:02 Last Infusion: 07/01/18 10:55 Dose: 0 mls/hr Documented by: Sodium Chloride (Sodium Chloride 0.9%) 1,000 mls @ 125 mls/hr IV .Q8H PRN PRN Reason: HYDRATION Stop: 07/31/18 10:34 Last Infusion: 07/04/18 09:37 Dose: Infused Documented by: Insulin Glargine (Lantus) 15 units SC [facility] Stop: 07/31/18 21:01 Last Admin: 07/01/18 20:58 Dose: 15 units Documented by: Insulin Human Lispro (Humalog) 5 units SC ACINS [facility] Stop: 07/31/18 12:01 Last Admin: 07/02/18 17:35 Dose: Not Given Documented by: Insulin Human Lispro (Humalog) 0 units SC ACHSINS [facility]; Protocol Stop: 07/31/18 21:01 Last Admin: 07/02/18 17:27 Dose: Not Given Documented by: Insulin Human Lispro (Humalog) 5 units SC ONCE ONE Stop: 07/02/18 21:46 Last Admin: 07/02/18 21:55 Dose: 5 units Documented by: Insulin Human Regular (Humulin R) 6 units 0.1 units/kg (6 units) IV ONCE ONE Stop: 06/30/18 20:54 Last Admin: 06/30/18 21:11 Dose: 6 units Documented by: Lorazepam (Ativan) 1 mg IV ONCE ONE Stop: 07/02/18 12:16 Last Admin: 07/02/18 12:07 Dose: 1 mg Documented by: Morphine Sulfate (Morphine Sulfate) 4 mg IV Q20M PRN PRN Reason: Pain Stop: 07/30/18 19:46 Last Admin: 07/01/18 04:52 Dose: 4 mg Documented by: Ondansetron HCl (Zofran) 4 mg IV ONCE ONE Stop: 06/30/18 19:46 Last Admin: 06/30/18 20:07 Dose: 4 mg Documented by: Sodium Polystyrene Sulfonate (Sodium Polystyrene Sulfonate) 15 g PO ONCE ONE Stop: 06/30/18 23:09 Last Admin: 06/30/18 23:16 Dose: 15 g Documented by: - Disposition Disposition: Short Term Hospital Inpatient Condition: Serious Discharge Date: 07/05/18 Discharge Time: 12:57
[2018-07-05 19:34] VITALS: BP 137/53
[2018-07-08] MEDS ORDERED: VANCOMYCIN HCL LEVEL XX ONE (16:30)
== END 2018-07-05 19:55 | disposition short-term general hospital (02) | DRG 560 ==
LOC: ER 17:41 → MS 23:52
PROVIDERS: ADMIT Family Medicine; ATTEND Family Medicine
DX: R11.2 Nausea with vomiting, unspecified; D63.1 Anemia in chronic kidney disease; I73.9 Peripheral vascular disease, unspecified; E87.5 Hyperkalemia; Z96.642 Presence of left artificial hip joint; T84.52XA Infection and inflammatory reaction due to internal left hip prosthesis, initial encounter; I12.9 Hypertensive chronic kidney disease with stage 1 through stage 4 chronic kidney disease, or unspecified chronic kidney disease; R10.9 Unspecified abdominal pain; B95.2 Enterococcus as the cause of diseases classified elsewhere; Z22.322 Carrier or suspected carrier of Methicillin resistant Staphylococcus aureus; E11.65 Type 2 diabetes mellitus with hyperglycemia; E11.22 Type 2 diabetes mellitus with diabetic chronic kidney disease; E86.0 Dehydration; N10 Acute pyelonephritis; Z79.4 Long term (current) use of insulin; N18.4 Chronic kidney disease, stage 4 (severe); E87.0 Hyperosmolality and hypernatremia
CPT/HCPCS: 20610; 36415; 36600; 71010; 71045; 74176; 77002; 80048; 80053; 81001; 82009; 82803; 82947; 83605; 83690; 84132; 84484; 85025; 85652; 86140; 87040; 87070; 87077; 87081; 87086; 87186; 87205; 89051; 93005; 94640; 94664; 96361; 96374; 96375; 99285; J2405